=== PATIENT | male | born 1960 | race Caucasian/White ===

== ENCOUNTER 2024-10-19 13:56 | Inpatient (IN) | payer OTHER, SELFPAY ==
[2024-10-16 20:18] VITALS: BP 144/97
[2024-10-16 20:22] LABS: Glucose - Point of Care 121 mg/dl (70-99)
--- NOTE | 2024-10-16 20:38 | ED.CVA ---
History of Present Illness
General
Chief Complaint: CVA/TIA Symptoms
Source: patient, ambulance crew and other (Patient's roommate who I spoke to over the phone at [phone])
Exam Limitations: none
Time Seen by Provider: 10/16/24 20:22
Nursing documentation reviewed up to this point in time: agreed with
Onset of Stroke Symptoms
Onset of symptoms known: No
Date of onset of symptoms: 10/16/24
Time pt last seen normal is known: No
Date last time pt seen normal: 10/16/24
History of Present Illness
History of Present Illness:
The patient is a 63-year-old man with a past medical history of traumatic brain injury and strokes in the past with baseline ataxia and some speech difficulties, who was noticed by his roommate to have great trouble speaking and performing simple
tasks today at around 6 PM. His roommate reports that he was working all day today but when he got home at 6 PM, he noticed the changes with the patient. The patient is a vague historian. On arrival, he denies any speech issues, weakness,
numbness and headache. However, his roommate reports that he is greatly concerned about the changes that he is observed in the patient. He reports that prior to arrival to the ED, the patient was saying things that were completely
incomprehensible. He reports that he was completely slurring his words. Additionally, he reports that the patient had difficulty using a zipper as well as using utensils to eat. His remade states this is very unusual for him.
Past History
Past History
ED Past Medical History: CVA and Other (Traumatic brain injury 18 months ago )
ED Past Surgical History: Appendectomy, Orthopedic (Rotator cuff repair ) and Other (Hemorrhoidectomy )
Social History
Tobacco: Non-smoker
Alcohol: None
Drug: None
Personal: Single
Living: with roommate
Employment: Not employed (Recently lost his job)
Family History
Family History: Other
Review of Systems
Review of Systems
Allergies reviewed?: Yes
All Other Systems: ROS reviewed and negative except as documented in HPI and ROS
Constitutional: Reports no symptoms
EENT: Reports no symptoms
Respiratory: Reports no symptoms
Cardiac: Reports no symptoms
ABD/GI: Reports no symptoms
: Reports no symptoms
Musculoskeletal: Reports no symptoms
Skin: Reports no symptoms
Neurological: Reports other
Endocrine: Reports no symptoms
Hematologic/Lymphatic: Reports no symptoms
Psychiatric: Reports no symptoms
Phy Exam
Physical Exam
Physical Exam:
Physical Exam
General: no apparent distress, not acutely ill
Neck: supple. no meningeal signs. normal psoterior pharynx
Heart: s1/s2 regular rate and rhythm,
Lungs: no acute respiratory distress. clear bilaterally
Abdomen: normal bowel sounds. not tender. no CVAT
Neuro: alert and orientedx3 Cranial nerves equal and symmetric bilaterally. Patient very ataxic with finger-nose. Visual santos intact. Extraocular muscles intact. 5 out of 5 strength in all extremities with no
drift. Patient with slurring of speech and having some difficulty naming objects but overall speech is understandable
Skin: no rash
Psychiatric: well kept. interactive and cooperative
Extremities: no edema. no calf tenderness. negative homans. good distal pulses
Scores
NIH Stroke Score
Level of Consciousness: 0 - Alert
LOC Questions: 0-Answers both correctly
LOC Commands: 0-Performs both correctly
Best Horizontal Gaze: 0-Normal
Visual Santos: 0=Normal, no visual loss
Facial Palsy: 0=Normal, symmetrical
Motor - Right Arm: 0=No drift 10 seconds
Motor - Left Arm: 0=No drift 10 seconds
Motor - Right Le-No drift 5 seconds
Motor - Left Le-No drift 5 seconds
Limb Ataxia: 1-Present in one limb
Sensation: 0-Normal
Best Language: 1-Mild aphasia
Dysarthria: 1-Mild slurring
Extinction and Inattention: 0-No abnormality
Total Score:: 3
Course
Orders/Labs/Results
Orders:
Orders
10/16/24 20:33
CT Head W/o Iv Contrast Urgent
Comment:
Reason For Exam: aphasia
10/16/24 20:34
Urine Drug Abuse Screen Urgent
10/16/24 20:37
Electrocardiogram (*1) Urgent
Reason for Study: TIA/Stroke
EKG- Treatment ONCE
10/16/24 20:41
Alcohol Urgent
Basic Metabolic Panel Urgent
Complete Blood Count/With Diff Urgent
Abnormal Lab Results
10/16/24 10/16/24
20:20 20:41
RBC 4.05 L 10^6/uL
(4.70-6.10)
MCV 97.0 H fL
(80.0-94.0)
MCH 34.8 H pg
(27.0-31.0)
Absolute Monos (auto) 0.9 H 10^3/uL
(0.1-0.6)
Monocytes % 10.2 H %
(1.7-9.3)
Chloride 108 H mmol/L
(98-107)
Carbon Dioxide 21 L mmol/L
(22-30)
Calcium 7.0 L mg/dl
(8.4-10.2)
POC Glucose 121 H mg/dl
(70-99)
10/16/24 20:41
10/16/24 20:41
Vital Signs
Initial and Last Documented VS:
Initial Vital Signs
Temp Pulse Resp BP Pulse Ox
98 F 101 22 144/97 98
10/16/24 20:18 10/16/24 20:18 10/16/24 20:18 10/16/24 20:18 10/16/24 20:18
Last Documented Vital Signs
Temp Pulse Resp BP Pulse Ox
98 F 96 20 144/97 95
10/16/24 20:18 10/16/24 22:45 10/16/24 22:45 10/16/24 20:18 10/16/24 22:45
MDM/Problems Addressed
Differential Diagnosis Includes:
Acute CVA, hyponatremia, hypoglycemia, alcohol intoxication
MDM/Problems Addressed:
Patient arrives with increased difficulty speaking and performing simple tasks
Chronic conditions affecting care:
History of brain injury
Acute Exacerbation and/or Progression of Chronic Illness:
Patient may have acute exacerbation of chronic neurological infarct
*Radiology
Radiology exam reviewed: radiology read reviewed
*Pulse Oximetry
Patient hypoxic: no
*EKG
Interpreted by ED Provider?: Yes
Interpretation: normal
Comparison EKG: no comparison EKG present
Rate: normal
Rhythm: sinus
Buckner: normal axis
Interval: normal interval
QRS Pattern: normal QRS
Ischemia: no ischemia
*Hard Tile Setter Interpretation
Rate: normal
Interpretation: normal
Rhythm: sinus
*Critical Care Note
Total Time (30-74mins, 75-104mins- exclusive of procedures): Not Applicable
Data Reviewed
Review of Other/Old Records Reveals: Radiology Studies (CT head reviewed from 2018 which shows concerns for chronic infarcts)
Source: patient and other (Patient's roommate)
Update Note
Update Note:
Patient is not a thrombolytics candidate given time of onset of symptoms are unknown and stroke score is low at 3
ED Attending Note
-
Portions of this chart may have been created with voice recognition software.� Occasional wrong word or��sound alike� substitutions may have occurred due to the inherent limitations of voice recognition software.
Discharge Plan
Departure
Patient Disposition: Admit
Date of Disposition: 10/16/24
Time of Disposition: 22:52
Admit to: Telemetry
Presentation/result/management discussed w/ accepting MD/DO: Hospitalist
Patient with high blood pressure during this ER visit?: Yes
Condition: Fair
Covid-19: Not Applicable
Discharge Problem:
acute CVA
Prescriptions:
No Action
sertraline 25 MG tablet
25 mg PO DAILY
prednisone 20 MG tablet
40 mg PO DAILY Qty: 6 0RF
clindamycin HCl 300 MG capsule
300 mg PO TID Qty: 21 0RF
Referrals:
UNKNOWN - PT DOES,NOT KNOW [Family Provider] -
Interventions
Interventions:
*Risk Screen - Suicide Last Done: 10/16/24 20:18
*General Assessment Last Done: 10/16/24 20:18
*Neglect/Abuse Screening Last Done: 10/16/24 20:18
ED- Pulmonary Assessment Last Done: 10/16/24 21:39
ED- Neurological Assessment Last Done: 10/16/24 22:43
ED- Cardiac Assessment Last Done: 10/16/24 21:39
Discharge Date and Time
Print Language: NEPALI
[2024-10-16 20:52] LABS: % Basophils 0.9 % (0-2); % Eosinophils 2.2 % (0-6); % Immature Granulocytes 0.2 % (0-0.5); % Lymphocytes 23.9 % (20.5-51.1); % Monocytes 10.2 % (1.7-9.3); % Neutrophils 62.6 % (42.2-75.2); Absolute Basophils 0.1 10^3/uL (0-0.2); Absolute Eosinophils 0.2 10^3/uL (0-0.7); Absolute Lymphocytes 2.2 10^3/uL (1.2-3.4); Absolute Monocytes 0.9 10^3/uL (0.1-0.6); Absolute Neutrophils 5.7 10^3/uL (1.4-6.5); Hematocrit 39.3 % (39.0-52.0); Hemoglobin 14.1 g/dL (13.0-18.0); Mean Corp Hgb Conc. 35.9 g/dL (33.0-37.0); Mean Corpuscular Hgb 34.8 pg (27.0-31.0); Mean Platelet Volume 9.9 fL (7.4-10.4); Nucleated Red Blood Cells % 0 % (-); Platelet Count 261 10^3/uL (130-400); Red Blood Cell Count 4.05 10^6/uL (4.70-6.10); Red Cell Dist. Width 14.5 % (11.5-14.5); White Blood Cell Count 9.1 10^3/uL (4.8-10.8)
[2024-10-16 21:16] LABS: Alcohol None Detected; Blood Urea Nitrogen 16 mg/dl (9-20); Carbon Dioxide 21 mmol/L (22-30); Chloride 108 mmol/L (98-107); Glucose 85 mg/dl (70-99); Sodium 136 mmol/L (135-145); eGFR > 60.00
[2024-10-16 22:43] VITALS: BMI 29.1
[2024-10-16 23:00] VITALS: BP 131/92
--- NOTE | 2024-10-16 23:33 | HPS.HSE ---
Family Physician
-
Family Physician: NOT KNOW UNKNOWN - PT DOES
Chief Complaint
-
Slurred speech and dropping objects
History of Present Illness
This is a 63-year-old with past medical history significant for TBI, known word finding difficulties, prior occipital CVA about 15 years ago, brought in by EMS after a roommate found him to have some word finding difficulties and dropping objects.
Patient is a fairly poor historian likely due to memory issues. He himself denies any symptoms. Per EMS record with a roommate came home from work at around 6 PM and found patient with slurred speech and dropping objects. Was reported to be
incomprehensible which is unusual for him. Was having difficulty with was saying things that were completely incomprehensible. He had difficulty using a zipper as well as using utensils to eat. Patient himself denies any changes. He denies any
weakness. He reports some mild tingling at the fingertips but otherwise no other focal neurological deficits. He remembers his history of TBI. He does not remember his history of a CVA. He denies taking any medications. He denies having any
facial asymmetry, difficulty swallowing or speaking.
In the emergency department he was afebrile, blood pressure was 145/97 with a pulse of 96. ECG showed normal sinus rhythm with a rate of 97. He had a CT of the head which shows no acute findings. CBC was unremarkable. Electrolytes BUN/creatinine
were within normal range.
Medical History
Past Medical History
Past Medical History: Reports CVA
Additional Past Medical History:
Traumatic brain injury
Past Surgical History: Reports Appendectomy
Additional Past Surgical History:
Hernia repair
Social History
Tobacco: Smoker
Alcohol: Daily
Drug: None
Personal: Single
Living: With Roomate
Employment: Disabled
Family History
Family History: Not pertinent
Allergies / Home Medications
Allergies reflects when Allergies were last updated in [facility].
Home Medications with original date entered in [facility]
Allergy/Medication List:
Allergies
Allergy/AdvReac Type Severity Reaction Status Date / Time
amoxicillin [From Augmentin] Allergy Unknown Verified 10/16/24 20:18
clavulanic acid Allergy Unknown Verified 10/16/24 20:18
[From Augmentin]
Home Medications
sertraline 25 mg tablet 25 mg PO DAILY 01/17/10
prednisone 20 mg tablet 40 mg (2 x 20 mg) PO DAILY #6 tabs 10/31/19
clindamycin HCl 300 mg capsule 300 mg PO TID #21 caps 03/14/20
Review of Systems
-
Constitutional: Reports No Symptoms
EENT: Reports No Symptoms
Respiratory: Reports No Symptoms
Cardiac: Reports No Symptoms
Abdomen/GI: Reports No Symptoms
: Reports No Symptoms
Musculoskeletal: Reports No Symptoms
Skin: Reports No Symptoms
Neurological: Reports No Symptoms
Endocrine: Reports No Symptoms
Hematologic/Lymphatic: Reports No Symptoms
Psych: Reports No Symptoms
Physical Exam
Vital Signs
Vital Signs
Temp Pulse Resp BP Pulse Ox
98 F 96 20 144/97 95
10/16/24 20:18 10/16/24 22:45 10/16/24 22:45 10/16/24 20:18 10/16/24 22:45
Physical Exam
General: Well Developed, Well Nourished, No Apparent Distress and Comfortable
HEENT: NormoCephalic, Anicteric, Moist mucous membranes and Atraumatic
Respiratory: Clear
Cardiac: S1/S2 and Regular Rhythm
Breast: Deferred by me
GI: Soft, Non Tender, Non Distended and Normal Bowel Sounds
Rectal: Deferred by Provider
Genito-urinary: Deferred by me
Musculoskeletal: No Clubbing, No Cyanosis and No Edema
Skin: Warm
Neuro: AO x 3, Nonfocal/grossly intact and Slurred Speech
Psych: Calm
Laboratory Results
-
10/16/24 20:41
10/16/24 20:41
Laboratory Results
Total Bilirubin Cancelled 10/16/24 20:41
AST Cancelled 10/16/24 20:41
ALT Cancelled 10/16/24 20:41
Alkaline Phosphatase Cancelled 10/16/24 20:41
Data Reviewed
-
CT Scan: Report Reviewed by me
Lab Data: Labs Reviewed by me
Old Records: Reviewed
Impression/Plan
-
IMPRESSION:
Patient with history of TBI and prior CVA presents to the emergency department with episode of slurred speech and difficulty manipulating objects which are unusual for him. On my examination is speech remains slurred but he had no other focal
neurological deficits. Unclear whether the current finding is chronic or part of the presenting episode. Patient is not on any medications at home and is a very poor historian.
PLAN:
1. TIA/CVA
- admit to telemetry
- aspirin 81 for now
- check cardiovascular panel, tsh, esr, b12
- u/a
- MRI and MRA
- speech, pt ot consult
- neurology consult
DVT - lovenox sq
Code status - full code
[2024-10-17] VITALS (10 sets, daily range): BP systolic 124–163; BP diastolic 85–102; PULSE 83–88; O2SAT 96–99; BMI 28.9
--- NOTE | 2024-10-17 01:40 | PTCARENOTE ---
Pt received from ED via stretcher at 0120. Pt pleasant, AAOX3, VSS, and able to ambulate into room with 1x assistance. Bed alarm placed and plugged in. Pt exhibits slurred speech and dysphasia, unchanged from ED NIH assessment. Pt receptive to room
and call villalta. Pt bed in lowest position and call villalta within reach. Pt educated on importance of call villalta usage, pt relays understanding and cooperation. Will continue with current plan of care.
[2024-10-17 02:07] LABS: Urine Albumin Negative (Neg - Trace); Urine Bilirubin Negative (Negative); Urine Character Clear (Clear); Urine Color Yellow; Urine Glucose Negative (Negative); Urine Ketone Negative (Negative); Urine Leukocyte Negative (Negative); Urine Nitrite Negative (Negative); Urine Occult Blood 1+ (Negative); Urine Specific Gravity 1.015 (<1.030); Urine Urobilinogen Negative (Neg - 1+); Urine pH 6.5 (5.0-9.0)
[2024-10-17 02:25] LABS: Amphetamines Negative (Negative); Barbiturates Negative (Negative); Benzodiazepines Negative (Negative); Buprenorphine Negative (Negative); Cocaine Negative (Negative); Marijuana Negative (Negative); Methadone Negative (Negative); Methamphetamines Negative (Negative); Opiates Negative (Negative); Phencyclidine Negative (Negative); Tricyclic Antidepressants Negative (Negative); Urine Bacteria Few (Negative); Urine White Cell 0-2 /HPF (0-5)
[2024-10-17] MEDS: LOW STRENGTH ASPIRIN 81 MG PO (08:10)
[2024-10-17 08:50] LABS: Erythrocyte Sed Rate 14 mm/hour (0-20)
[2024-10-17 09:16] LABS: Blood Urea Nitrogen 14 mg/dl (9-20); Calcium 8.7 mg/dl (8.4-10.2); Carbon Dioxide 23 mmol/L (22-30); Chloride 105 mmol/L (98-107); Estimated Creatinine Clearance 80 ml/min; Glucose 98 mg/dl (70-99); HDL Cholesterol 64 mg/dl; LDL Cholesterol, Calculated 122 mg/dl; Potassium 4.2 mmol/L (3.5-5.1); Sodium 139 mmol/L (135-145); Total Cholesterol 207 mg/dl (50-199); Triglyceride 105 mg/dl (10-149); Very Low Density Lipoprotein 21 mg/dl (0-30); eGFR > 60.00
[2024-10-17 10:02] LABS: Glycohemoglobin (HgbA1c) 5.3 % (4.0-5.6)
[2024-10-17] MEDS: PLAVIX 300 MG PO (12:30)
--- NOTE | 2024-10-17 14:58 | PTOTSP ---
Speech Therapy Evaluation:
Pt exhibits clinical signs of oropharyngeal dysphagia, likely acute on chronic related to history of CVA and TBI, compounded by acute/subacute infarcts throughout left cerebral hemisphere. Pt remains at in increased risk of aspiration and related
complication given cognitive status with noted impulsivity in relation to bolus size. Pt demonstrated no overt s/sx of aspiration on evaluation and passed nursing 3oz swallow screen. WBC WNL. No CXR completed at this time.
Additionally, pt presents with mild dysarthria in conversation as characterized by reduced articulatory precision, resulting in mildly decreased speech intelligibility. Pt with known cognitive deficits, however no documentation of ST hx or
standardized testing on file, therefore difficult to differentiate new versus old deficits. Pt would benefit from ongoing assessment.
Recommend:
1. Continue regular solids and thin liquids
2. Medications as tolerated
3. General aspiration precautions
4. Supervision with PO intake to ensure small bites/sips and slow rate
5. ELECTRIC SHIPYARD OPERATOR to follow to monitor tolerance of current diet level (likely brief) and for further cognitive assessment given level of independence CAN CRIMPER with acute on chronic CVA and TBI
--- NOTE | 2024-10-17 15:03 | W.PN.HOSP.TC ---
Today's Communication/Plan
-
neuro recs
dapt
echo
carotid us
Assessment / Plan
Assessment / Plan
General: Well Developed, Well Nourished, No Apparent Distress and Comfortable
HEENT: NormoCephalic, Anicteric, Moist mucous membranes and Atraumatic
Respiratory: Clear
Cardiac: S1/S2 and Regular Rhythm
Breast: Deferred by me
GI: Soft, Non Tender, Non Distended and Normal Bowel Sounds
Rectal: Deferred by Provider
Genito-urinary: Deferred by me
Musculoskeletal: No Clubbing, No Cyanosis and No Edema
Skin: Warm
Neuro: AO x 3, Nonfocal/grossly intact and Slurred Speech
Psych: Calm
Patient with history of TBI and prior CVA presents to the emergency department with episode of slurred speech and difficulty manipulating objects which are unusual for him. On my examination is speech remains slurred but he had no other focal
neurological deficits. Unclear whether the current finding is chronic or part of the presenting episode. Patient is not on any medications at home and is a very poor historian.
PLAN:
#CVA
#Several scattered small nonhemorrhagic acute/subacute infarcts throughout the left cerebral hemisphere
� Plavix load, continue Plavix daily
� Continue aspirin
� Neurology consulted
� Initiate statin
� Hemoglobin A1c 5.3
� Follow-up echo
� Follow-up carotid ultrasounds
DVT - lovenox sq
Code status - full code
Total time spent on today's encounter was 50 minutes which included time spent in counseling the patient/family regarding diagnosis and treatment plan as listed above, goals of care, and symptom management. Case was discussed with nursing staff,
specialists, and care coordinators/case management. All labs and imaging personally reviewed by me. Remainder the time spent in detailed review of previous records, lab data, imaging, and other medical provider documentation.
Anticipated Discharge: > 48 hours
Subjective/Interval History
-
Date of Service: October 17, 2024
No acute events
Objective Data
-
Labs:
Laboratory Results
10/17/24
07:45
Sodium 139
Potassium 4.2
Chloride 105
Carbon Dioxide 23
BUN 14
Creatinine 0.9
Glucose 98
Calcium 8.7 D
Vital Signs:
Vital Signs
Temp Pulse Resp BP Pulse Ox
97.6 F 67 18 134/85 96
10/17/24 11:57 10/17/24 11:57 10/17/24 11:57 10/17/24 11:57 10/17/24 11:57
I&O
10/16/24 10/17/24 10/18/24
06:59 06:59 06:59
Output Total 450 / 450
Balance -450 / -450
Review of Systems
-
History Source: Patient
All other systems: Not reviewed unless documented
Data Reviewed
-
CT Scan: Report Reviewed by me
MRI: Report Reviewed by me
Labs: Labs Reviewed by me
[2024-10-17] MEDS: LIPITOR 40 MG PO (17:59)
[2024-10-17] MEDS: LOVENOX 40 MG SC (17:59)
[2024-10-18 03:00] VITALS: BP 133/92
[2024-10-18 07:03] VITALS: BP 157/85
[2024-10-18 08:08] LABS: Hemoglobin 15.1 g/dL (13.0-18.0); Mean Corp Hgb Conc. 35.1 g/dL (33.0-37.0); Mean Corpuscular Hgb 34.2 pg (27.0-31.0); Mean Corpuscular Volume 97.5 fL (80.0-94.0); Mean Platelet Volume 9.7 fL (7.4-10.4); Platelet Count 285 10^3/uL (130-400); Red Blood Cell Count 4.41 10^6/uL (4.70-6.10); Red Cell Dist. Width 14.6 % (11.5-14.5)
[2024-10-18] MEDS: PLAVIX 75 MG PO (08:09)
[2024-10-18] MEDS: LOW STRENGTH ASPIRIN 81 MG PO (08:09)
[2024-10-18 08:38] LABS: ALT (SGPT) 34 U/L (0-50); AST (SGOT) 31 U/L (17-59); Alkaline Phosphatase 61 U/L (38-126); Blood Urea Nitrogen 14 mg/dl (9-20); Calcium 8.6 mg/dl (8.4-10.2); Carbon Dioxide 23 mmol/L (22-30); Chloride 104 mmol/L (98-107); Estimated Creatinine Clearance 80 ml/min; Glucose 94 mg/dl (70-99); Potassium 4.4 mmol/L (3.5-5.1); Sodium 136 mmol/L (135-145); Total Bilirubin 1.3 mg/dl (0.2-1.3); Total Protein 6.9 g/dl (6.3-8.2); eGFR > 60.00
[2024-10-18 11:06] VITALS: BP 130/86
--- NOTE | 2024-10-18 12:27 | CM ---
Pt seen bedside. Initial assessment completed. Admitted for slurred speech and dropping objects.
Pt reports that he lives w/ his friend, Will, in a [employer]- 6 steps to enter.
Pt states he is independent, denies any DME use.
Pt denies SNF/VN/PT hx. Pt states he did engage in OP therapy about 6 years ago.
Address, points of contact and insurance verified.
Pt reports that he is unemployed and uninsured at this time.
PCP: Pt states he does not have a PCP at this time
Pharmacy: Per chart, pt has [facility]. Pt belongs to [facility] in [place]
Plan: CM will cont to follow hospital course for d/c planning
--- NOTE | 2024-10-18 13:42 | CON.NEURO ---
Neuro Assessment/Plan
Assessment
brain MRI imgs rev'd, multiple scattered L MCA territory infarcts
MRA head/neck does not show any vascular lesions to explain this
Acute stroke
concern for cardioembolic etiology, as the L mca is the straightest path for emboli to travel
likelihood of finding source ~1/3
would advise cardiology consult for DALTON, zio patch
Consultation
Order
Date of Consultation: 10/17/24
Requesting Provider: D
Reason for Consult:
Subjective/Objective
Subjective Data
Date of Service: October 17, 2024
Seen yesterday, late note
This is a 63-year-old with past medical history significant for TBI, known word finding difficulties, prior occipital CVA about 15 years ago, brought in by EMS after a roommate found him to have some word finding difficulties and dropping objects.
difficulty using eating utensil, zipper
Patient is a fairly poor historian likely due to memory issues. He himself denies any symptoms.
Objective Data
Vital Signs
Temp Pulse Resp BP Pulse Ox
36.7 C 65 16 130/86 97
10/18/24 11:06 10/18/24 11:06 10/18/24 11:06 10/18/24 11:06 10/18/24 11:06
Lab Results
10/18/24 06:25
10/18/24 06:25
Sodium 136 mmol/L (135-145) 10/18/24 06:25
Potassium 4.4 mmol/L (3.5-5.1) 10/18/24 06:25
BUN 14 mg/dl (9-20) 10/18/24 06:25
Glucose 94 mg/dl (70-99) 10/18/24 06:25
Calcium 8.6 mg/dl (8.4-10.2) 10/18/24 06:25
LDL Cholesterol, Calc 122 mg/dl 10/17/24 07:45
Ur Buprenorphine Negative (Negative) 10/17/24 01:57
Patient Allergies
amoxicillin [From Augmentin] Allergy (Verified 10/16/24 20:18)
Unknown
clavulanic acid [From Augmentin] Allergy (Verified 10/16/24 20:18)
Unknown
Physical Exam
-
AAOx3, speech clear, language intact
VFF, EOMI, face symmetric
full strength b/l UE/LE
sensation intact touch/pin
DTR normal and symmetric
mild distal dysmetria
Medications
-
Active Medications
Generic Name Dose Route Start Last Admin
Trade Name Freq PRN Reason Stop Dose Admin
Acetaminophen 650 mg 10/17/24 01:12
Acetaminophen 650 Mg Rectal Suppository RECTAL 11/14/24 01:11
Q4HPRN PRN
MCKEON, mild pain, or temp >100.4F
Acetaminophen 650 mg 10/17/24 01:12
Acetaminophen 325 Mg Tablet PO 11/14/24 01:11
Q4HPRN PRN
MCKEON, mild pain, or temp >100.4F
Aspirin 81 mg 10/17/24 08:00 10/18/24 08:09
Aspirin 81 Mg Chewable Tablet PO 11/14/24 07:59 81 mg
DAILY DESTIN Administration
Atorvastatin Calcium 40 mg 10/17/24 18:00 10/17/24 17:59
Atorvastatin (Lipitor) 40 Mg Tablet PO 11/14/24 17:59 40 mg
QPM DESTIN Administration
Clopidogrel Bisulfate 75 mg 10/18/24 08:00 10/18/24 08:09
Clopidogrel 75 Mg Tablet PO 11/07/24 08:01 75 mg
DAILY DESTIN Administration
Enoxaparin Sodium 40 mg 10/17/24 18:00 10/17/24 17:59
Enoxaparin Sodium 40 Mg/0.4 Ml Syringe SC 11/14/24 17:59 40 mg
QPM DESTIN Administration
Sodium Chloride 0 flush 10/17/24 02:00
Sodium Chloride 0.9% (Flush) Syringe IV 11/14/24 01:59
PER PROTOCOL DESTIN
Home Medications
�Medication �Instructions �Recorded
No Meds [No Current Medications] 10/17/24
--- NOTE | 2024-10-18 14:32 | W.PN.HOSP.TC ---
Today's Communication/Plan
-
Plan for DALTON tentatively tomorrow
DAPT, Statin
Assessment / Plan
Assessment / Plan
General: Well Developed, Well Nourished, No Apparent Distress and Comfortable
HEENT: NormoCephalic, Anicteric, Moist mucous membranes and Atraumatic
Respiratory: Clear
Cardiac: S1/S2 and Regular Rhythm
Breast: Deferred by me
GI: Soft, Non Tender, Non Distended and Normal Bowel Sounds
Rectal: Deferred by Provider
Genito-urinary: Deferred by me
Musculoskeletal: No Clubbing, No Cyanosis and No Edema
Skin: Warm
Neuro: AO x 3, Nonfocal/grossly intact and Slurred Speech
Psych: Calm
Patient with history of TBI and prior CVA presents to the emergency department with episode of slurred speech and difficulty manipulating objects which are unusual for him. On my examination is speech remains slurred but he had no other focal
neurological deficits. Unclear whether the current finding is chronic or part of the presenting episode. Patient is not on any medications at home and is a very poor historian.
PLAN:
#CVA
#Several scattered small nonhemorrhagic acute/subacute infarcts throughout the left cerebral hemisphere sinus
� Concern for cardioembolic etiology
� Plavix load, continue Plavix daily
� Continue aspirin
� Neurology consulted
� Initiate statin
� Hemoglobin A1c 5.3
� Follow-up echo
� Plan for DALTON tomorrow, cardiology aware
DVT - lovenox sq
Code status - full code
Total time spent on today's encounter was 52 minutes which included time spent in counseling the patient/family regarding diagnosis and treatment plan as listed above, goals of care, and symptom management. Case was discussed with nursing staff,
specialists, and care coordinators/case management. All labs and imaging personally reviewed by me. Remainder the time spent in detailed review of previous records, lab data, imaging, and other medical provider documentation.
Anticipated Discharge: 24 - 48 hours
Subjective/Interval History
-
Date of Service: October 18, 2024
No acute events
Objective Data
-
Labs:
Laboratory Results
10/18/24
06:25
WBC 8.0
Hgb 15.1
Hct 43.0
Plt Count 285
Sodium 136
Potassium 4.4
Chloride 104
Carbon Dioxide 23
BUN 14
Creatinine 0.9
Glucose 94
Calcium 8.6
Total Bilirubin 1.3
AST 31
ALT 34
Alkaline Phosphatase 61
Vital Signs:
Vital Signs
Temp Pulse Resp BP Pulse Ox
98.0 F 65 16 130/86 97
10/18/24 11:06 10/18/24 11:06 10/18/24 11:06 10/18/24 11:06 10/18/24 11:06
I&O
10/17/24 10/18/24 10/19/24
06:59 06:59 06:59
Output Total 450 / 450
Balance -450 / -450
Review of Systems
-
History Source: Patient
All other systems: Not reviewed unless documented
Data Reviewed
-
CT Scan: Report Reviewed by me
MRI: Report Reviewed by me
Labs: Labs Reviewed by me
[2024-10-18 15:06] VITALS: BP 150/81
[2024-10-18] MEDS: LOVENOX 40 MG SC (17:03)
[2024-10-18] MEDS: LIPITOR 40 MG PO (17:03)
[2024-10-18 19:00] VITALS: BP 129/89
[2024-10-18 23:00] VITALS: BP 149/90
[2024-10-19] VITALS (7 sets, daily range): BP systolic 136–153; BP diastolic 88–96; PULSE 67
[2024-10-19] MEDS: LOW STRENGTH ASPIRIN 81 MG PO (08:13)
[2024-10-19] MEDS: PLAVIX 75 MG PO (08:13)
--- NOTE | 2024-10-19 08:16 | CON.CAR ---
Addendum entered and electronically signed by Audi Mehta DO 10/19/24 10:14:
I saw and examined the patient.
The Spinning Operator's note was reviewed and I agree with the note.
Comment:
Plan:
HPI: Patient came to [facility] ER on Saturday night with symptoms of possible stroke and MRI later demonstrated acute and subacute infarcts that are concerning for cardioembolic phenomenon and so cardiology has been consulted. Patient lives
with a roommate, patient is currently not working and has no insurance. Patient's roommate found patient to be confused and unable to speak in intelligible speech and also noted him to have trouble holding a fork to feed himself as of of his pants
on Saturday night. All this was unusual for the patient and so his roommate sent patient to the ER if patient was admitted. MRI of the brain showed several scattered small nonhemorrhagic acute and subacute infarcts throughout the left cerebral
hemisphere in the left MCA territory and this is concerning for possible cardioembolic phenomenon per neurology input. Neurology is recommending a DALTON. Patient denies history of DALTON and has never had upper endoscopy to his knowledge. Patient
denies any trouble swallowing. No history of varices. 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
Plan:
Discussed DALTON procedure including risks and benefits. He is agreeable.
Discussed 14 day monitor and he was agreeable.
Neuro work up and eval ongoing.
Patient was advised on the importance of smoking cessation.
Cont DAPT.
Original Note:
Consultation
Consultation Request
Date/Time Consultation Requested: 10/18/24 at 1700
Date/Time Consultation Performed: 10/19/24 at 0724
Requesting Provider: Dr. Heredia
Performing Provider: Dr. Mehta
Reason for Consultation: CVA, evaluation for DALTON
Medical History
-
History of Present Illness:
Patient came to [facility] ER on Saturday night with symptoms of possible stroke and MRI later demonstrated acute and subacute infarcts that are concerning for cardioembolic phenomenon and so cardiology has been consulted. Patient lives with
a roommate, patient is currently not working and has no insurance. Patient's roommate found patient to be confused and unable to speak in intelligible speech and also noted him to have trouble holding a fork to feed himself as of of his pants on
Saturday night. All this was unusual for the patient and so his roommate sent patient to the ER if patient was admitted. MRI of the brain showed several scattered small nonhemorrhagic acute and subacute infarcts throughout the left cerebral
hemisphere in the left MCA territory and this is concerning for possible cardioembolic phenomenon per neurology input. Neurology is recommending a DALTON. Patient denies history of DALTON and has never had upper endoscopy to his knowledge. Patient
denies any trouble swallowing. No history of varices. 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
PMH:
h/o subacute left occipital CVA 01/2010
h/o seizures
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
Smoker
Past Medical History
Past Medical History: Other (in HPI)
Past Surgical History: Appendectomy and Orthopedic
Social History
Tobacco: Smoker
Alcohol: Occasional (2-4 times a month)
Drug: None
Personal: Single
Living: With Roomate
Employment: Not Employed
Family History
Family History: Cancer
Allergies / Home Medications
Allergy/AdvReac Type Severity Reaction Status Date / Time
amoxicillin [From Augmentin] Allergy Unknown Verified 10/16/24 20:18
clavulanic acid Allergy Unknown Verified 10/16/24 20:18
[From Augmentin]
�Medication �Instructions �Recorded �Confirmed �Type
No Meds [No Current Medications] 10/17/24 10/17/24 History
Review of Systems
-
History Source: Patient
All other systems: Negative unless noted
Physical Exam
Vital Signs
Temp Pulse Resp BP Pulse Ox
97.7 F 70 18 148/96 96
10/19/24 08:13 10/19/24 08:13 10/19/24 08:13 10/19/24 08:13 10/19/24 08:13
GEN: Sleeping initially then awakens easily and is in NAD. AAOx3
HEENT: EOMI, MMM
LUNGS: RA. CTA B/L, no wheezes or rales
CV: SR on tele. Reg, S1/S2, no murmur
ABD: soft, BS+, NT, ND
EXT: No clubbing, cyanosis, lesions or edema B/L
NEURO: Gross non-focal
SKIN: Warm, dry and pink. No rash
Lab Results
CBC 10/18/2024: Hemoglobin 15.1, WBC 8, PLT 285
Chemistry 10/18/2024: Sodium 136, potassium 4.4, BUN 14, creatinine 0.9, blood sugar 94, AST 31, ALT 34
CVE 10/17/2024: Total cholesterol 207, TG 105, LDL 122, HDL 64
Impression / Plan
-
PCP: None
Cardiology: None
Impression:
Admitted with possible CVA, dysarthria 10/16/24
Scattered small nonhemorrhagic acute/subacute infarcts throughout the left cerebral hemisphere by MRI 10/17/24
h/o subacute left occipital CVA 01/2010
h/o seizures
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
Smoker
Echo 01/17/2010: Normal echo, EF 55%, no significant valve disease
Plan:
-Patient came to [facility] ER on Saturday night with symptoms of possible stroke and MRI later demonstrated acute and subacute infarcts that are concerning for cardioembolic phenomenon and so cardiology has been consulted. Patient lives
with a roommate, patient is currently not working and has no insurance. Patient's roommate found patient to be confused and unable to speak in intelligible speech and also noted him to have trouble holding a fork to feed himself as of of his pants
on Saturday night. All this was unusual for the patient and so his roommate sent patient to the ER if patient was admitted. MRI of the brain showed several scattered small nonhemorrhagic acute and subacute infarcts throughout the left cerebral
hemisphere in the left MCA territory and this is concerning for possible cardioembolic phenomenon per neurology input. Neurology is recommending a DALTON. Patient denies history of DALTON and has never had upper endoscopy to his knowledge. Patient
denies any trouble swallowing. No history of varices. 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
-ECG reviewed by me shows NSR without acute ST changes. Telemetry from this admission thus far reviewed by me at length and shows no evidence of atrial arrhythmia.
-Talked with patient about findings on MRI being suggestive of possible cardioembolic event. Talked about possible sources including blood clot in the heart and patient says that he understands. We talked about proceeding with a DALTON to better
visualize and rule out clot. We talked about DALTON procedure and risks versus benefits. Patient reports he makes his own medical decisions. Patient denies trouble swallowing or history of varices. Patient says he would be agreeable to proceed with
DALTON today.
-Will plan on DALTON 10/19/2024. We can likely cancel the previously planned TTE
-Could consider placing a 14 day Medilynx prior to d/c.
-Patient was advised on the importance of smoking cessation, but he is under a lot of stress because he is not working and it is also a habit while he is home alone.
-LDL 122 and patient was started on atorvastatin 40 mg daily, but he is not sure if he will be able to afford this.
-Patient was also started on aspirin and Plavix this admission and again he is not sure if he will be able to pay for this, but is hoping that he can buy generic medications.
-Patient also has a h/o seizure disorder and is no longer on antiseizure meds because he has not been able to afford to see any of his doctors and his prescriptions ran out.
-Patient reports his only family is a son who lives in [place], otherwise he relies on his roommate.
[2024-10-19 08:37] LABS: Hemoglobin 15.1 g/dL (13.0-18.0); Mean Corpuscular Hgb 34.6 pg (27.0-31.0); Mean Corpuscular Volume 96.1 fL (80.0-94.0); Platelet Count 286 10^3/uL (130-400); Red Blood Cell Count 4.37 10^6/uL (4.70-6.10); Red Cell Dist. Width 14.5 % (11.5-14.5); White Blood Cell Count 8.2 10^3/uL (4.8-10.8)
[2024-10-19 09:11] LABS: ALT (SGPT) 37 U/L (0-50); AST (SGOT) 35 U/L (17-59); Albumin 4.1 g/dl (3.5-5.0); Alkaline Phosphatase 62 U/L (38-126); Blood Urea Nitrogen 15 mg/dl (9-20); Calcium 8.8 mg/dl (8.4-10.2); Carbon Dioxide 23 mmol/L (22-30); Chloride 103 mmol/L (98-107); Estimated Creatinine Clearance 72 ml/min; Glucose 98 mg/dl (70-99); Potassium 4.6 mmol/L (3.5-5.1); Sodium 137 mmol/L (135-145); Total Bilirubin 1.1 mg/dl (0.2-1.3); Total Protein 7.2 g/dl (6.3-8.2); eGFR > 60.00
--- NOTE | 2024-10-19 11:17 | CM ---
CM placed a call to [facility] regarding MA for pt, left message.
Will provide pt w/ [facility] information as he does not belong to a PCP or current w/ any insurance.
Per chart, plan for DALTON procedure today
Plan: Home; no needs anticipated
CM will cont to follow for support and d/c planning
--- NOTE | 2024-10-19 13:26 | PTOTSP ---
Speech Therapy: Cognitive eval completed. Moderate to severe cognitive communication deficits characterized by poor expressive formulation, poor memory, limited insight into deficits, visual spatial deficits, decreased reasoning and attention.
Speech therapy is recommended to address these issues. Patient reports that he just needs to go home; does not think he will need any assistance after discharge. [place] Cognitive Assessment score of 12/30 (normal is >25)
--- NOTE | 2024-10-19 13:47 | W.PN.UPDATE ---
Update Note
Progress Note Update
.
Reviewed the DALTON with patient. He has a positive PFO by agitated saline contrast study. We discussed outpatient follow-up with interventional cardiology to discuss possible PFO closure if he turns out to be an acceptable candidate. He was not
enthusiastic about considering this but was not against following up. He may ultimately choose medical therapy.
--- NOTE | 2024-10-19 16:09 | W.PN.HOSP.TC ---
Today's Communication/Plan
-
US Legs
DC planning
Assessment / Plan
Assessment / Plan
Patient with history of TBI and prior CVA presents to the emergency department with episode of slurred speech and difficulty manipulating objects which are unusual for him. On my examination is speech remains slurred but he had no other focal
neurological deficits. Unclear whether the current finding is chronic or part of the presenting episode. Patient is not on any medications at home and is a very poor historian.
PLAN:
#Acute CVA
#Several scattered small nonhemorrhagic acute/subacute infarcts throughout the left cerebral hemisphere sinus
� Concern for cardioembolic etiology
� Plavix load, continue Plavix daily
� Continue aspirin
� Neurology consulted
� Initiated statin
� Hemoglobin A1c 5.3
� DALTON shows PFO but no cardiac source of emboli. Check US legs to rule out DVT
- For OP tele monitor
# PFO - follow with cards as OP
PT/OT eval
DC planning
DVT - lovenox sq
Code status - full code
Anticipated Discharge: Within 24 hours
Subjective/Interval History
-
Date of Service: October 19, 2024
He denies any limb weakness.
Feels speech was impaired.
He lives with a roommate. No immediate family per pt.
Denies MCKEON today.
He seems not to grasp the medical info given to him by me today . When told he had stroke , he didnt have any inquires further. He seems to have poor insight into his issues. He has hx of TBI .
Objective Data
-
Labs:
Laboratory Results
10/19/24
07:35
WBC 8.2
Hgb 15.1
Hct 42.0
Plt Count 286
Sodium 137
Potassium 4.6
Chloride 103
Carbon Dioxide 23
BUN 15
Creatinine 1.0
Glucose 98
Calcium 8.8
Total Bilirubin 1.1
AST 35
ALT 37
Alkaline Phosphatase 62
Vital Signs:
Vital Signs
Temp Pulse Resp BP Pulse Ox
97.0 F 60 18 153/88 96
10/19/24 15:34 10/19/24 15:34 10/19/24 15:34 10/19/24 15:34 10/19/24 15:34
I&O
10/18/24 10/19/24 10/20/24
06:59 06:59 06:59
Intake Total 420 / 420
Balance 420 / 420
Review of Systems
-
Unable to obtain full review of systems at this time due to: Other (due to cognitive issues)
Physical Exam
-
General: No Apparent Distress
Respiratory: Non Labored Respirations; Negative Accessory Resp Muscle Use
Cardiac: Regular Rhythm and S1/S2; Negative Tachycardic
GI: Soft
Neuro: AO x 3, No Motor Deficits and Other (speech slow but seems to get right words out); Negative Tremors or Facial Droop
Psych: Calm
Data Reviewed
-
Labs: Labs Reviewed by me
[2024-10-19] MEDS: LIPITOR 40 MG PO (16:44)
[2024-10-19] MEDS: LOVENOX 40 MG SC (16:44)
[2024-10-20 03:31] VITALS: BP 142/91
[2024-10-20 07:20] VITALS: BP 143/88
[2024-10-20 07:58] LABS: Hemoglobin 15.1 g/dL (13.0-18.0); Mean Corpuscular Hgb 34.7 pg (27.0-31.0); Mean Corpuscular Volume 96.6 fL (80.0-94.0); Mean Platelet Volume 10.1 fL (7.4-10.4); Platelet Count 275 10^3/uL (130-400); Red Blood Cell Count 4.35 10^6/uL (4.70-6.10); Red Cell Dist. Width 14.6 % (11.5-14.5); White Blood Cell Count 7.7 10^3/uL (4.8-10.8)
[2024-10-20 08:36] LABS: ALT (SGPT) 38 U/L (0-50); AST (SGOT) 33 U/L (17-59); Albumin 3.9 g/dl (3.5-5.0); Alkaline Phosphatase 55 U/L (38-126); Blood Urea Nitrogen 17 mg/dl (9-20); Calcium 8.7 mg/dl (8.4-10.2); Carbon Dioxide 24 mmol/L (22-30); Chloride 104 mmol/L (98-107); Estimated Creatinine Clearance 72 ml/min; Glucose 100 mg/dl (70-99); Potassium 4.9 mmol/L (3.5-5.1); Sodium 137 mmol/L (135-145); Total Protein 6.9 g/dl (6.3-8.2); eGFR > 60.00
[2024-10-20] MEDS: PLAVIX 75 MG PO (08:39)
[2024-10-20] MEDS: LOW STRENGTH ASPIRIN 81 MG PO (08:39)
--- NOTE | 2024-10-20 09:22 | W.PN.CARDCBS ---
Today's Communication / Plan
-
Again reviewed the DALTON with patient. He has a positive PFO by agitated saline contrast study.
Again discussed outpatient follow-up with interventional cardiology to discuss possible PFO closure if he turns out to be an acceptable candidate.
-He was not enthusiastic about considering this but was not against following up. He may ultimately choose medical therapy.
A 14 day Medilynx monitor has been placed.
Smoking cessation discussed.
LDL 122 and patient was started on atorvastatin 40 mg daily, but he is not sure if he will be able to afford this.
Cont DAPT as per neuro. Seizure disorder tx as per neuro.
Pt reports his only family is a son who lives in [place], otherwise he relies on his roommate.
Will arrange outpt follow up.
Please recall if needed.
Impression / Plan
-
.
PCP: None
Cardiology: None
Impression:
Admitted with possible CVA, dysarthria 10/16/24
Scattered small nonhemorrhagic acute/subacute infarcts throughout the left cerebral hemisphere by MRI 10/17/24
h/o subacute left occipital CVA 01/2010
h/o seizures
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
Smoker
PFO by agitated saline contrast study
Echo 01/17/2010: Normal echo, EF 55%, no significant valve disease
Plan:
Again reviewed the DALTON with patient. He has a positive PFO by agitated saline contrast study.
Again discussed outpatient follow-up with interventional cardiology to discuss possible PFO closure if he turns out to be an acceptable candidate.
-He was not enthusiastic about considering this but was not against following up. He may ultimately choose medical therapy.
A 14 day Medilynx monitor has been placed.
Smoking cessation discussed.
LDL 122 and patient was started on atorvastatin 40 mg daily, but he is not sure if he will be able to afford this.
Cont DAPT as per neuro. Seizure disorder tx as per neuro.
Pt reports his only family is a son who lives in [place], otherwise he relies on his roommate.
Will arrange outpt follow up.
Please recall if needed.
HPI: Patient came to [facility] ER on Saturday night with symptoms of possible stroke and MRI later demonstrated acute and subacute infarcts that are concerning for cardioembolic phenomenon and so cardiology has been consulted. Patient lives
with a roommate, patient is currently not working and has no insurance. Patient's roommate found patient to be confused and unable to speak in intelligible speech and also noted him to have trouble holding a fork to feed himself as of of his pants
on Saturday night. All this was unusual for the patient and so his roommate sent patient to the ER if patient was admitted. MRI of the brain showed several scattered small nonhemorrhagic acute and subacute infarcts throughout the left cerebral
hemisphere in the left MCA territory and this is concerning for possible cardioembolic phenomenon per neurology input. Neurology is recommending a DALTON. Patient denies history of DALTON and has never had upper endoscopy to his knowledge. Patient
denies any trouble swallowing. No history of varices. 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
Progress Note - Senior Grants Officer
Subjective
Date of Service: October 20, 2024
Pt seen and examined. No complaints. No chest pain or shortness of breath.
Objective
Labs:
10/20/24 07:32
10/20/24 07:32
Labs
Hgb 15.1 g/dL (13.0-18.0) 10/20/24 07:32
Hct 42.0 % (39.0-52.0) 10/20/24 07:32
Plt Count 275 10^3/uL (130-400) 10/20/24 07:32
Sodium 137 mmol/L (135-145) 10/20/24 07:32
Potassium 4.9 mmol/L (3.5-5.1) 10/20/24 07:
BUN 17 mg/dl (9-20) 10/20/24 07:32
Creatinine 1.0 mg/dL (0.7-1.3) 10/20/24 07:32
Glucose 100 mg/dl (70-99) H 10/20/24 07:32
Vital Signs and I&O:
Vital Signs
Temp Pulse Resp BP Pulse Ox
97.9 F 57 18 143/88 97
10/20/24 07:20 10/20/24 07:20 10/20/24 07:20 10/20/24 07:20 10/20/24 07:20
Vital Signs
Temp Pulse Resp BP Pulse Ox
97.9 F 57 18 143/88 97
10/20/24 07:20 10/20/24 07:20 10/20/24 07:20 10/20/24 07:20 10/20/24 07:20
Intake & Output
10/18/24 10/19/24 10/20/24 10/21/24
06:59 06:59 06:59 06:59
Intake Total 420 / 420 720 / 720
Balance 420 / 420 720 / 720
Physical Exam
Physical Exam
General: No acute distress, AAOX3
Neck: Negative JVD
Heart: Regular, Negative S3 positive S1/S2, Negative S4, No murmur
Lungs: CTA b/l, negative wheezes/rales/rhonchi
Abd: Positive BS, NT/ND, neg rebound/rigidity/guarding
Ext: Negative cyanosis/clubbing/edema
Neuro: nonfocal
--- NOTE | 2024-10-20 10:54 | CM ---
Addendum entered by Loulou Govea 10/20/24 12:24:
Per physician therapy recommendation is for acute rehab, patient reevaluated and referral sent to [facility], multiple messages left with [facility] to evaluate patient.
Addendum entered by Loulou Govea 10/20/24 10:58:
Information on [facility] will be provided to patient.
Original Note:
manager library reviewed patient's chart and spoke with patient and patient made aware that he has switched to inpatient, patient has no insurance, patient was working for [employer], but no longer has an income or medical insurance, referral sent to [facility]
to evaluate for medical insurance. manager library reached out to [facility] who reviewed patient progress with physical therapy and patient does not meet acute rehab criteria.
Plan; Plan is to home, referral sent to [facility].
[2024-10-20 11:50] VITALS: BP 136/90
--- NOTE | 2024-10-20 12:28 | W.PN.HOSP.TC ---
Today's Communication/Plan
-
DC planning
Assessment / Plan
Assessment / Plan
Patient with history of TBI and prior CVA presents to the emergency department with episode of slurred speech and difficulty manipulating objects which are unusual for him. On my examination is speech remains slurred but he had no other focal
neurological deficits. Unclear whether the current finding is chronic or part of the presenting episode. Patient is not on any medications at home and is a very poor historian.
PLAN:
#Acute CVA
#Several scattered small nonhemorrhagic acute/subacute infarcts throughout the left cerebral hemisphere sinus
� Concern for cardioembolic etiology
� Plavix loaded, continue Plavix daily
� Continue aspirin
� Neurology consulted -discussed with them today-advised to continue with medical treatment and okay for discharge from their standpoint.
� Initiated statin
� Hemoglobin A1c 5.3
� DALTON shows PFO but no cardiac source of emboli. US legs neg for DVT
- For OP tele monitor. No events on monitor
# PFO - follow with cards as OP
PT/OT eval
Medically stable for discharge. Discussed with case management regarding disposition. She made referral to [facility]
DVT - lovenox sq
Code status - full code
Anticipated Discharge: Today
Subjective/Interval History
-
Date of Service: October 20, 2024
Patient is alert and oriented x 3.
He denies any limb weakness or balance issues. Denying any speech impairment.
He scored 12/ 30 on [place] cognitive assessment score when tested by speech therapy. He has history of TBI.
Went over the findings of acute stroke and PFO but he does not seems to grasp or understand his disease processes ie findings or the treatments.
He says he got a son who lives in [place] and when offered to touch base with him he didn't say much.
Objective Data
-
Labs:
Laboratory Results
10/20/24
07:32
WBC 7.7
Hgb 15.1
Hct 42.0
Plt Count 275
Sodium 137
Potassium 4.9
Chloride 104
Carbon Dioxide 24
BUN 17
Creatinine 1.0
Glucose 100 H
Calcium 8.7
Total Bilirubin 1.0
AST 33
ALT 38
Alkaline Phosphatase 55
Vital Signs:
Vital Signs
Temp Pulse Resp BP Pulse Ox
97.8 F 77 18 136/90 97
10/20/24 11:50 10/20/24 11:50 10/20/24 11:50 10/20/24 11:50 10/20/24 11:50
I&O
10/19/24 10/20/24 10/21/24
06:59 06:59 06:59
Intake Total 420 / 420 720 / 720
Balance 420 / 420 720 / 720
Review of Systems
-
Unable to obtain full review of systems at this time due to: Other (cognitive impairment)
Respiratory: Denies Trouble Breathing
Cardiac: Denies Chest Pain or Palpitations
Abdomen/GI: Denies Abdominal Pain, Nausea or Vomiting
Neuro: Denies Headache
Physical Exam
-
General: Comfortable
Respiratory: Non Labored Respirations and Accessory Resp Muscle Use
Cardiac: Regular Rhythm and S1/S2; Negative Tachycardic
Neuro: AO x 3; Negative No Motor Deficits
Psych: Calm
Data Reviewed
-
Labs: Labs Reviewed by me
--- NOTE | 2024-10-20 13:29 | W.PN.NEURO.1 ---
Today's Communication / Plan
-
.
Subjective/Objective
Subjective Data
Date of Service: October 20, 2024
Neurology follow-up note
HPI: This is a 63-year-old man who presented to [facility] on 10/16/2024 and aphasia.
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
hemosiderin deposition.
DALTON(10/19/2024)-evidence of PFO with positive agitated saline contrast bubble study.
Lower extremity ultrasound�no evidence of DVT.
EKG: NSR, QTc Int : 457 ms
PDMP:none
Labs: ESR�14, MCV�97.0, normal sodium, hemoglobin A1c�5.3, LDL�122
MRA head/neck(motion artifact limited)�no high-grade occlusion.
PMH:TBI (2007), L occipital stroke(2010), HTN, DLP, vitamin D deficiency,ABA,
PSH: R neck biopsy, right rotator cuff repair, appendectomy,Hemorrhoidectomy
SH:lives with roommate, does not work, active smoker
FH:mother-laryngeal CA
All:amoxicillin, clavulanic acid
ROS: Limited due to aphasia.
General: Well developed. In no acute distress.
Cardio: Regular rate and rhythm without murmur. Extremities are without cyanosis or edema.
Neuro:
Mental Status: Alert, oriented to name. Moderate to severe nonfluent expressive aphasia. Follows simple requests.
Cranial Nerves: Pupils are equally round and reactive to light. EOMs full. Blink to threat right less than left. No ptosis. No nystagmus. V1-V3 intact to light touch and pinprick bilaterally, symmetric. Face symmetric. Normal hearing AU. The
palate elevated well. SCMs and traps 5/5. Tongue midline. No dysarthria.
Motor: No pronator or leg drift.
Reflexes: Negative Magdaleno's bilaterally.
Sensory: Limited exam due to aphasia
Coordination: No tremors myoclonic movements.
Gait: deferred
Assessment and Plan:
I. Acute left MCA territory stroke. Likely etiology�embolic.
II. Multifactorial encephalopathy (vascular, posttraumatic)
III. 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
IV. History of TBI
V. PFO. Risk of Paradoxical Embolism-4. 38% chance that stroke is due to PFO. 12% risk of 2 year recurrence of stroke/TIA.
-Continue Telemetry monitoring.
-Continue ASA 81 mg QD indefinitely and Plavix 75 mg QD for 21 days.
-Lipitor 40 mg QHS. LDL goal�less than 100.
-Vit b12, nicotine patch
-Cardiology follow-up (Holter, ILR)
-Continue speech therapy.
-DVT prophylaxis.
-Outpatient neurology follow-up
I personally reviewed all radiology and labs along with past medical records pertinent to current medical problems. Total time spent in patient care is 62 minutes.
Thank you for allowing us to participate in the care of this patient. Please do not hesitate to contact us with any questions or c
Objective Data
Vital Signs
Temp Pulse Resp BP Pulse Ox
36.6 C 77 18 136/90 97
10/20/24 11:50 10/20/24 11:50 10/20/24 11:50 10/20/24 11:50 10/20/24 11:50
Lab Results
10/20/24 07:32
10/20/24 07:32
Sodium 137 mmol/L (135-145) 10/20/24 07:32
Potassium 4.9 mmol/L (3.5-5.1) 10/20/24 07:32
BUN 17 mg/dl (9-20) 10/20/24 07:32
Glucose 100 mg/dl (70-99) H 10/20/24 07:32
Calcium 8.7 mg/dl (8.4-10.2) 10/20/24 07:32
LDL Cholesterol, Calc 122 mg/dl 10/17/24 07:45
Ur Buprenorphine Negative (Negative) 10/17/24 01:57
Patient Allergies
amoxicillin [From Augmentin] Allergy (Verified 10/16/24 20:18)
Unknown
clavulanic acid [From Augmentin] Allergy (Verified 10/16/24 20:18)
Unknown
Vital Signs and Labs
-
Vital Signs and Labs:
Vital Signs
Temp Pulse Resp BP Pulse Ox
36.6 C 77 18 136/90 97
10/20/24 11:50 10/20/24 11:50 10/20/24 11:50 10/20/24 11:50 10/20/24 11:50
Lab Results
10/20/24 07:32
10/20/24 07:32
Sodium 137 mmol/L (135-145) 10/20/24 07:32
Potassium 4.9 mmol/L (3.5-5.1) 10/20/24 07:32
BUN 17 mg/dl (9-20) 10/20/24 07:32
Glucose 100 mg/dl (70-99) H 10/20/24 07:32
Calcium 8.7 mg/dl (8.4-10.2) 10/20/24 07:32
LDL Cholesterol, Calc 122 mg/dl 10/17/24 07:45
Ur Buprenorphine Negative (Negative) 10/17/24 01:57
Medications
-
Medications:
Generic Name Dose Route Start Last Admin
Trade Name Freq PRN Reason Stop Dose Admin
Acetaminophen 650 mg 10/17/24 01:12
Acetaminophen 650 Mg Rectal Suppository RECTAL 11/14/24 01:11
Q4HPRN PRN
MCKEON, mild pain, or temp >100.4F
Acetaminophen 650 mg 10/17/24 01:12
Acetaminophen 325 Mg Tablet PO 11/14/24 01:11
Q4HPRN PRN
MCKEON, mild pain, or temp >100.4F
Aspirin 81 mg 10/17/24 08:00 10/20/24 08:39
Aspirin 81 Mg Chewable Tablet PO 11/14/24 07:59 81 mg
DAILY DESTIN Administration
Atorvastatin Calcium 40 mg 10/17/24 18:00 10/19/24 16:44
Atorvastatin (Lipitor) 40 Mg Tablet PO 11/14/24 17:59 40 mg
QPM DESTIN Administration
Clopidogrel Bisulfate 75 mg 10/18/24 08:00 10/20/24 08:39
Clopidogrel 75 Mg Tablet PO 11/07/24 08:01 75 mg
DAILY DESTIN Administration
Enoxaparin Sodium 40 mg 10/17/24 18:00 10/19/24 16:44
Enoxaparin Sodium 40 Mg/0.4 Ml Syringe SC 11/14/24 17:59 40 mg
QPM DESTIN Administration
Sodium Chloride 0 flush 10/17/24 02:00
Sodium Chloride 0.9% (Flush) Syringe IV 11/14/24 01:59
PER PROTOCOL DESTIN
Home Medications
-
Home Medications
No Meds [No Current Medications] 10/17/24
[2024-10-20 14:45] VITALS: BP 133/86; PULSE 64; O2SAT 97
[2024-10-20 15:22] VITALS: BP 138/99
[2024-10-20] MEDS: LIPITOR 40 MG PO (17:23)
[2024-10-20] MEDS: LOVENOX 40 MG SC (17:23)
[2024-10-20 23:27] VITALS: BP 138/84
[2024-10-21 07:30] VITALS: BP 145/83
[2024-10-21] MEDS: PLAVIX 75 MG PO (07:58)
[2024-10-21] MEDS: LOW STRENGTH ASPIRIN 81 MG PO (07:58)
[2024-10-21 08:21] LABS: Hematocrit 42.4 % (39.0-52.0); Hemoglobin 14.7 g/dL (13.0-18.0); Mean Corp Hgb Conc. 34.7 g/dL (33.0-37.0); Mean Corpuscular Volume 98.1 fL (80.0-94.0); Mean Platelet Volume 9.9 fL (7.4-10.4); Platelet Count 274 10^3/uL (130-400); Red Blood Cell Count 4.32 10^6/uL (4.70-6.10); Red Cell Dist. Width 14.5 % (11.5-14.5); White Blood Cell Count 7.5 10^3/uL (4.8-10.8)
[2024-10-21 08:37] LABS: ALT (SGPT) 42 U/L (0-50); AST (SGOT) 34 U/L (17-59); Albumin 3.8 g/dl (3.5-5.0); Alkaline Phosphatase 62 U/L (38-126); Blood Urea Nitrogen 19 mg/dl (9-20); Carbon Dioxide 25 mmol/L (22-30); Chloride 103 mmol/L (98-107); Estimated Creatinine Clearance 71 ml/min; Glucose 94 mg/dl (70-99); Potassium 4.4 mmol/L (3.5-5.1); Sodium 137 mmol/L (135-145); Total Protein 6.9 g/dl (6.3-8.2); eGFR > 60.00
--- NOTE | 2024-10-21 13:25 | W.PN.HOSP.TC ---
Today's Communication/Plan
-
Ongoing dispo efforts
Assessment / Plan
Assessment / Plan
Patient with history of TBI and prior CVA presents to the emergency department with episode of slurred speech and difficulty manipulating objects which are unusual for him. On my examination is speech remains slurred but he had no other focal
neurological deficits. Unclear whether the current finding is chronic or part of the presenting episode. Patient is not on any medications at home and is a very poor historian.
PLAN:
#Acute CVA
#Several scattered small nonhemorrhagic acute/subacute infarcts throughout the left cerebral hemisphere sinus
� Concern for cardioembolic etiology
� Plavix loaded, continue Plavix daily for total of 21 days
� Continue aspirin indefinitely
� Neurology recs noted
� Initiated statin
� Hemoglobin A1c 5.3
� DALTON shows PFO but no cardiac source of emboli. US legs neg for DVT
- For OP tele monitor. No events on monitor
# PFO - follow with cards as OP
PT/OT eval
Medically stable for discharge.
Ongoing dispo efforts
DVT - lovenox sq
Code status - full code
Anticipated Discharge: Today
Subjective/Interval History
-
Date of Service: October 21, 2024
No overnight events.
Today he was cognizant of the fact that he had a stroke. He got confused and thought it was on the right side of the brain.
Denies any limb weakness. No visual impairment. States speech is okay. No obvious aphasia noted.
Objective Data
-
Labs:
Laboratory Results
10/21/24
06:51
WBC 7.5
Hgb 14.7
Hct 42.4
Plt Count 274
Sodium 137
Potassium 4.4
Chloride 103
Carbon Dioxide 25
BUN 19
Creatinine 1.0
Glucose 94
Calcium 9.0
Total Bilirubin 1.0
AST 34
ALT 42
Alkaline Phosphatase 62
Vital Signs:
Vital Signs
Temp Pulse Resp BP Pulse Ox
97.6 F 64 18 145/83 97
10/21/24 07:30 10/21/24 07:30 10/21/24 07:30 10/21/24 07:30 10/21/24 12:16
I&O
10/20/24 10/21/24 10/22/24
06:59 06:59 06:59
Intake Total 720 / 720 960 / 960
Balance 720 / 720 960 / 960
Review of Systems
-
Respiratory: Denies Trouble Breathing
Cardiac: Denies Chest Pain or Palpitations
Abdomen/GI: Denies Abdominal Pain, Nausea or Vomiting
Neuro: Denies Dizzy
Physical Exam
-
General: No Apparent Distress
HEENT: Moist Mucous Membranes
Respiratory: Non Labored Respirations; Negative Accessory Resp Muscle Use
Cardiac: Regular Rhythm and S1/S2
Neuro: Awake, Alert and Oriented; Negative No Motor Deficits
Psych: Calm and Confused; Negative Agitated
[2024-10-21 14:15] VITALS: BP 143/88
[2024-10-21 15:00] VITALS: BP 127/75
--- NOTE | 2024-10-21 15:08 | CM ---
Pt has MA application pending currently. Pt is being recommended for acute rehab at this time.
[facility]. Per Sobeida, she will reach out to pt's prev employer to complete verification form today.
Pt will need to provide September/Oct bank statements as pt disclosed he has been living off of funds from both checking and savings accounts.
CM discussed status w/ pt at bedside and the needed documents. Pt states he has no one or no way to retrieve bank statements. CM asked pt if he has his bank's mobile julia on a phone, pt stated he does not have a phone. CM encouraged pt to call his
bank and ask if his statements can be emailed since he is unable to physically go and request this. CM provided pt the number to [facility] that he vega with.
CM is unsure [facility] will accept w/ MA pending. [facility] hospitalist to order PM&R assessment.
Plan: Acute rehab is being recommended. May have to explore SNF if [facility] unable to accept MA pending
[2024-10-21] MEDS: LIPITOR 40 MG PO (17:17)
[2024-10-21] MEDS: LOVENOX 40 MG SC (17:18)
[2024-10-21 23:26] VITALS: BP 129/86
[2024-10-22 07:00] VITALS: BP 138/86
[2024-10-22] MEDS: PLAVIX 75 MG PO (07:49)
[2024-10-22] MEDS: LOW STRENGTH ASPIRIN 81 MG PO (07:49)
[2024-10-22 08:37] LABS: Hematocrit 41.9 % (39.0-52.0); Hemoglobin 14.7 g/dL (13.0-18.0); Mean Corp Hgb Conc. 35.1 g/dL (33.0-37.0); Mean Corpuscular Hgb 34.4 pg (27.0-31.0); Mean Corpuscular Volume 98.1 fL (80.0-94.0); Mean Platelet Volume 10.3 fL (7.4-10.4); Platelet Count 286 10^3/uL (130-400); Red Blood Cell Count 4.27 10^6/uL (4.70-6.10); Red Cell Dist. Width 14.6 % (11.5-14.5); White Blood Cell Count 7.5 10^3/uL (4.8-10.8)
--- NOTE | 2024-10-22 08:54 | CON.MD ---
Addendum entered and electronically signed by Blayne Pugh MD 10/22/24 13:13:
Sensory:
�� Light touch: Intact in bilateral upper and lower extremities
�� Pinprick:
�� Proprioception:
�� Temperature:�
�
Reflexes:
�� Biceps: 3+ bilaterally
�� Brachioradialis: 3+ bilaterally
�� Triceps: 3+ bilaterally
�� Patellar: 3+ bilaterally
�� Achilles: 3+ bilaterally
�� Babinski: Up going bilaterally
�� Clonus: None
�� Blossom: Present bilaterally�
Cerebellar: Dysmetria/Ataxia: Bilaterally
Original Note:
Consultation - Medical
-
Referring Provider:�Dr. Amaury Heredia
Chief Complaint:�Stroke
�
History of Present Illness:�64-year-old right-handed male with PMH (as below) presented to [facility] on 10/16/2024 with difficulty speaking, tingling in the fingertips, and dropping things. MRI of the brain without contrast noting acute
left MCA territory infarct as well as chronic right frontal, left thalamic, bilateral cerebellar infarcts, severe white matter leukoaraiosis, atrophy, 5 mm right pontine cavernous venous malformation, multiple foci of chronic hemosiderin deposition.
Concern for cardioembolic source. 10/19/2024 DALTON with PFO present and positive agitated saline contrast bubble study. Lower extremity ultrasound negative for DVT. MRA of the head of the neck with no high-grade occlusion. Seen by neurology with
plan for aspirin Plavix for 21 days followed by aspirin indefinitely. Patient not interested in PFO closure at this time and may ultimately choose medical therapy.
�
Past Medical History:�TBI (2007), L occipital stroke(2009), HTN, DLP, vitamin D deficiency, generalized anxiety disorder
Procedure History:�R neck biopsy, right rotator cuff repair, appendectomy, Hemorrhoidectomy
Family History:�Mother with laryngeal cancer
�
Social History:�
Functional Level Premorbidly:�Independent with all activities�
Functional Level Currently:�Min assist ambulate 50 feet x 2 with rolling walker, concern for oropharyngeal dysphagia, dysarthria and severe cognitive communication deficits. Currently taking a regular diet with thin liquids. Supervision grooming
and toileting.
�
Tobacco:�Smoking daily
Alcohol:�Daily
Drug use:�Denies�
�
Lives with:�Roommate
24-hour assistance available:�No
Number of floors:�2
# steps to enter:�6
# steps to second floor: Full flight
Potential First floor set up:�No
Driving:�Yes
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
�
�
Allergies:�
Allergy/AdvReac Type Severity Reaction Status Date / Time
amoxicillin [From Augmentin] Allergy Unknown Verified 10/16/24 20:18
clavulanic acid Allergy Unknown Verified 10/16/24 20:18
[From Augmentin]
�
Review of Systems:�
Constitutional: (x) abNormal _fatigue
Eye: (x) Normal _
Ear/Nose/Throat: (x) Normal _
Respiratory: (x) Normal _
Cardiovascular: (x) Normal _
Gastrointestinal: (x) Normal _
Genitourinary: (x) Normal _
Musculoskeletal: (x) Normal _
Integumentary: (x) Normal _
Neurologic: (x) abNormal _people say that he has had a stroke
Psychiatric: (x) Normal _
Endocrine: (x) Normal _
Hematologic/Lymphatic: (x) Normal _
Allergic/Immunologic: (x) Normal _
�
Medications:�
Active Current Visit Medication List
Category Date Time Status
Acetaminophen [Tylenol/Feverall] Med 10/17/24 01:12 Active
650 mg RECTAL Q4HPRN PRN
Acetaminophen [Tylenol] Med 10/17/24 01:12 Active
650 mg PO Q4HPRN PRN
Aspirin Chewable [Low Strength Aspirin] Med 10/17/24 08:00 Active
81 mg PO DAILY
Atorvastatin [Lipitor] Med 10/17/24 18:00 Active
40 mg PO QPM
Clopidogrel Bisulfate [Plavix] Med 10/18/24 08:00 Active
75 mg PO DAILY
Enoxaparin Sodium [Lovenox] Med 10/17/24 18:00 Active
40 mg SC QPM
Flush (0.9% Sodium Chloride) [Flush (Nss)] Med 10/17/24 02:00 Active
See Dose Instructions IV PER PROTOCOL
�
Vitals:�
Temp Pulse Resp BP Pulse Ox
97.7 F 55 20 129/86 97
10/21/24 23:26 10/21/24 23:26 10/21/24 23:26 10/21/24 23:26 10/21/24 23:26
Height 5 ft 7 in
Actual Weight 83.546 kg
Body Mass Index (BMI) 28.9
�
Physical Exam:�
General Appearance/Observation: Well-developed, well-nourished male in no apparent distress.�
Pain/Comfort Assessment: Denies�
Mood/Affect: Appropriate�
�
Integumentary/Operative Site:�No lesions noted during course of exam
�
Eyes: Conjunctiva/Lids: normal���� Pupils: pupils equal round and reactive to light and Accommodation�
Ears/Nose/Throat: oral mucosa moist,� throat clear.������������ Lips/Teeth/Gums: normal�
Cardiovascular: Heart: regular, no murmur�
Pulses: dorsalis pedis 2+ bilaterally�
Respiratory: Respiratory Effort/Chest Expansion: normal������� Auscultation: Clear to auscultation bilaterally�
Gastrointestinal: abdomen not tender, no distension, normal abdominal bowel sounds
Genitourinary: No Morocho�
Extremities:�Edema: None�Cyanosis: None�Trophic�changes: None
�
Neurology Exam:
Orientation: Alert, Oriented to self, Time, Place. Cannot remember name of president but was able to get correctly with choices
Memory: Impaired
Insight: Impaired
Comprehension: Intact
Two step command: Intact
Cranial Nerves:
�� CNII:�Pupillary light reflex: Intact����Visual Field: Intact
�� CN III, IV, : Extraocular muscles: Intact�
�� CN V:�Facial Sensation�at�Forehead: Intact,�Maxilla: Intact,�Mandible: Intact
�� CN VII:�Facial movement: Symmetric
�� CN VIII:�Hearing: Normal
�� CN IX/X:�Speech & swallow: Dysarthria, mild aphasia�position of Uvula: Midline
�� CN XI:�Shoulder shrug: Symmetric
�� CN XII:�Tongue protrusion: Midline
Sensory:
�� Light touch: Intact in bilateral upper and lower extremities
�� Pinprick:
�� Proprioception:
�� Temperature:�
�
Reflexes:
�� Biceps: 2+ bilaterally
�� Brachioradialis: 2+ bilaterally
�� Triceps: 2+ bilaterally
�� Patellar: 2+ bilaterally
�� Achilles: 2+ bilaterally
�� Babinski: Down going bilaterally
�� Clonus: None
�� Blossom: Negative bilaterally�
Cerebellar: Dysmetria/Ataxia: None�
Musculoskeletal: Motor: (Manual muscle scale 0-5)�
Muscle SA EF WE EE FF FA HF KE DF EHL PF
Right� 5 5 5 5 5 5 5 5 5 5 5
Left 5 5 5 5 5 5 5 5 5 5 5
�
Tone: Normal in all extremities�
Range of Motion: Passively within normal limits in all extremities�
�
Lab Results
Laboratory Data
10/22/24 06:53
10/22/24 06:53
Total Bilirubin 0.8 mg/dl (0.2-1.3) 10/22/24 06:53
AST 30 U/L (17-59) 10/22/24 06:53
ALT 41 U/L (0-50) 10/22/24 06:53
Alkaline Phosphatase 59 U/L (38-126) 10/22/24 06:53
Total Protein 6.7 g/dl (6.3-8.2) 10/22/24 06:53
Albumin 3.8 g/dl (3.5-5.0) 10/22/24 06:53
�
Diagnostic Results:�as per HPI�
�
Assessment
64 y/o M PMH (TBI (2007), L occipital stroke(2010), HTN, DLP, vitamin D deficiency, generalized anxiety disorder) with 10/16/2024 acute left MCA territory infarct with concern for cardioembolic source with PFO present as well as chronic right frontal,
left thalamic, bilateral cerebellar infarcts, severe white matter leukoaraiosis, atrophy, 5 mm right pontine cavernous venous malformation, multiple foci of chronic hemosiderin deposition--- with ADL, ambulatory, and speech/swallow dysfunction.
Plan�
PM&R�PT/OT to increase independence with ADLs, improve balance, coordination, endurance, strength, mobility, community reintegration, decreased burden of care on others and family education.�
�
CVA: Secondary prophylaxis with aspirin and Plavix for 21 days (last dose 11/07/24) followed by aspirin lifelong, statin, and blood pressure control (SBP less than 180 and diastolic less than 100 to participate with therapy for ischemic stroke).
Continue to monitor neurologic status.� Patient not interested in PFO closure at this time and may ultimately choose medical therapy.
Dysphagia: speech, oral care protocol, aspiration precautions.� Currently tolerating regular diet
Dysarthria: speech �
Aphasia: speech �
HTN: Not currently on medication, monitor closely�
HLD: Statin�
Generalized anxiety disorder: Psychology consult.� Monitor mood, medications as needed.�
Skin: monitor for pressure sores/rashes/lesions.�
Pain: acetaminophen or oxycodone as needed.�
Bowel: Monitor bowels all medications.
Bladder: Time void, PVRs, PRN straight cath.�
Alcohol Abuse: Alcohol cessation education, offering of outpatient alcohol abuse program�
Tobacco Abuse: Smoking cessation counseling. Need to find out why smoking whether it is nicotine withdrawal, habit, or oral fixation.�
DVT Prophylaxis: Mechanical and Lovenox
Pulmonary: Incentive spirometry�
Safety: Continue to reinforce assistance with all transfers.�
Code Status:� Full code
Dispo�(date/plan/equipment needs): Home with family care.� Social history reviewed.�
Functional and Medical Goals:�Modified Independent with ADL�s, ambulation, transfers�
Discharge Destination:�Acute inpatient rehabilitation
�
Summary of recommendations:
-�Discharge Destination:�Acute inpatient rehabilitation
CVA: Secondary prophylaxis with aspirin and Plavix for 21 days (last dose 11/07/24) followed by aspirin lifelong, statin, and blood pressure control (SBP less than 180 and diastolic less than 100 to participate with therapy for ischemic stroke).
Continue to monitor neurologic status.� Patient not interested in PFO closure at this time and may ultimately choose medical therapy.
Dysphagia: speech, oral care protocol, aspiration precautions.� Currently tolerating regular diet
Dysarthria: speech �
Aphasia: speech �
�
Thank you for allowing me to care for your patient. Please contact me with any questions or concerns.
[2024-10-22 09:13] LABS: ALT (SGPT) 41 U/L (0-50); AST (SGOT) 30 U/L (17-59); Albumin 3.8 g/dl (3.5-5.0); Alkaline Phosphatase 59 U/L (38-126); Blood Urea Nitrogen 16 mg/dl (9-20); Calcium 8.8 mg/dl (8.4-10.2); Carbon Dioxide 27 mmol/L (22-30); Chloride 103 mmol/L (98-107); Estimated Creatinine Clearance 64 ml/min; Glucose 92 mg/dl (70-99); Potassium 4.5 mmol/L (3.5-5.1); Sodium 137 mmol/L (135-145); Total Bilirubin 0.8 mg/dl (0.2-1.3); Total Protein 6.7 g/dl (6.3-8.2); eGFR > 60.00
[2024-10-22 10:00] VITALS: BP 141/84; PULSE 62
[2024-10-22 15:00] VITALS: BP 137/91
--- NOTE | 2024-10-22 16:09 | W.PN.HOSP.TC ---
Today's Communication/Plan
-
Ongoing disposition efforts
Assessment / Plan
Assessment / Plan
Patient with history of TBI and prior CVA presents to the emergency department with episode of slurred speech and difficulty manipulating objects which are unusual for him. On my examination is speech remains slurred but he had no other focal
neurological deficits. Unclear whether the current finding is chronic or part of the presenting episode. Patient is not on any medications at home and is a very poor historian.
PLAN:
#Acute CVA
#Several scattered small nonhemorrhagic acute/subacute infarcts throughout the left cerebral hemisphere sinus
� Concern for cardioembolic etiology
� Plavix loaded, continue Plavix daily for total of 21 days
� Continue aspirin indefinitely
� Neurology recs noted
� Initiated statin
� Hemoglobin A1c 5.3
� DALTON shows PFO but no cardiac source of emboli. US legs neg for DVT
- For OP tele monitor. No events on monitor
# PFO - follow with cards as OP
PT/OT eval
Medically stable for discharge.
Ongoing dispo efforts
DVT - lovenox sq
Code status - full code
Anticipated Discharge: Within 24 hours
Subjective/Interval History
-
Date of Service: October 22, 2024
No overnight events.
Await placement.
Denies any new symptoms.
Denies any headache or visual disturbances. No speech impairment. Denies any limb weakness but is requiring assistance with ambulation and PT still recommending rehab.
Objective Data
-
Labs:
Laboratory Results
10/22/24
06:53
WBC 7.5
Hgb 14.7
Hct 41.9
Plt Count 286
Sodium 137
Potassium 4.5
Chloride 103
Carbon Dioxide 27
BUN 16
Creatinine 1.1
Glucose 92
Calcium 8.8
Total Bilirubin 0.8
AST 30
ALT 41
Alkaline Phosphatase 59
Vital Signs:
Vital Signs
Temp Pulse Resp BP Pulse Ox
98.4 F 61 20 138/86 95
10/22/24 07:00 10/22/24 07:00 10/22/24 07:00 10/22/24 07:00 10/22/24 07:00
I&O
10/21/24 10/22/24 10/23/24
06:59 06:59 06:59
Intake Total 960 / 960 840 / 840
Output Total 500 / 500
Balance 960 / 960 340 / 340
Review of Systems
-
Respiratory: Denies Trouble Breathing
Cardiac: Denies Chest Pain
Abdomen/GI: Denies Abdominal Pain, Nausea or Vomiting
Neuro: Denies Dizzy
Physical Exam
-
General: Comfortable
Respiratory: Non Labored Respirations; Negative Accessory Resp Muscle Use
Cardiac: Regular Rhythm and S1/S2
GI: Soft
Neuro: Awake, Alert and Oriented; Negative No Motor Deficits
Psych: Calm
Data Reviewed
-
Labs: Labs Reviewed by me
[2024-10-22] MEDS: LIPITOR 40 MG PO (19:08)
[2024-10-22] MEDS: LOVENOX 40 MG SC (19:09)
[2024-10-22 23:39] VITALS: BP 136/85
[2024-10-23 03:00] VITALS: BP 135/87
[2024-10-23 08:06] VITALS: BP 125/95
[2024-10-23] MEDS: LOW STRENGTH ASPIRIN 81 MG PO (08:45)
[2024-10-23] MEDS: PLAVIX 75 MG PO (08:45)
[2024-10-23 11:38] VITALS: BP 135/89; PULSE 62
[2024-10-23 15:00] VITALS: BP 135/87
[2024-10-23 15:30] VITALS: BP 135/87; PULSE 62; O2SAT 98
--- NOTE | 2024-10-23 16:25 | W.PN.HOSP.TC ---
Today's Communication/Plan
-
Ongoing disposition efforts
Assessment / Plan
Assessment / Plan
Patient with history of TBI and prior CVA presents to the emergency department with episode of slurred speech and difficulty manipulating objects which are unusual for him. On my examination is speech remains slurred but he had no other focal
neurological deficits. Unclear whether the current finding is chronic or part of the presenting episode. Patient is not on any medications at home and is a very poor historian.
PLAN:
#Acute CVA
#Several scattered small nonhemorrhagic acute/subacute infarcts throughout the left cerebral hemisphere sinus
� Concern for cardioembolic etiology
� Plavix loaded, continue Plavix daily for total of 21 days
� Continue aspirin indefinitely
� Neurology recs noted
� Initiated statin
� Hemoglobin A1c 5.3
� DALTON shows PFO but no cardiac source of emboli. US legs neg for DVT
- For OP tele monitor. No events on monitor
# PFO - follow with cards as OP
PT/OT eval
Medically stable for discharge.
Ongoing dispo efforts
DVT - lovenox sq
Code status - full code
Anticipated Discharge: Within 24 hours
Subjective/Interval History
-
Date of Service: October 23, 2024
No overnight events. Await placement
Objective Data
-
Vital Signs:
Vital Signs
Temp Pulse Resp BP Pulse Ox
97.4 F 65 16 125/95 96
10/23/24 08:06 10/23/24 08:06 10/23/24 08:06 10/23/24 08:06 10/23/24 08:06
I&O
10/22/24 10/23/24 10/24/24
06:59 06:59 06:59
Intake Total 840 / 840 480 / 480
Output Total 500 / 500
Balance 340 / 340 480 / 480
Review of Systems
-
Respiratory: Denies Trouble Breathing
Cardiac: Denies Chest Pain
Abdomen/GI: Denies Abdominal Pain, Nausea or Vomiting
Neuro: Denies Dizzy or Headache
Physical Exam
-
General: Comfortable
Respiratory: Non Labored Respirations; Negative Accessory Resp Muscle Use
Cardiac: Regular Rhythm and S1/S2
Neuro: AO x 3; Negative No Motor Deficits
Psych: Calm
[2024-10-23] MEDS: LOVENOX 40 MG SC (18:44)
[2024-10-23] MEDS: LIPITOR 40 MG PO (18:44)
[2024-10-23 22:41] VITALS: BP 143/94
[2024-10-24 07:00] VITALS: BP 131/89
--- NOTE | 2024-10-24 09:03 | W.PN.HOSP.TC ---
Today's Communication/Plan
-
Ongoing disposition efforts
Assessment / Plan
Assessment / Plan
Patient with history of TBI and prior CVA presents to the emergency department with episode of slurred speech and difficulty manipulating objects which are unusual for him. On my examination is speech remains slurred but he had no other focal
neurological deficits. Unclear whether the current finding is chronic or part of the presenting episode. Patient is not on any medications at home and is a very poor historian.
PLAN:
#Acute CVA
#Several scattered small nonhemorrhagic acute/subacute infarcts throughout the left cerebral hemisphere sinus
� Concern for cardioembolic etiology
� Plavix loaded, continue Plavix daily for total of 21 days
� Continue aspirin indefinitely
� Neurology recs noted
� Initiated statin
� Hemoglobin A1c 5.3
� DALTON shows PFO but no cardiac source of emboli. US legs neg for DVT
- For OP tele monitor. No events on monitor
# PFO - follow with cards as OP
PT/OT eval
Medically stable for discharge.
Discussed with case management today-still ongoing disposition efforts
DVT - lovenox sq
Code status - full code
Anticipated Discharge: 24 - 48 hours
Subjective/Interval History
-
Date of Service: October 24, 2024
No overnight events. Voices no specific complaint.
Objective Data
-
Vital Signs:
Vital Signs
Temp Pulse Resp BP Pulse Ox
97.9 F 65 18 131/89 97
10/24/24 07:00 10/24/24 07:00 10/24/24 07:00 10/24/24 07:00 10/24/24 07:00
I&O
10/23/24 10/24/24 10/25/24
06:59 06:59 06:59
Intake Total 480 / 480 1080 / 1080
Output Total 600 / 600
Balance 480 / 480 480 / 480
Review of Systems
-
Respiratory: Denies Trouble Breathing
Cardiac: Denies Chest Pain
Abdomen/GI: Denies Abdominal Pain, Nausea or Vomiting
Neuro: Denies Dizzy or Headache
Physical Exam
-
General: Comfortable
Respiratory: Non Labored Respirations; Negative Accessory Resp Muscle Use
Cardiac: Regular Rhythm and S1/S2; Negative Tachycardic
GI: Soft
Neuro: Awake, Alert and Oriented (Place and person)
Psych: Calm
[2024-10-24] MEDS: PLAVIX 75 MG PO (09:22)
[2024-10-24] MEDS: LOW STRENGTH ASPIRIN 81 MG PO (09:22)
[2024-10-24 11:25] VITALS: BP 133/101; PULSE 107
[2024-10-24 15:47] VITALS: BP 129/78
[2024-10-24] MEDS: LOVENOX 40 MG SC (16:37)
[2024-10-24] MEDS: LIPITOR 40 MG PO (16:37)
[2024-10-24 23:13] VITALS: BP 150/89
[2024-10-25 06:42] VITALS: BP 119/85
--- NOTE | 2024-10-25 09:29 | W.PN.HOSP.TC ---
Today's Communication/Plan
-
Ongoing disposition efforts
Assessment / Plan
Assessment / Plan
Patient with history of TBI and prior CVA presents to the emergency department with episode of slurred speech and difficulty manipulating objects which are unusual for him. On my examination is speech remains slurred but he had no other focal
neurological deficits. Unclear whether the current finding is chronic or part of the presenting episode. Patient is not on any medications at home and is a very poor historian.
PLAN:
#Acute CVA
#Several scattered small nonhemorrhagic acute/subacute infarcts throughout the left cerebral hemisphere sinus
� Concern for cardioembolic etiology
� Plavix loaded, continue Plavix daily for total of 21 days
� Continue aspirin indefinitely
� Neurology recs noted
� Initiated statin
� Hemoglobin A1c 5.3
� DALTON shows PFO but no cardiac source of emboli. US legs neg for DVT
- For OP tele monitor.
# PFO - follow with cards as OP
PT/OT eval
Medically stable for discharge.
DVT - lovenox sq
Code status - full code
Anticipated Discharge: Within 24 hours
Subjective/Interval History
-
Date of Service: October 25, 2024
No overnight events. Voicing no new specific complaints.
Denies headache.
Wants to get out of here.
Objective Data
-
Vital Signs:
Vital Signs
Temp Pulse Resp BP Pulse Ox
98.0 F 62 16 119/85 96
10/25/24 06:42 10/25/24 06:42 10/25/24 06:42 10/25/24 06:42 10/25/24 06:42
I&O
10/24/24 10/25/24 10/26/24
06:59 06:59 06:59
Intake Total 1080 / 1080 720 / 720
Output Total 600 / 600
Balance 480 / 480 720 / 720
Review of Systems
-
Respiratory: Denies Trouble Breathing
Cardiac: Denies Chest Pain
Abdomen/GI: Denies Abdominal Pain, Nausea or Vomiting
Physical Exam
-
General: Comfortable
Respiratory: Non Labored Respirations; Negative Accessory Resp Muscle Use
Cardiac: Regular Rhythm and S1/S2
Neuro: Awake, Alert, Oriented (Place and person) and No Motor Deficits
Psych: Calm
[2024-10-25] MEDS: PLAVIX 75 MG PO (09:43)
[2024-10-25] MEDS: LOW STRENGTH ASPIRIN 81 MG PO (09:44)
[2024-10-25 11:05] VITALS: BP 134/99; PULSE 83; O2SAT 97
[2024-10-25 15:07] VITALS: BP 135/91
[2024-10-25] MEDS: LIPITOR 40 MG PO (17:18)
[2024-10-25] MEDS: LOVENOX 40 MG SC (17:18)
[2024-10-25 23:30] VITALS: BP 135/90
[2024-10-26 07:13] VITALS: BP 145/93
[2024-10-26] MEDS: PLAVIX 75 MG PO (08:41)
[2024-10-26] MEDS: LOW STRENGTH ASPIRIN 81 MG PO (08:41)
--- NOTE | 2024-10-26 13:40 | CM ---
Left message w/ Sobeida/[facility] to get update on pt's MA application.
CM discussed w/ pt the possible need to explore SNF as [facility] would not be able to accept him w/ MA pending unfortunately. Pt agreeable to explore SNF who is willing to accept him w/ his application pending.
CM spoke w/ Loulou/admissions from [facility] and [facility]. Per Loulou, facilities can accept pt w/ MA pending but will require a financial review to see if he qualifies for MA dustin that can be offered.
Referrals completed in [facility], pt agreeable to financial review and plan for SNF now.
Plan: SNF pending accepting facility and financial review
[2024-10-26 13:46] VITALS: BP 149/106; PULSE 86
[2024-10-26 15:08] VITALS: BP 176/20
--- NOTE | 2024-10-26 16:38 | W.PN.HOSP.TC ---
Today's Communication/Plan
-
Medically stable for discharge
Case management made aware
Assessment / Plan
Assessment / Plan
63-year-old man who presented to [place] on 10/16/2024 and aphasia.
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
hemosiderin deposition.
DALTON-10/19/24- PFO with positive agitated saline contrast bubble study.
Lower extremity ultrasound�no evidence of DVT.
CVS: S1-S2 normal
Chest: CTA B/L
Abdomen: Soft, NT / Bowel sounds present
Extremities: No edema, normal pulses
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
#Acute CVA
Several scattered small nonhemorrhagic acute/subacute infarcts throughout the left cerebral hemisphere sinus� Concern for cardioembolic etiology
Continue Plavix for total of 21 days and aspirin indefinitely
Statin started
Hemoglobin A1c 5.3
DALTON shows PFO but no cardiac source of emboli. Ultrasound legs negative for DVT
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
# [id number] with cardiology as outpatient
# Smoker-cessation counseling
# History of tracheostomy and PEG tube for prior head injury
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
# DVT prophylaxis-Lovenox
# Full code
Anticipated Discharge: Within 24 hours
Subjective/Interval History
-
Date of Service: October 26, 2024
Objective Data
-
Vital Signs:
Vital Signs
Temp Pulse Resp BP Pulse Ox
98.7 F 122 20 176/20 98
10/26/24 15:08 10/26/24 15:08 10/26/24 15:08 10/26/24 15:08 10/26/24 15:08
I&O
10/25/24 10/26/24 10/27/24
06:59 06:59 06:59
Intake Total 720 / 720 720 / 720
Balance 720 / 720 720 / 720
[2024-10-26] MEDS: LOVENOX 40 MG SC (18:00)
[2024-10-26] MEDS: LIPITOR 40 MG PO (18:00)
[2024-10-26 23:31] VITALS: BP 116/82
[2024-10-27 07:30] VITALS: BP 128/75
[2024-10-27 08:57] LABS: Hemoglobin 16.3 g/dL (13.0-18.0); Mean Corp Hgb Conc. 35.4 g/dL (33.0-37.0); Mean Corpuscular Hgb 34.3 pg (27.0-31.0); Mean Corpuscular Volume 96.8 fL (80.0-94.0); Mean Platelet Volume 9.7 fL (7.4-10.4); Platelet Count 320 10^3/uL (130-400); Red Blood Cell Count 4.75 10^6/uL (4.70-6.10); Red Cell Dist. Width 13.7 % (11.5-14.5); White Blood Cell Count 10.7 10^3/uL (4.8-10.8)
[2024-10-27] MEDS: LOW STRENGTH ASPIRIN 81 MG PO (09:09)
[2024-10-27] MEDS: PLAVIX 75 MG PO (09:09)
[2024-10-27 09:46] LABS: Blood Urea Nitrogen 23 mg/dl (9-20); Calcium 9.3 mg/dl (8.4-10.2); Carbon Dioxide 20 mmol/L (22-30); Chloride 101 mmol/L (98-107); Estimated Creatinine Clearance 59 ml/min; Glucose 133 mg/dl (70-99); Potassium 4.1 mmol/L (3.5-5.1); Sodium 135 mmol/L (135-145); eGFR > 60.00
[2024-10-27 11:25] LABS: TSH 1.24 uIU/ml (0.47-4.68)
[2024-10-27] MEDS: NSS 1000 IV (11:59)
[2024-10-27 12:39] VITALS: BP 130/95; PULSE 113
--- NOTE | 2024-10-27 14:13 | W.PN.HOSP.TC ---
Addendum entered and electronically signed by Kezia Macias MD 10/27/24 14:33:
Notified primary contact Gil. Updated regarding patient's condition
Per Gil patient is not in touch with the son Behzad Alvarenga for past 20 years
Original Note:
Today's Communication/Plan
-
Check neurovirus
Follow heart rate
Assessment / Plan
Assessment / Plan
63-year-old man who presented to [place] on 10/16/2024 and aphasia.
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
hemosiderin deposition.
DALTON-10/19/24- PFO with positive agitated saline contrast bubble study.
Lower extremity ultrasound�no evidence of DVT.
CVS: S1-S2 normal
Chest: CTA B/L
Abdomen: Soft, NT / Bowel sounds present
Extremities: No edema, normal pulses
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
# Vomiting and diarrhea-check norovirus
# Tachycardia-normal TSH likely secondary to volume depletion from vomiting and diarrhea. Monitor on telemetry. IV fluids ordered.
EKG [facility].
#Acute CVA
Several scattered small nonhemorrhagic acute/subacute infarcts throughout the left cerebral hemisphere sinus� Concern for cardioembolic etiology
Continue Plavix for total of 21 days and aspirin indefinitely
Statin started
Hemoglobin A1c 5.3
DALTON shows PFO but no cardiac source of emboli. Ultrasound legs negative for DVT
Outpatient case monitor
# [id number] with cardiology as outpatient
# Smoker-cessation counseling
# History of tracheostomy and PEG tube for prior head injury
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
# DVT prophylaxis-Lovenox
# Full code
Anticipated Discharge: Within 24 hours
Subjective/Interval History
-
Date of Service: October 27, 2024
Objective Data
-
Labs:
Laboratory Results
10/27/24
08:43
WBC 10.7
Hgb 16.3
Hct 46.0
Plt Count 320
Sodium 135
Potassium 4.1
Chloride 101
Carbon Dioxide 20 L
BUN 23 H
Creatinine 1.2
Glucose 133 H
Calcium 9.3
Vital Signs:
Vital Signs
Temp Pulse Resp BP Pulse Ox
98.3 F 132 18 128/75 96
10/27/24 07:30 10/27/24 07:30 10/27/24 07:30 10/27/24 07:30 10/27/24 09:00
I&O
10/26/24 10/27/24 10/28/24
06:59 06:59 06:59
Intake Total 720 / 720 960 / 960
Balance 720 / 720 960 / 960
[2024-10-27 15:01] LABS: Magnesium 2.1 mg/dl (1.6-2.3)
[2024-10-27 15:30] VITALS: BP 109/75
[2024-10-27] MEDS: LOVENOX 40 MG SC (17:14)
[2024-10-27] MEDS: LIPITOR 40 MG PO (17:14)
[2024-10-27 19:49] VITALS: BP 133/95
[2024-10-27 23:09] VITALS: BP 125/91
[2024-10-28] VITALS (7 sets, daily range): BP systolic 112–161; BP diastolic 76–94; PULSE 67
[2024-10-28] MEDS: LOW STRENGTH ASPIRIN 81 MG PO (10:10)
[2024-10-28] MEDS: PLAVIX 75 MG PO (10:10)
--- NOTE | 2024-10-28 15:43 | W.PN.HOSP.TC ---
Today's Communication/Plan
-
medically stable for discharge
Assessment / Plan
Assessment / Plan
63-year-old man who presented to [place] on 10/16/2024 and aphasia.
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
hemosiderin deposition.
DALTON-10/19/24- PFO with positive agitated saline contrast bubble study.
Lower extremity ultrasound�no evidence of DVT.
CVS: S1-S2 normal
Chest: CTA B/L
Abdomen: Soft, NT / Bowel sounds present
Extremities: No edema, normal pulses
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
# Vomiting and diarrhea-resolved. No further episodes of diarrhea
# Tachycardia-normal TSH likely secondary to volume depletion from vomiting and diarrhea.
EKG [facility]
Heart rate improved with IV fluids
#Acute CVA
Several scattered small nonhemorrhagic acute/subacute infarcts throughout the left cerebral hemisphere sinus� Concern for cardioembolic etiology
Continue Plavix for total of 21 days and aspirin indefinitely
Statin started
Hemoglobin A1c 5.3
DALTON shows PFO but no cardiac source of emboli. Ultrasound legs negative for DVT
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
# [id number]-ly with cardiology as outpatient
# Smoker-cessation counseling
# History of tracheostomy and PEG tube for prior head injury
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
# DVT prophylaxis-Lovenox
# Full code
Discussed with case management
Anticipated Discharge: Within 24 hours
Subjective/Interval History
-
Date of Service: October 28, 2024
Objective Data
-
Vital Signs:
Vital Signs
Temp Pulse Resp BP Pulse Ox
98.9 F 67 20 161/76 96
10/28/24 06:46 10/28/24 12:15 10/28/24 12:15 10/28/24 12:15 10/28/24 09:00
I&O
10/27/24 10/28/24 10/29/24
06:59 06:59 06:59
Intake Total 960 / 960 840 / 840
Balance 960 / 960 840 / 840
--- NOTE | 2024-10-28 16:17 | CM ---
Chart reviewed. Pt continues to be recommended for rehab.
[facility] unable to accept pt w/ MA pending status.
CM cont efforts to assist [facility] w/ obtaining needed documents for application to be considered for SNF
[2024-10-28] MEDS: LOVENOX 40 MG SC (17:54)
[2024-10-28] MEDS: LIPITOR 40 MG PO (17:54)
[2024-10-29] VITALS (7 sets, daily range): BP systolic 120–147; BP diastolic 74–96; PULSE 73
[2024-10-29] MEDS: LOW STRENGTH ASPIRIN 81 MG PO (08:27)
[2024-10-29] MEDS: PLAVIX 75 MG PO (08:27)
--- NOTE | 2024-10-29 14:58 | W.PN.HOSP.TC ---
Today's Communication/Plan
-
medically stable for discharge
Assessment / Plan
Assessment / Plan
63-year-old man who presented to [place] on 10/16/2024 and aphasia.
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
hemosiderin deposition.
DALTON-10/19/24- PFO with positive agitated saline contrast bubble study.
Lower extremity ultrasound�no evidence of DVT.
CVS: S1-S2 normal
Chest: CTA B/L
Abdomen: Soft, NT / Bowel sounds present
Extremities: No edema, normal pulses
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
# Vomiting and diarrhea-resolved. No further episodes of diarrhea
# Tachycardia-normal TSH likely secondary to volume depletion from vomiting and diarrhea.
EKG [facility]
Heart rate improved with IV fluids
#Acute CVA
Several scattered small nonhemorrhagic acute/subacute infarcts throughout the left cerebral hemisphere sinus� Concern for cardioembolic etiology
Continue Plavix for total of 21 days and aspirin indefinitely
Statin started
Hemoglobin A1c 5.3
DALTON shows PFO but no cardiac source of emboli. Ultrasound legs negative for DVT
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
# [id number] with cardiology as outpatient
# Smoker-cessation counseling
# History of tracheostomy and PEG tube for prior head injury
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
# DVT prophylaxis-Lovenox
# Full code
Discussed with case management at bed side
Anticipated Discharge: Within 24 hours
Subjective/Interval History
-
Date of Service: October 29, 2024
Objective Data
-
Vital Signs:
Vital Signs
Temp Pulse Resp BP Pulse Ox
97.8 F 105 18 125/96 96
10/29/24 11:23 10/29/24 11:23 10/29/24 11:23 10/29/24 11:23 10/29/24 11:23
I&O
10/28/24 10/29/24 10/30/24
06:59 06:59 06:59
Intake Total 840 / 840 840 / 840
Balance 840 / 840 840 / 840
--- NOTE | 2024-10-29 15:29 | CM ---
Spoke w/ pt's friend Will in additional effort to gain information on pt's family and possible assistance in d/c planning.
Per Will, pt has a son in [place] and is due to come to [place] the end of the month to assist w/ pt's care/needs. Will stated he has been updating pt's son frequently since pt has been in the hospital. discussed efforts in obtaining pt's bank statements
to support [facility] in Medicaid application as well as the inability to place pt in SNF due to lack of funding. Will stated he has access to pt's bank statements as they get mailed to the house. Will confirmed he has September statement available to
send to CM via email. Will stated pt receives social security that may not qualify him for Medicaid, stating he received a back pay amount from July and August. Will also shared that pt has been needing to take money from his snf
prematurely as well. provided email and will await email to share w/ Sobeida/[facility].
Updated CM director and hospitalist
[2024-10-29] MEDS: LOVENOX 40 MG SC (17:43)
[2024-10-29] MEDS: LIPITOR 40 MG PO (17:43)
[2024-10-30 03:48] VITALS: BP 132/83
[2024-10-30 07:00] VITALS: BP 125/72
[2024-10-30] MEDS: LOW STRENGTH ASPIRIN 81 MG PO (08:15)
[2024-10-30] MEDS: PLAVIX 75 MG PO (08:16)
[2024-10-30 09:26] LABS: Blood Urea Nitrogen 15 mg/dl (9-20); Calcium 8.6 mg/dl (8.4-10.2); Carbon Dioxide 20 mmol/L (22-30); Chloride 104 mmol/L (98-107); Estimated Creatinine Clearance 71 ml/min; Glucose 88 mg/dl (70-99); Potassium 4.4 mmol/L (3.5-5.1); Sodium 134 mmol/L (135-145); eGFR > 60.00
[2024-10-30 11:00] VITALS: BP 126/84
--- NOTE | 2024-10-30 13:18 | W.PN.HOSP.TC ---
Today's Communication/Plan
-
medically stable for discharge
Assessment / Plan
Assessment / Plan
63-year-old man who presented to [place] on 10/16/2024 and aphasia.
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
hemosiderin deposition.
DALTON-10/19/24- PFO with positive agitated saline contrast bubble study.
Lower extremity ultrasound�no evidence of DVT.
CVS: S1-S2 normal
Chest: CTA B/L
Abdomen: Soft, NT / Bowel sounds present
Extremities: No edema, normal pulses
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
# Vomiting and diarrhea-resolved. No further episodes of diarrhea
# Tachycardia-normal TSH likely secondary to volume depletion from vomiting and diarrhea.
EKG [facility]
Heart rate improved with IV fluids
#Acute CVA
Several scattered small nonhemorrhagic acute/subacute infarcts throughout the left cerebral hemisphere sinus� Concern for cardioembolic etiology
Continue Plavix for total of 21 days and aspirin indefinitely
Statin started
Hemoglobin A1c 5.3
DALTON shows PFO but no cardiac source of emboli. Ultrasound legs negative for DVT
Outpatient monitoring coordinator
# [id number] with cardiology as outpatient
# Smoker-cessation counseling
# History of tracheostomy and PEG tube for prior head injury
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
# DVT prophylaxis-Lovenox
# Full code
Discussed with case management
Anticipated Discharge: Within 24 hours
Subjective/Interval History
-
Date of Service: October 30, 2024
Objective Data
-
Labs:
Laboratory Results
10/30/24
08:19
Sodium 134 L
Potassium 4.4
Chloride 104
Carbon Dioxide 20 L
BUN 15
Creatinine 1.0
Glucose 88
Calcium 8.6
Vital Signs:
Vital Signs
Temp Pulse Resp BP Pulse Ox
98.2 F 71 18 126/84 100
10/30/24 11:00 10/30/24 11:00 10/30/24 11:00 10/30/24 11:00 10/30/24 11:00
I&O
10/29/24 10/30/24 10/31/24
06:59 06:59 06:59
Intake Total 840 / 840 480 / 480
Balance 840 / 840 480 / 480
[2024-10-30 15:00] VITALS: BP 128/83
[2024-10-30] MEDS: LIPITOR 40 MG PO (17:11)
[2024-10-30] MEDS: LOVENOX 40 MG SC (17:11)
[2024-10-30 19:00] VITALS: BP 124/83
[2024-10-30 23:00] VITALS: BP 127/82
[2024-10-31 03:00] VITALS: BP 110/72
--- NOTE | 2024-10-31 05:59 | W.PN.HOSP.TC ---
Today's Communication/Plan
-
Medically stable for discharge pending placement/insurance
Assessment / Plan
Assessment / Plan
Physical Exam
General: no acute distress appears comfortable at this time
HEENT: Normocephalic Atraumatic moist oral mucosa
CVS: S1-S2 NSR no murmurs rubs gallops
Chest: CTA B/L
Abdomen: Soft, NT / Bowel sounds present
Extremities: No edema, normal pulses
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
Psych: Calm
64M hx TBI uninsured tobacco use here for CVA.
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
hemosiderin deposition.
DALTON-10/19/24- PFO with positive agitated saline contrast bubble study.
Lower extremity ultrasound�no evidence of DVT.
# Vomiting and diarrhea-resolved. No further episodes of diarrhea
# Tachycardia-normal TSH likely secondary to volume depletion from vomiting and diarrhea.
EKG [facility]
Heart rate improved with IV fluids
resolved
ok to dc vehicle monitor technician
#Acute CVA
Several scattered small nonhemorrhagic acute/subacute infarcts throughout the left cerebral hemisphere sinus� Concern for cardioembolic etiology
Continue Plavix for total of 21 days and aspirin indefinitely
Statin started
Hemoglobin A1c 5.3
DALTON shows PFO but no cardiac source of emboli. Ultrasound legs negative for DVT
14 day Medilynx monitor placed by cardio 10/20/24
# [id number] with cardiology as outpatient
# Smoker-cessation counseling
# History of tracheostomy and PEG tube for prior head injury
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
# DVT prophylaxis-Lovenox
# Full code
Medically stable for discharge pending placement/insurance
I spent a total of 35 minutes with the patient or on the floor. More than 50% of this time involved counseling and coordination of care.
Anticipated Discharge: Within 24 hours
Subjective/Interval History
-
Date of Service: October 31, 2024
No acute distress sitting up comfortably in chair. Overall reports feeling well. Denies new acute issues at this time. AOx3
Objective Data
-
Vital Signs:
Vital Signs
Temp Pulse Resp BP Pulse Ox
98.5 F 75 16 110/72 96
10/31/24 03:00 10/31/24 03:00 10/31/24 03:00 10/31/24 03:00 10/31/24 03:00
I&O
10/29/24 10/30/24 10/31/24
06:59 06:59 06:59
Intake Total 840 / 840 480 / 480 1200 / 1200
Balance 840 / 840 480 / 480 1200 / 1200
[2024-10-31 07:22] VITALS: BP 116/71
[2024-10-31] MEDS: PLAVIX 75 MG PO (08:52)
[2024-10-31] MEDS: LOW STRENGTH ASPIRIN 81 MG PO (08:52)
[2024-10-31 11:20] VITALS: BP 121/78
[2024-10-31 15:12] VITALS: BP 135/81
[2024-10-31 16:34] VITALS: BP 144/93; BP 149/101; PULSE 71; O2SAT 98
[2024-10-31] MEDS: LOVENOX 40 MG SC (17:57)
[2024-10-31] MEDS: LIPITOR 40 MG PO (17:57)
[2024-10-31 23:42] VITALS: BP 123/73
--- NOTE | 2024-11-01 06:23 | W.PN.HOSP.TC ---
Today's Communication/Plan
-
Medically stable for discharge pending placement/insurance
Assessment / Plan
Assessment / Plan
Physical Exam
General: no acute distress appears comfortable at this time
HEENT: Normocephalic Atraumatic moist oral mucosa
CVS: S1-S2 NSR no murmurs rubs gallops
Chest: CTA B/L
Abdomen: Soft, NT / Bowel sounds present
Extremities: No edema, normal pulses
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
Psych: Calm
64M hx TBI uninsured tobacco use here for CVA.
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
hemosiderin deposition.
DALTON-10/19/24- PFO with positive agitated saline contrast bubble study.
Lower extremity ultrasound�no evidence of DVT.
# Vomiting and diarrhea-resolved. No further episodes of diarrhea
# Tachycardia-normal TSH likely secondary to volume depletion from vomiting and diarrhea.
EKG [facility]
Heart rate improved with IV fluids
resolved
ok to dc telemetry, patient started on Medilynx monitor as below
#Acute CVA
Several scattered small nonhemorrhagic acute/subacute infarcts throughout the left cerebral hemisphere sinus� Concern for cardioembolic etiology
Continue Plavix for total of 21 days and aspirin indefinitely
Statin started
Hemoglobin A1c 5.3
DALTON shows PFO but no cardiac source of emboli. Ultrasound legs negative for DVT
14 day Medilynx monitor placed by cardio 10/20/24
# [id number] with cardiology as outpatient
# Smoker-cessation counseling
# History of tracheostomy and PEG tube for prior head injury
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
# DVT prophylaxis-Lovenox
# Full code
PT/OT appreciated Acute vs SNF rehab
Medically stable for discharge pending placement/insurance
I spent a total of 35 minutes with the patient or on the floor. More than 50% of this time involved counseling and coordination of care.
Anticipated Discharge: Within 24 hours
Subjective/Interval History
-
Date of Service: November 01, 2024
no acute distress. appears comfortable at this time. Working with PT/OT
Objective Data
-
Vital Signs:
Vital Signs
Temp Pulse Resp BP Pulse Ox
98.3 F 58 18 123/73 96
10/31/24 23:42 10/31/24 23:42 10/31/24 23:42 10/31/24 23:42 10/31/24 23:42
I&O
10/30/24 10/31/24 11/01/24
06:59 06:59 06:59
Intake Total 480 / 480 1340 / 1340 1025 / 1025
Output Total 200 / 200
Balance 480 / 480 1140 / 1140 1025 / 1025
[2024-11-01 07:10] VITALS: BP 132/82
[2024-11-01] MEDS: PLAVIX 75 MG PO (09:19)
[2024-11-01] MEDS: LOW STRENGTH ASPIRIN 81 MG PO (09:20)
[2024-11-01 14:13] VITALS: BP 140/89; PULSE 67; O2SAT 97
[2024-11-01 15:30] VITALS: BP 122/77
[2024-11-01] MEDS: LOVENOX 40 MG SC (17:55)
[2024-11-01] MEDS: LIPITOR 40 MG PO (17:55)
[2024-11-01 23:00] VITALS: BP 125/83
--- NOTE | 2024-11-02 06:22 | W.PN.HOSP.TC ---
Today's Communication/Plan
-
Medically stable for discharge pending placement/insurance
Assessment / Plan
Assessment / Plan
Physical Exam
General: no acute distress appears comfortable at this time
HEENT: Normocephalic Atraumatic moist oral mucosa
CVS: S1-S2 NSR no murmurs rubs gallops
Chest: CTA B/L
Abdomen: Soft, NT / Bowel sounds present
Extremities: No edema, normal pulses
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
Psych: Calm
64M hx TBI uninsured tobacco use here for CVA.
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
hemosiderin deposition.
DALTON-10/19/24- PFO with positive agitated saline contrast bubble study.
Lower extremity ultrasound�no evidence of DVT.
# Vomiting and diarrhea-resolved. No further episodes of diarrhea
# Tachycardia-normal TSH likely secondary to volume depletion from vomiting and diarrhea.
EKG [facility].
Heart rate improved with IV fluids
resolved
ok to dc telemetry, patient started on Medilynx monitor as below
#Acute CVA
Several scattered small nonhemorrhagic acute/subacute infarcts throughout the left cerebral hemisphere sinus� Concern for cardioembolic etiology
Continue Plavix for total of 21 days and aspirin indefinitely
Statin started
Hemoglobin A1c 5.3
DALTON shows PFO but no cardiac source of emboli. Ultrasound legs negative for DVT
14 day Medilynx monitor placed by cardio 10/20/24
# [id number]-[id number]-hp with cardiology as outpatient
# Smoker-cessation counseling
# History of tracheostomy and PEG tube for prior head injury
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
# DVT prophylaxis-Lovenox
# Full code
PT/OT appreciated Acute vs SNF rehab
Medically stable for discharge pending placement/insurance
I spent a total of 35 minutes with the patient or on the floor. More than 50% of this time involved counseling and coordination of care.
Anticipated Discharge: Within 24 hours
Subjective/Interval History
-
Date of Service: November 02, 2024
no acute distress, appears comfortable. Denies new acute issues.
Objective Data
-
Vital Signs:
Vital Signs
Temp Pulse Resp BP Pulse Ox
98.1 F 62 16 125/83 96
11/01/24 23:00 11/01/24 23:00 11/01/24 23:00 11/01/24 23:00 11/01/24 23:00
I&O
10/31/24 11/01/24 11/02/24
06:59 06:59 06:59
Intake Total 1340 / 1340 1265 / 1265 960 / 960
Output Total 200 / 200 400 / 400
Balance 1140 / 1140 865 / 865 960 / 960
[2024-11-02 07:29] VITALS: BP 131/81
[2024-11-02] MEDS: LOW STRENGTH ASPIRIN 81 MG PO (08:49)
[2024-11-02] MEDS: PLAVIX 75 MG PO (08:49)
[2024-11-02 15:17] VITALS: BP 140/85
[2024-11-02] MEDS: LOVENOX 40 MG SC (17:54)
[2024-11-02] MEDS: LIPITOR 40 MG PO (17:55)
[2024-11-02 22:58] VITALS: BP 123/84
--- NOTE | 2024-11-03 07:25 | W.PN.HOSP.TC ---
Today's Communication/Plan
-
Medically stable for discharge pending placement/insurance
Assessment / Plan
Assessment / Plan
Physical Exam
General: no acute distress appears comfortable at this time
HEENT: Normocephalic Atraumatic moist oral mucosa
CVS: S1-S2 NSR no murmurs rubs gallops
Chest: CTA B/L
Abdomen: Soft, NT / Bowel sounds present
Extremities: No edema, normal pulses
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
Psych: Calm
64M hx TBI uninsured tobacco use here for CVA.
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
hemosiderin deposition.
DALTON-10/19/24- PFO with positive agitated saline contrast bubble study.
Lower extremity ultrasound�no evidence of DVT.
# Vomiting and diarrhea-resolved. No further episodes of diarrhea
# Tachycardia-normal TSH likely secondary to volume depletion from vomiting and diarrhea.
EKG [facility].
Heart rate improved with IV fluids
resolved
ok to dc telemetry, patient completed 14 day Medilynx monitor as below
#Acute CVA
Several scattered small nonhemorrhagic acute/subacute infarcts throughout the left cerebral hemisphere sinus� Concern for cardioembolic etiology
Continue Plavix for total of 21 days and aspirin indefinitely
Statin started
Hemoglobin A1c 5.3
DALTON shows PFO but no cardiac source of emboli. Ultrasound legs negative for DVT
14 day Medilynx monitor completed with cardio 10/20/24-11/02/24 results pending, cont follow up with cardio
# VBP-vydjwz-kx with cardiology as outpatient
# Smoker-cessation counseling
# History of tracheostomy and PEG tube for prior head injury
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
# DVT prophylaxis-Lovenox
# Full code
PT/OT appreciated Acute vs SNF rehab
Medically stable for discharge pending placement/insurance
I spent a total of 25 minutes with the patient or on the floor. More than 50% of this time involved counseling and coordination of care.
Anticipated Discharge: Within 24 hours
Subjective/Interval History
-
Date of Service: November 03, 2024
no new acute issues. awaiting placement
Objective Data
-
Vital Signs:
Vital Signs
Temp Pulse Resp BP Pulse Ox
97.9 F 60 16 123/84 97
11/02/24 22:58 11/02/24 22:58 11/02/24 22:58 11/02/24 22:58 11/02/24 22:58
I&O
11/02/24 11/03/24 11/04/24
06:59 06:59 06:59
Intake Total 960 / 960 960 / 960
Balance 960 / 960 960 / 960
[2024-11-03 07:50] VITALS: BP 123/84
[2024-11-03] MEDS: PLAVIX 75 MG PO (08:50)
[2024-11-03] MEDS: LOW STRENGTH ASPIRIN 81 MG PO (08:50)
[2024-11-03 12:14] VITALS: BP 122/80; PULSE 66; O2SAT 96
[2024-11-03 15:00] VITALS: BP 121/82
[2024-11-03] MEDS: LIPITOR 40 MG PO (18:42)
[2024-11-03] MEDS: LOVENOX 40 MG SC (18:44)
[2024-11-03] MEDS: TYLENOL 650 MG PO (20:47)
[2024-11-03 23:25] VITALS: BP 127/75
--- NOTE | 2024-11-04 02:33 | DOWNTIME ---
There was a [employer] Client Director Transportation Downtime on 11/04/2024 from 0100 to 11/04/2023 at 0205 . Downtime documentation of patient's care, including medication administrations, has been reconciled in the electronic record per guidelines. Refer to the
patient's paper chart under the miscellaneous tab to see printed paper medication records and downtime forms.
--- NOTE | 2024-11-04 07:06 | W.PN.HOSP.TC ---
Today's Communication/Plan
-
Medically stable for discharge pending placement/insurance
Assessment / Plan
Assessment / Plan
Physical Exam
General: no acute distress appears comfortable at this time
HEENT: Normocephalic Atraumatic moist oral mucosa
CVS: S1-S2 NSR no murmurs rubs gallops
Chest: CTA B/L
Abdomen: Soft, NT / Bowel sounds present
Extremities: No edema, normal pulses
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
Psych: Calm
64M hx TBI uninsured tobacco use here for CVA.
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
hemosiderin deposition.
DALTON-10/19/24- PFO with positive agitated saline contrast bubble study.
Lower extremity ultrasound�no evidence of DVT.
# Vomiting and diarrhea-resolved. No further episodes of diarrhea
# Tachycardia-normal TSH likely secondary to volume depletion from vomiting and diarrhea.
EKG [facility].
Heart rate improved with IV fluids
resolved
ok to dc telemetry, patient completed 14 day Medilynx monitor as below
#Acute CVA
Several scattered small nonhemorrhagic acute/subacute infarcts throughout the left cerebral hemisphere sinus� Concern for cardioembolic etiology
Continue Plavix for total of 21 days and aspirin indefinitely
Statin started
Hemoglobin A1c 5.3
DALTON shows PFO but no cardiac source of emboli. Ultrasound legs negative for DVT
14 day Medilynx monitor completed with cardio 10/20/24-11/02/24 results pending, cont follow up with cardio
# XGF-vjccyg-ji with cardiology as outpatient
# Smoker-cessation counseling
# History of tracheostomy and PEG tube for prior head injury
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
# DVT prophylaxis-Lovenox
# Full code
PT/OT appreciated Acute vs SNF rehab
Medically stable for discharge pending placement/insurance
I spent a total of 25 minutes with the patient or on the floor. More than 50% of this time involved counseling and coordination of care.
Anticipated Discharge: Within 24 hours
Subjective/Interval History
-
Date of Service: November 04, 2024
no new acute issues. comfortable
Objective Data
-
Vital Signs:
Vital Signs
Temp Pulse Resp BP Pulse Ox
98.2 F 60 18 127/75 97
11/03/24 23:25 11/03/24 23:25 11/03/24 23:25 11/03/24 23:25 11/03/24 23:25
I&O
11/03/24 11/04/24 11/05/24
06:59 06:59 06:59
Intake Total 960 / 960 720 / 720
Balance 960 / 960 720 / 720
[2024-11-04] MEDS: LOW STRENGTH ASPIRIN 81 MG PO (07:17)
[2024-11-04] MEDS: PLAVIX 75 MG PO (07:17)
[2024-11-04 07:35] VITALS: BP 127/89
--- NOTE | 2024-11-04 12:21 | CM ---
CM attempted call to pt's son, Behzad Delatorre Left message
CM spoke w/ pt's friend/roommate, Will, regarding d/c plan and efforts in establishing insurance for pt. CM informed Will that pt does not qualify for medicare per [employer]. Per director, pt wouldn't be able to apply for Medicaid as there is a time
period of 2 years, 4 months before he can apply. Will confirmed that pt does not receive SSDI, but SSI that equates monthly to about $1,900. CM discussed the unfortunate options of pt having to either private pay for rehab or d/c home. ARDEN stated pt
can be seen at [facility] for free health and dental care but will need to assist pt w/ filling out the application. Pt will need to have an income of nothing greater than $3,138 per month to qualify, Will confirmed pt is below that
income as his SSI is his only income at this time. ARDEN shared [employer] website to explore low cost health insurance coverage. Will confirmed he has heard of this and will have to look into this for pt as pt is incapable of doing this independently.
Will had some concerns of pt returning home and being alone as he works 8 hours per day and pt resides on the second floor. Per request, CM emailed Will Mcelroy application and [employer] website information. Will stated he is able to transport
pt home tomorrow if he is d/c. Will stated he is unsure if pt's son is now coming from [place] as he now has no vehicle.
[2024-11-04 15:15] VITALS: BP 128/91
[2024-11-04] MEDS: LOVENOX 40 MG SC (19:07)
[2024-11-04] MEDS: LIPITOR 40 MG PO (19:07)
[2024-11-04 23:42] VITALS: BP 135/83
[2024-11-05 07:15] VITALS: BP 157/80
--- NOTE | 2024-11-05 07:26 | W.PN.HOSP.TC ---
Today's Communication/Plan
-
safe discharge planning
monitor bowel movements
PT/OT
check Abd X-ray stool burden
Assessment / Plan
Assessment / Plan
Physical Exam
General: no acute distress appears comfortable at this time
HEENT: Normocephalic Atraumatic moist oral mucosa
CVS: S1-S2 NSR no murmurs rubs gallops
Chest: CTA B/L
Abdomen: Soft, NT/ Bowel sounds present, distended suspected due to constipation
Extremities: No edema, normal pulses
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
Psych: Calm
64M hx TBI uninsured tobacco use here for CVA.
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
hemosiderin deposition.
DALTON-10/19/24- PFO with positive agitated saline contrast bubble study.
Lower extremity ultrasound�no evidence of DVT.
# Vomiting and diarrhea-resolved. No further episodes of diarrhea
# Tachycardia-normal TSH likely secondary to volume depletion from vomiting and diarrhea.
EKG [facility].
Heart rate improved with IV fluids
resolved
ok to dc telemetry, patient completed 14 day Medilynx monitor as below
#Acute CVA
Several scattered small nonhemorrhagic acute/subacute infarcts throughout the left cerebral hemisphere sinus� Concern for cardioembolic etiology
Continue Plavix for total of 21 days and aspirin indefinitely
Statin started
Hemoglobin A1c 5.3
DALTON shows PFO but no cardiac source of emboli. Ultrasound legs negative for DVT
14 day Medilynx monitor completed with cardio 10/20/24-11/02/24 results pending, cont follow up with cardio
Significant cognitive impairment noted BCAT as per OT eval 10/20/24
Patient's ability to complete ADL and personal care likely significantly impaired
Psych eval appreciated patient does not have capacity for medical decision making
Constipation
resolved with laxative
Abd X-ray pending
# FKV-[id number]-wy with cardiology as outpatient
# Smoker-cessation counseling
# History of tracheostomy and PEG tube for prior head injury
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
# DVT prophylaxis-Lovenox
# Full code
PT/OT appreciated Acute vs SNF rehab, unfortunately options limited d/t lack of insurance, re-eval requested for potential needs patient may require if going home with Friend/Roommate/Family
I spent a total of 40 minutes with the patient or on the floor. More than 50% of this time involved counseling and coordination of care.
Anticipated Discharge: 24 - 48 hours
Subjective/Interval History
-
Date of Service: November 05, 2024
Abdomen distended, unclear when patient's last bowel movement was. Otherwise in no acute distress. Denies pain nausea vomiting urinary symptoms including retention. Tolerating diet
Objective Data
-
Vital Signs:
Vital Signs
Temp Pulse Resp BP Pulse Ox
98.0 F 63 14 135/83 97
11/04/24 23:42 11/04/24 23:42 11/04/24 23:42 11/04/24 23:42 11/04/24 23:42
I&O
11/04/24 11/05/24 11/06/24
06:59 06:59 06:59
Intake Total 720 / 720
Balance 720 / 720
[2024-11-05] MEDS: LOW STRENGTH ASPIRIN 81 MG PO (09:25)
[2024-11-05] MEDS: PLAVIX 75 MG PO (09:25)
--- NOTE | 2024-11-05 09:29 | CM ---
CM called [facility] to obtain information on the [employer] care management program. CM spoke w/ an intake person who discussed w/ CM about the program and if pt would eligible to receive services in the home through this program. It was clarified that the
care management program provides in home support services that includes personal care services, laundry tasks, completes shopping for the participants, provides adult day services, etc. CM stated pt is capable of doing personal care and caring for
himself in the home, despite his TBI. ARDEN was informed that pt may not be appropriate or may not be able to qualify for waiver, even with his TBI, as he is over the income threshold for services.
[2024-11-05] MEDS: SENOKOT-S 1 TABLET PO ×2 (11:50→19:19)
[2024-11-05 16:18] VITALS: BP 118/80
--- NOTE | 2024-11-05 16:26 | CON.MD ---
Consultation - Medical
-
Patient seen chart reviewed. discussed with nursing and cm. this consult was ordered re capacity for medical decision making. the patient is a 64 year old male brought to by his roommate for change in speech and problems with simple tasks eg
zippering his coat using utensils to eat. he reported tingling of his fingertips. he cannot recall today why he was here and even when i explained it to him he did not remember this situation. he said he is 'fine'. i asked him if he understood the
tests he had undergone eg JONA showing he had a patent foramen ovale. while i would not expect a medical grade explanation he seemed to have no idea of what had been done for him since he came here and no conception of his limitations. he said he
is perfectly capable of taking care of himself although the chart and those caring for him describe significant disability. when i asked him about a traumatic brain injury he could not tell me anything about it. when i told him i had been advised
his head had been injured he told me he fell out of a tree many years ago but told me there were no sequelae. from PT and OT evals patient has significant disability (he scored 25/50 on the BCAT and significant issues were noted in short term
memory, orientation and even ability to order his meals at by phone) but he was unable to describe to me any of the problems he might encounter even when asked leading questions. patient denied any psychiatric history. he was overall a poor
historian.
past psych hx none as above
medical hx patient w hx of cva subacute /acute in l [facility] noted on mri . patent foramen ovale is implicated via jona study. hx tbi. hld baseline ataxia brain atrophy and severe leukoaraosis macrocytosis vital signs today ok elevated ldl a1c
5.3
smokes cigs
substance abuse denied
fh non contributory
social resides w roommate in a home he owns. roommate reportedly care for him. 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
mse alert to person October 2024. could not tell me day of week or date. does not know president of [facility] . alert to place. could repeat four digits forward none backward. could not do serial sevens . recalled no objects at three minutes. was able
to tell me only four words beginning with an F in one minute. could not repeat sentences. was able to do one of two similarities. told me a watch and a ruler 'both begin with r'. these are components of the MOCA i did not administer full moca
but his score would be very impaired. mood was neutral affect blunted denied sx of depression including si cognitively impaired insight judgment lacking
dx cognitive impairment likely secondary to tbi and encephalopathy
recommendations given patient's presentation today...his inability to give me any reliable information as to why he is here...that he does not seem to comprehend the seriousness of his illness....the fact that he shows no understanding of the
treatment recommended and as well demonstrated significant cognitive impairment, it is my opinion that he does not have capacity for medical decision making. would check tsh folate and b12 if not already done. patient not in need of psychotropic
medication at the present time. nursing reports he is very cooperative with his care here. psych will sign off. please let us know if you need us to return.
[2024-11-05] MEDS: LIPITOR 40 MG PO (17:23)
[2024-11-05] MEDS: LOVENOX 40 MG SC (17:23)
[2024-11-05 23:16] VITALS: BP 125/86
--- NOTE | 2024-11-06 07:07 | W.PN.HOSP.TC ---
Today's Communication/Plan
-
safe discharge planning
Assessment / Plan
Assessment / Plan
Physical Exam
General: no acute distress appears comfortable at this time
HEENT: Normocephalic Atraumatic moist oral mucosa
CVS: S1-S2 NSR no murmurs rubs gallops
Chest: CTA B/L
Abdomen: Soft, NT/ Bowel sounds present, distended suspected due to constipation
Extremities: No edema, normal pulses
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
Psych: Calm
64M hx TBI uninsured tobacco use here for CVA.
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
hemosiderin deposition.
DALTON-10/19/24- PFO with positive agitated saline contrast bubble study.
Lower extremity ultrasound�no evidence of DVT.
# Vomiting and diarrhea-resolved. No further episodes of diarrhea
# Tachycardia-normal TSH likely secondary to volume depletion from vomiting and diarrhea.
EKG [facility].
Heart rate improved with IV fluids
resolved
ok to dc telemetry, patient completed 14 day Medilynx monitor as below
#Acute CVA
Several scattered small nonhemorrhagic acute/subacute infarcts throughout the left cerebral hemisphere sinus� Concern for cardioembolic etiology
Continue Plavix for total of 21 days and aspirin indefinitely
Statin started
Hemoglobin A1c 5.3
DALTON shows PFO but no cardiac source of emboli. Ultrasound legs negative for DVT
14 day Medilynx monitor completed with cardio 10/20/24-11/02/24 results pending, cont follow up with cardio
Significant cognitive impairment noted BCAT 25/50 as per OT eval 10/20/24
Patient's ability to complete ADL and personal care likely significantly impaired
Psych eval appreciated patient does not have capacity for medical decision making
Constipation
Abd X-ray appreciated moderate fecal material in rectum
resolved with laxative, patient since had large bowel movement after above Abd X-ray was done
# EZL-fbfmge-ud with cardiology as outpatient
# Smoker-cessation counseling
# History of tracheostomy and PEG tube for prior head injury
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
# DVT prophylaxis-Lovenox
# Full code
PT/OT appreciated Acute vs SNF rehab, unfortunately options limited d/t lack of insurance, if going home patient needs 24H supervision d/t to need for initiation/sequencing/planning ADL, needs assistance with medical mgmt, IADL, recommended no
driving.
Discussed with patient and patient's friend/roommate Will
I spent a total of 35 minutes with the patient or on the floor. More than 50% of this time involved counseling and coordination of care.
Anticipated Discharge: 24 - 48 hours
Subjective/Interval History
-
Date of Service: November 06, 2024
No acute distress. Comfortable. Denies new acute issues.
Objective Data
-
Labs:
Laboratory Results
11/06/24
06:27
WBC Pending
Hgb Pending
Hct Pending
Plt Count Pending
Sodium Pending
Potassium Pending
Chloride Pending
Carbon Dioxide Pending
BUN Pending
Creatinine Pending
Glucose Pending
Calcium Pending
Vital Signs:
Vital Signs
Temp Pulse Resp BP Pulse Ox
98.4 F 69 18 125/86 97
11/05/24 23:16 11/05/24 23:16 11/05/24 23:16 11/05/24 23:16 11/05/24 23:16
I&O
11/05/24 11/06/24 11/07/24
06:59 06:59 06:59
Intake Total 1560 / 1560
Balance 1559
[2024-11-06 07:31] LABS: Hematocrit 41.3 % (39.0-52.0); Hemoglobin 14.8 g/dL (13.0-18.0); Mean Corp Hgb Conc. 35.8 g/dL (33.0-37.0); Mean Corpuscular Hgb 33.9 pg (27.0-31.0); Mean Corpuscular Volume 94.5 fL (80.0-94.0); Mean Platelet Volume 9.6 fL (7.4-10.4); Platelet Count 363 10^3/uL (130-400); Red Blood Cell Count 4.37 10^6/uL (4.70-6.10); Red Cell Dist. Width 13.4 % (11.5-14.5); White Blood Cell Count 8.1 10^3/uL (4.8-10.8)
[2024-11-06 07:56] VITALS: BP 144/71
[2024-11-06 08:08] LABS: Blood Urea Nitrogen 14 mg/dl (9-20); Calcium 8.8 mg/dl (8.4-10.2); Carbon Dioxide 23 mmol/L (22-30); Chloride 101 mmol/L (98-107); Estimated Creatinine Clearance 79 ml/min; Glucose 93 mg/dl (70-99); Magnesium 2.4 mg/dl (1.6-2.3); Potassium 4.7 mmol/L (3.5-5.1); Sodium 136 mmol/L (135-145); eGFR > 60.00
[2024-11-06] MEDS: LOW STRENGTH ASPIRIN 81 MG PO (08:09)
[2024-11-06] MEDS: PLAVIX 75 MG PO (08:09)
[2024-11-06 08:33] LABS: TSH Reflex To Free T4 3.11 uIU/ml (0.47-4.68)
[2024-11-06 09:09] LABS: Folate 11.7 ng/ml (2.76-20); Vitamin B12 649 pg/ml (239-931)
--- NOTE | 2024-11-06 11:59 | CM ---
CM spoke w/ pt's friend, Will, whom he currently lives with, at length. Will informed CM that he has been calling multiple insurance companies w/ use of the [employer] website to obtain low cost insurance for pt. Will stated he is awaiting paperwork
from [employer] to see what policy pt is approved for and hoping pt can go to rehab w/ insurance coverage. CM advised Will that pt is unable to remain the hospital to await paperwork in the mail considering the uncertainty of when the insurance policy may
start. Will understood this. CM discussed the option of pt going to rehab and paying privately to possibly qualify for MA as he currently is over the income eligibility. Will understood this option as a means for pt to be qualified for MA, but has
concerns of depleting pt's money for this reason. Will stated he and pt's son, Behzad Delatorre, discussed him becoming pt's POA. Will stated he and pt have been friends for 38 years and want to be sure he is doing everything right by him as pt's son
trusts him. Will stated he will have to discuss this option w/ pt's son and niece as this is a big decision.
Discussed w/ hospitalist pt's capacity to make decisions, Dr. Santiago unsure and will consult psych. Dr. Santiago stated pt going home may not be safe as pt would not be able to complete personal care independently and that pt scored 25/50 on the BCAT and
there are some cognitive deficits.
Psych evaluated pt and deemed pt as not having capacity for medical decision making.
Discussed w/ CM director who will consult risk
[2024-11-06 15:52] VITALS: BP 105/72
[2024-11-06 16:02] VITALS: BP 127/95; PULSE 98
[2024-11-06] MEDS: LIPITOR 40 MG PO (17:55)
[2024-11-06] MEDS: LOVENOX 40 MG SC (17:56)
[2024-11-06 23:00] VITALS: BP 134/78
[2024-11-07 07:06] VITALS: BP 104/78
--- NOTE | 2024-11-07 07:20 | W.PN.HOSP.TC ---
Today's Communication/Plan
-
safe discharge planning
Assessment / Plan
Assessment / Plan
Physical Exam
General: no acute distress appears comfortable at this time
HEENT: Normocephalic Atraumatic moist oral mucosa
CVS: S1-S2 NSR no murmurs rubs gallops
Chest: CTA B/L
Abdomen: Soft, NT/ Bowel sounds present, distended suspected due to constipation
Extremities: No edema, normal pulses
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
Psych: Calm
64M hx TBI uninsured tobacco use here for CVA.
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
hemosiderin deposition.
DALTON-10/19/24- PFO with positive agitated saline contrast bubble study.
Lower extremity ultrasound�no evidence of DVT.
# Vomiting and diarrhea-resolved. No further episodes of diarrhea
# Tachycardia-normal TSH likely secondary to volume depletion from vomiting and diarrhea.
EKG [facility].
Heart rate improved with IV fluids
resolved
ok to dc telemetry, patient completed 14 day Medilynx monitor as below
#Acute CVA
Several scattered small nonhemorrhagic acute/subacute infarcts throughout the left cerebral hemisphere sinus� Concern for cardioembolic etiology
Continue Plavix for total of 21 days and aspirin indefinitely
Statin started
Hemoglobin A1c 5.3
DALTON shows PFO but no cardiac source of emboli. Ultrasound legs negative for DVT
14 day Medilynx monitor completed with cardio 10/20/24-11/02/24 results pending, cont follow up with cardio
Significant cognitive impairment noted BCAT 25/50 as per OT eval 10/20/24
Patient's ability to complete ADL and personal care likely significantly impaired
Psych eval appreciated patient does not have capacity for medical decision making
Constipation
Abd X-ray appreciated moderate fecal material in rectum
resolved with laxative, patient since had large bowel movement after above Abd X-ray was done.
laxatives prn
# [id number]-[id number] with cardiology as outpatient
# Smoker-cessation counseling
# History of tracheostomy and PEG tube for prior head injury
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
# DVT prophylaxis-Lovenox
# Full code
PT/OT appreciated Acute vs SNF rehab, unfortunately options limited d/t lack of insurance, if going home patient needs 24H supervision d/t to need for initiation/sequencing/planning ADL, needs assistance with medical mgmt, IADL, recommended no
driving.
Discussed with patient and patient's friend/roommate Will
I spent a total of 25 minutes with the patient or on the floor. More than 50% of this time involved counseling and coordination of care.
Anticipated Discharge: 24 - 48 hours
Subjective/Interval History
-
Date of Service: November 07, 2024
no acute distress. Appears comfortable
Objective Data
-
Vital Signs:
Vital Signs
Temp Pulse Resp BP Pulse Ox
97.7 F 63 16 134/78 97
11/06/24 23:00 11/06/24 23:00 11/06/24 23:00 11/06/24 23:00 11/06/24 23:00
I&O
11/06/24 11/07/24 11/08/24
06:59 06:59 06:59
Intake Total 1560 / 1560 1440 / 1440
Balance 1560 / 1560 1440 / 1440
[2024-11-07] MEDS: LOW STRENGTH ASPIRIN 81 MG PO (07:42)
[2024-11-07] MEDS: PLAVIX 75 MG PO (07:42)
[2024-11-07 15:31] VITALS: BP 131/77
[2024-11-07 16:30] VITALS: BP 131/77
[2024-11-07 16:31] VITALS: BP 131/77
[2024-11-07] MEDS: LOVENOX 40 MG SC (17:26)
[2024-11-07] MEDS: LIPITOR 40 MG PO (17:26)
[2024-11-07 23:00] VITALS: BP 135/72
[2024-11-08 07:23] VITALS: BP 129/78
--- NOTE | 2024-11-08 07:50 | W.PN.HOSP.TC ---
Today's Communication/Plan
-
safe discharge planning (ideally rehab, at minimum patient needs 24/7 supervision)
ok to discontinue NIH and neurochecks
cont ASA statin
Assessment / Plan
Assessment / Plan
Physical Exam
General: no acute distress appears comfortable at this time
HEENT: Normocephalic Atraumatic moist oral mucosa
CVS: S1-S2 NSR no murmurs rubs gallops
Chest: CTA B/L
Abdomen: Soft, NT/ Bowel sounds present, distended suspected due to constipation
Extremities: No edema, normal pulses
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
Psych: Calm
64M hx TBI uninsured tobacco use here for CVA.
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
hemosiderin deposition.
DALTON-10/19/24- PFO with positive agitated saline contrast bubble study.
Lower extremity ultrasound�no evidence of DVT.
# Vomiting and diarrhea-resolved. No further episodes of diarrhea
# Tachycardia-normal TSH likely secondary to volume depletion from vomiting and diarrhea.
EKG [facility].
Heart rate improved with IV fluids
resolved
ok to dc telemetry, patient completed 14 day Medilynx monitor as below
#Acute CVA
Several scattered small nonhemorrhagic acute/subacute infarcts throughout the left cerebral hemisphere sinus� Concern for cardioembolic etiology
Completed Plavix DAPT, cont aspirin indefinitely
Statin started, cont
Hemoglobin A1c 5.3
DALTON shows PFO but no cardiac source of emboli. Ultrasound legs negative for DVT
14 day Medilynx monitor completed with cardio 10/20/24-11/02/24 results pending, cont follow up with cardio
Significant cognitive impairment noted BCAT as per OT eval 10/20/24
Patient's ability to complete ADL and personal care likely significantly impaired
Psych eval appreciated patient does not have capacity for medical decision making
Constipation
Abd X-ray appreciated moderate fecal material in rectum
resolved with laxative, patient since had large bowel movement after above Abd X-ray was done.
laxatives prn
# [id number]-[id number]-[id number] with cardiology as outpatient
# Smoker-cessation counseling
# History of tracheostomy and PEG tube for prior head injury
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
# DVT prophylaxis-Lovenox
# Full code
PT/OT appreciated Acute vs SNF rehab, unfortunately options limited d/t lack of insurance, if going home patient needs 24H supervision d/t to need for initiation/sequencing/planning ADL, needs assistance with medical mgmt, IADL, recommended no
driving.
Discussed with patient and patient's friend/roommate Will
I spent a total of 25 minutes with the patient or on the floor. More than 50% of this time involved counseling and coordination of care.
Anticipated Discharge: 24 - 48 hours
Subjective/Interval History
-
Date of Service: November 08, 2024
No acute distress. Comfortable.
Objective Data
-
Vital Signs:
Vital Signs
Temp Pulse Resp BP Pulse Ox
98.1 F 64 20 135/72 96
11/07/24 23:00 11/07/24 23:00 11/07/24 23:00 11/07/24 23:00 11/07/24 23:00
I&O
11/07/24 11/08/24 11/09/24
06:59 06:59 06:59
Intake Total 1440 / 1440 720 / 720
Balance 1440 / 1440 720 / 720
[2024-11-08] MEDS: LOW STRENGTH ASPIRIN 81 MG PO (08:13)
[2024-11-08 15:27] VITALS: BP 116/85
[2024-11-08] MEDS: LOVENOX 40 MG SC (17:38)
[2024-11-08] MEDS: LIPITOR 40 MG PO (17:39)
[2024-11-08 23:18] VITALS: BP 142/87
[2024-11-09 07:41] VITALS: BP 134/76
[2024-11-09] MEDS: LOW STRENGTH ASPIRIN 81 MG PO (08:22)
[2024-11-09 11:25] VITALS: BP 116/82; BP 131/96; PULSE 68; O2SAT 96
--- NOTE | 2024-11-09 12:06 | W.PN.HOSP.TC ---
Today's Communication/Plan
-
Discharge planning
Medically stable for discharge
Assessment / Plan
Assessment / Plan
64M hx TBI uninsured tobacco use here for CVA.
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
hemosiderin deposition.
DALTON-10/19/24- PFO with positive agitated saline contrast bubble study.
Lower extremity ultrasound�no evidence of DVT.
CVS: S1-S2 normal
Chest: CTA B/L
Abdomen: Soft, NT / Bowel sounds present
Extremities: No edema, normal pulses
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
# Vomiting and diarrhea-resolved. No further episodes of diarrhea
# Tachycardia-normal TSH likely secondary to volume depletion from vomiting and diarrhea.
EKG [facility].
Heart rate improved with IV fluids
resolved
ok to dc telemetry, patient completed 14 day Medilynx monitor as below
#Acute CVA
Several scattered small nonhemorrhagic acute/subacute infarcts throughout the left cerebral hemisphere sinus� Concern for cardioembolic etiology
Completed Plavix DAPT, cont aspirin indefinitely
Statin started, cont
Hemoglobin A1c 5.3
DALTON shows PFO but no cardiac source of emboli. Ultrasound legs negative for DVT
14 day Medilynx monitor completed with cardio 10/20/24-11/02/24 results pending, cont follow up with cardio
Significant cognitive impairment noted BCAT 25/50 as per OT eval 10/20/24
Patient's ability to complete ADL and personal care likely significantly impaired
Psych eval appreciated patient does not have capacity for medical decision making
#Constipation
Abd X-ray appreciated moderate fecal material in rectum
resolved with laxative, patient since had large bowel movement after above Abd X-ray was done.
laxatives prn
# RJE-tuxgjz-qj with cardiology as outpatient
# Smoker-cessation counseling
# History of tracheostomy and PEG tube for prior head injury
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
# DVT prophylaxis-Lovenox
# Full code
PT/OT appreciated Acute vs SNF rehab, unfortunately options limited d/t lack of insurance, if going home patient needs 24H supervision d/t to need for initiation/sequencing/planning ADL, needs assistance with medical mgmt, IADL, recommended no
driving.
Anticipated Discharge: 24 - 48 hours
Subjective/Interval History
-
Date of Service: November 09, 2024
Objective Data
-
Vital Signs:
Vital Signs
Temp Pulse Resp BP Pulse Ox
98.7 F 60 20 134/76 99
11/09/24 07:41 11/09/24 07:41 11/09/24 07:41 11/09/24 07:41 11/09/24 07:41
I&O
11/08/24 11/09/24 11/10/24
06:59 06:59 06:59
Intake Total 720 / 720 1020 / 1020
Balance 720 / 720 1020 / 1020
[2024-11-09 15:16] VITALS: BP 126/85
--- NOTE | 2024-11-09 15:33 | CM ---
Spoke w/ pt's son, Behzad Duggan, regarding psych evaluation of pt not having decision making capacity and the need for guardianship. Behzad Duggan stated he and pt's friend/roommate, Will, are beginning the steps to obtain POA. CM clarified that POA is
no longer appropriate as pt will not be able to sign POA paperwork legally. Behzad Duggan. stated he will further discuss w/ Will
CM spoke w/ Will informing of discussion w/ Behzad Duggan, and the need to pursue guardianship for pt. Will was very agreeable and open to support in this. CM provided a contact, Mara Ramírez, who assists w/ obtaining guardianship. Will stated he
will give her a call as he wants to be able to obtain guardianship for pt to cont to support him and assist w/ his care needs.
[2024-11-09] MEDS: LOVENOX 40 MG SC (17:13)
[2024-11-09] MEDS: LIPITOR 40 MG PO (17:13)
[2024-11-09 22:48] VITALS: BP 132/88
[2024-11-10] MEDS: LOW STRENGTH ASPIRIN 81 MG PO (07:27)
[2024-11-10 07:35] VITALS: BP 122/79
[2024-11-10 14:59] VITALS: BP 143/86
[2024-11-10 15:05] VITALS: BP 129/95; BP 138/96; PULSE 128; O2SAT 94
--- NOTE | 2024-11-10 15:33 | W.PN.HOSP.TC ---
Today's Communication/Plan
-
medically stable for discharge
Assessment / Plan
Assessment / Plan
64M hx TBI uninsured tobacco use here for CVA.
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
hemosiderin deposition.
DALTON-10/19/24- PFO with positive agitated saline contrast bubble study.
Lower extremity ultrasound�no evidence of DVT.
CVS: S1-S2 normal
Chest: CTA B/L
Abdomen: Soft, NT / Bowel sounds present
Extremities: No edema
# Vomiting and diarrhea-resolved. No further episodes of diarrhea
# Tachycardia-normal TSH likely secondary to volume depletion from vomiting and diarrhea.
EKG [facility].
Heart rate improved with IV fluids
resolved
ok to dc telemetry, patient completed 14 day Medilynx monitor as below
#Acute CVA
Several scattered small nonhemorrhagic acute/subacute infarcts throughout the left cerebral hemisphere sinus� Concern for cardioembolic etiology
Completed Plavix DAPT, cont aspirin indefinitely
Statin started, cont
Hemoglobin A1c 5.3
DALTON shows PFO but no cardiac source of emboli. Ultrasound legs negative for DVT
14 day Medilynx monitor completed with cardio 10/20/24-11/02/24 results pending, cont follow up with cardio
Significant cognitive impairment noted BCAT as per OT eval 10/20/24
Patient's ability to complete ADL and personal care likely significantly impaired
Psych eval appreciated patient does not have capacity for medical decision making
#Constipation
Abd X-ray appreciated moderate fecal material in rectum
resolved with laxative, patient since had large bowel movement after above Abd X-ray was done.
laxatives prn
# MBK-hoimvm-qc with cardiology as outpatient
# Smoker-cessation counseling
# History of tracheostomy and PEG tube for prior head injury
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
# DVT prophylaxis-Lovenox
# Full code
PT/OT appreciated Acute vs SNF rehab, unfortunately options limited d/t lack of insurance, if going home patient needs 24H supervision d/t to need for initiation/sequencing/planning ADL, needs assistance with medical mgmt, IADL, recommended no
driving.
Anticipated Discharge: Within 24 hours
Subjective/Interval History
-
Date of Service: November 10, 2024
Objective Data
-
Vital Signs:
Vital Signs
Temp Pulse Resp BP Pulse Ox
98.4 F 70 18 143/86 100
11/10/24 14:59 11/10/24 14:59 11/10/24 14:59 11/10/24 14:59 11/10/24 14:59
I&O
11/09/24 11/10/24 11/11/24
06:59 06:59 06:59
Intake Total 1020 / 1020 960 / 960
Balance 1020 / 1020 960 / 960
[2024-11-10] MEDS: LOVENOX 40 MG SC (17:10)
[2024-11-10] MEDS: LIPITOR 40 MG PO (17:10)
[2024-11-10 22:51] VITALS: BP 123/84
[2024-11-11 07:28] LABS: Hematocrit 41.6 % (39.0-52.0); Mean Corp Hgb Conc. 36.1 g/dL (33.0-37.0); Mean Corpuscular Hgb 34.4 pg (27.0-31.0); Mean Corpuscular Volume 95.4 fL (80.0-94.0); Mean Platelet Volume 9.4 fL (7.4-10.4); Platelet Count 347 10^3/uL (130-400); Red Blood Cell Count 4.36 10^6/uL (4.70-6.10); Red Cell Dist. Width 13.1 % (11.5-14.5); White Blood Cell Count 8.3 10^3/uL (4.8-10.8)
[2024-11-11 07:33] VITALS: BP 113/73
[2024-11-11 07:40] LABS: Blood Urea Nitrogen 17 mg/dl (9-20); Calcium 9.1 mg/dl (8.4-10.2); Carbon Dioxide 24 mmol/L (22-30); Chloride 102 mmol/L (98-107); Estimated Creatinine Clearance 79 ml/min; Glucose 92 mg/dl (70-99); Potassium 4.5 mmol/L (3.5-5.1); Sodium 137 mmol/L (135-145); eGFR > 60.00
[2024-11-11] MEDS: LOW STRENGTH ASPIRIN 81 MG PO (09:20)
--- NOTE | 2024-11-11 10:48 | CM ---
Addendum entered by Eveline Okeefe 11/11/24 14:49:
CM received a phone call from Will w/ Mara Ramírez, city attorney, on the phone as well. CM informed of psychiatrist deeming pt incapable of health care decision making and the need for guardianship for pt. Mara stated if pt can be assessed and has the
capacity to agree for Will to be his POA, the necessary paperwork could be all completed today w/ affordable cost vs pursuing guardianship which would cost Will a lot more money.
CM discussed w/ Dr. Guerrero assessing pt for capacity to agree w/ Will being POA. Per Dr. Guerrero, she's unable to assess pt for this as she does not know who Will is and doesn't know if Will has pt's best interest. CM explained Will and pt's
lengthy friendship as well as pt's son agreeing for Will to be POA, however, Dr. Guerrero continued to refuse to assess.
CM called Mara Ramírez's office to discuss, left message w/ clerk secretary.
Original Note:
CM followed up w/ pt's friend, Will, in efforts in guardianship process. Will stated he has attempted to reach out to the contact provided to assist w/ obtaining guardianship and has not been able to speak w/ her or received a call back. CM stated
she will attempt to reach out as well however encouraged Will to explore an elder care city attorney. Will agreed to this stating he has some city attorney friends through his work who may can recommend someone. Will stated he has taken off from work today
to be able to work on this. Will stated pt has called him several times yesterday asking for him to come and pick him up. Will stated he will keep CM updated w/ progress.
Plan: Guardianship for pt
[2024-11-11 15:05] VITALS: BP 107/69
--- NOTE | 2024-11-11 16:01 | W.PN.HOSP.TC ---
Today's Communication/Plan
-
Medically stable for discharge
Assessment / Plan
Assessment / Plan
64M hx TBI uninsured tobacco use here for CVA.
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
hemosiderin deposition.
DALTON-10/19/24- PFO with positive agitated saline contrast bubble study.
Lower extremity ultrasound�no evidence of DVT.
CVS: S1-S2 normal
Chest: CTA B/L
Abdomen: Soft, NT / Bowel sounds present
Extremities: No edema
# Vomiting and diarrhea-resolved. No further episodes of diarrhea
# Tachycardia-normal TSH likely secondary to volume depletion from vomiting and diarrhea.
EKG [facility].
Heart rate improved with IV fluids
resolved
Patient completed 14 day Medilynx monitor as below
#Acute CVA
Several scattered small nonhemorrhagic acute/subacute infarcts throughout the left cerebral hemisphere sinus� Concern for cardioembolic etiology
Completed Plavix DAPT, cont aspirin indefinitely
Statin started, cont
Hemoglobin A1c 5.3
DALTON shows PFO but no cardiac source of emboli. Ultrasound legs negative for DVT
14 day Medilynx monitor completed with cardio 10/20/24-11/02/24 results pending, cont follow up with cardio
Significant cognitive impairment noted BCAT 50 as per OT eval 10/20/24
Patient's ability to complete ADL and personal care likely significantly impaired
Psych eval appreciated patient does not have capacity for medical decision making
#Constipation
Abd X-ray appreciated moderate fecal material in rectum
resolved with laxative, patient since had large bowel movement after above Abd X-ray was done.
laxatives prn
# LGP-[id number]-um with cardiology as outpatient
# Smoker-cessation counseling
# History of tracheostomy and PEG tube for prior head injury
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
# DVT prophylaxis-Lovenox
# Full code
PT/OT appreciated Acute vs SNF rehab, unfortunately options limited d/t lack of insurance, if going home patient needs 24H supervision d/t to need for initiation/sequencing/planning ADL, needs assistance with medical mgmt, IADL, recommended no
driving.
Anticipated Discharge: Within 24 hours
Subjective/Interval History
-
Date of Service: November 11, 2024
Objective Data
-
Labs:
Laboratory Results
11/11/24
06:40
WBC 8.3
Hgb 15.0
Hct 41.6
Plt Count 347
Sodium 137
Potassium 4.5
Chloride 102
Carbon Dioxide 24
BUN 17
Creatinine 0.9
Glucose 92
Calcium 9.1
Vital Signs:
Vital Signs
Temp Pulse Resp BP Pulse Ox
98.7 F 71 18 107/69 97
11/11/24 15:05 11/11/24 15:05 11/11/24 15:05 11/11/24 15:05 11/11/24 15:05
I&O
11/10/24 11/11/24 11/12/24
06:59 06:59 06:59
Intake Total 960 / 960 960 / 960
Balance 960 / 960 960 / 960
[2024-11-11] MEDS: LIPITOR 40 MG PO (17:54)
[2024-11-11] MEDS: LOVENOX 40 MG SC (17:54)
[2024-11-11 23:00] VITALS: BP 152/96
[2024-11-12] MEDS: LOW STRENGTH ASPIRIN 81 MG PO (07:49)
[2024-11-12 07:53] VITALS: BP 122/78
[2024-11-12 15:03] VITALS: BP 120/77
--- NOTE | 2024-11-12 16:28 | W.PN.HOSP.TC ---
Today's Communication/Plan
-
Medically stable for discharge.
Case management to facilitate safe discharge planning.
Assessment / Plan
Assessment / Plan
64M hx TBI uninsured tobacco use here for CVA.
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
hemosiderin deposition.
DALTON-10/19/24- PFO with positive agitated saline contrast bubble study.
Lower extremity ultrasound�no evidence of DVT.
# Vomiting and diarrhea-resolved. No further episodes of diarrhea
# Tachycardia-normal TSH likely secondary to volume depletion from vomiting and diarrhea.
EKG [facility].
Heart rate improved with IV fluids
resolved
Patient completed 14 day Medilynx monitor as below
#Acute CVA
Several scattered small nonhemorrhagic acute/subacute infarcts throughout the left cerebral hemisphere sinus� Concern for cardioembolic etiology
Completed Plavix DAPT, cont aspirin indefinitely
Statin started, cont
Hemoglobin A1c 5.3
DALTON shows PFO but no cardiac source of emboli. Ultrasound legs negative for DVT
14 day Medilynx monitor completed with cardio 10/20/24-11/02/24 results pending, cont follow up with cardio
Significant cognitive impairment noted BCAT 50 as per OT eval 10/20/24
Patient's ability to complete ADL and personal care likely significantly impaired
Psych eval appreciated patient does not have capacity for medical decision making
#Constipation
Abd X-ray appreciated moderate fecal material in rectum
resolved with laxative, patient since had large bowel movement after above Abd X-ray was done.
laxatives prn
# HMA-rsprra-zq with cardiology as outpatient
# Smoker-cessation counseling
# History of tracheostomy and PEG tube for prior head injury
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
# DVT prophylaxis-Lovenox
# Full code
PT/OT appreciated Acute vs SNF rehab, unfortunately options limited d/t lack of insurance, if going home patient needs 24H supervision d/t to need for initiation/sequencing/planning ADL, needs assistance with medical mgmt, IADL, recommended no
driving.
Anticipated Discharge: Within 24 hours
Subjective/Interval History
-
Date of Service: November 12, 2024
Objective Data
-
Vital Signs:
Vital Signs
Temp Pulse Resp BP Pulse Ox
97.9 F 69 18 120/77 96
11/12/24 15:03 11/12/24 15:03 11/12/24 15:03 11/12/24 15:03 11/12/24 15:03
I&O
11/11/24 11/12/24 11/13/24
06:59 06:59 06:59
Intake Total 960 / 960 940 / 940
Balance 960 / 960 940 / 940
[2024-11-12] MEDS: LOVENOX 40 MG SC (17:09)
[2024-11-12] MEDS: LIPITOR 40 MG PO (17:09)
[2024-11-12 23:03] VITALS: BP 124/85
[2024-11-13 07:21] VITALS: BP 136/83
[2024-11-13] MEDS: LOW STRENGTH ASPIRIN 81 MG PO (07:30)
--- NOTE | 2024-11-13 12:58 | W.PN.HOSP.TC ---
Addendum entered and electronically signed by Kezia Macias MD 11/13/24 13:30:
Left message for son to call back
Original Note:
Today's Communication/Plan
-
Medically stable for discharge
Assessment / Plan
Assessment / Plan
64M hx TBI uninsured tobacco use here for CVA.
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
hemosiderin deposition.
DALTON-10/19/24- PFO with positive agitated saline contrast bubble study.
Lower extremity ultrasound�no evidence of DVT.
# Vomiting and diarrhea-resolved. No further episodes of diarrhea
# Tachycardia-normal TSH likely secondary to volume depletion from vomiting and diarrhea.
EKG [facility].
Heart rate improved with IV fluids
resolved
Patient completed 14 day Medilynx monitor as below
#Acute CVA
Several scattered small nonhemorrhagic acute/subacute infarcts throughout the left cerebral hemisphere sinus� Concern for cardioembolic etiology
Completed Plavix DAPT, cont aspirin indefinitely
Statin started, cont
Hemoglobin A1c 5.3
DALTON shows PFO but no cardiac source of emboli. Ultrasound legs negative for DVT
14 day Medilynx monitor completed with cardio 10/20/24-11/02/24 results pending, cont follow up with cardio
Significant cognitive impairment noted BCAT as per OT eval 10/20/24
Patient's ability to complete ADL and personal care likely significantly impaired
Psych eval appreciated patient does not have capacity for medical decision making
#Constipation
Abd X-ray appreciated moderate fecal material in rectum
resolved with laxative, patient since had large bowel movement after above Abd X-ray was done.
laxatives prn
# IVO-[id number]-hn with cardiology as outpatient
# Smoker-cessation counseling
# History of tracheostomy and PEG tube for prior head injury
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
# DVT prophylaxis-Lovenox
# Full code
PT/OT appreciated Acute vs SNF rehab, unfortunately options limited d/t lack of insurance, if going home patient needs 24H supervision d/t to need for initiation/sequencing/planning ADL, needs assistance with medical mgmt, IADL, recommended no
driving.
D/W Case management
Anticipated Discharge: Within 24 hours
Subjective/Interval History
-
Date of Service: November 13, 2024
Objective Data
-
Vital Signs:
Vital Signs
Temp Pulse Resp BP Pulse Ox
97.2 F 63 18 136/83 97
11/13/24 07:21 11/13/24 07:21 11/13/24 07:21 11/13/24 07:21 11/13/24 07:30
I&O
11/12/24 11/13/24 11/14/24
06:59 06:59 06:59
Intake Total 940 / 940 490 / 490
Balance 940 / 940 490 / 490
[2024-11-13 15:31] VITALS: BP 131/85
[2024-11-13] MEDS: LOVENOX 40 MG SC (17:21)
[2024-11-13] MEDS: LIPITOR 40 MG PO (17:21)
[2024-11-13 23:11] VITALS: BP 124/80
[2024-11-14] MEDS: LOW STRENGTH ASPIRIN 81 MG PO (07:32)
[2024-11-14 07:37] VITALS: BP 141/86
--- NOTE | 2024-11-14 15:31 | W.PN.HOSP.TC ---
Today's Communication/Plan
-
medically stable for discharge
Pt frustrated of sitting here
Assessment / Plan
Assessment / Plan
64M hx TBI uninsured tobacco use here for CVA.
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
hemosiderin deposition.
DALTON-10/19/24- PFO with positive agitated saline contrast bubble study.
Lower extremity ultrasound�no evidence of DVT.
# Vomiting and diarrhea-resolved. No further episodes of diarrhea
# Tachycardia-normal TSH likely secondary to volume depletion from vomiting and diarrhea.
EKG [facility].
Heart rate improved with IV fluids
resolved
Patient completed 14 day Medilynx monitor as below
#Acute CVA
Several scattered small nonhemorrhagic acute/subacute infarcts throughout the left cerebral hemisphere sinus� Concern for cardioembolic etiology
Completed Plavix DAPT, cont aspirin indefinitely
Statin started, cont
Hemoglobin A1c 5.3
DALTON shows PFO but no cardiac source of emboli. Ultrasound legs negative for DVT
14 day Medilynx monitor completed with cardio 10/20/24-11/02/24 results pending, cont follow up with cardio
Significant cognitive impairment noted BCAT 25/50 as per OT eval 10/20/24
Patient's ability to complete ADL and personal care likely significantly impaired
Psych eval appreciated patient does not have capacity for medical decision making
#Constipation
Abd X-ray appreciated moderate fecal material in rectum
resolved with laxative, patient since had large bowel movement after above Abd X-ray was done.
laxatives prn
# EID-[id number]-hj with cardiology as outpatient
# Smoker-cessation counseling
# History of tracheostomy and PEG tube for prior head injury
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
# DVT prophylaxis-Lovenox
# Full code
PT/OT appreciated Acute vs SNF rehab, unfortunately options limited d/t lack of insurance, if going home patient needs 24H supervision d/t to need for initiation/sequencing/planning ADL, needs assistance with medical mgmt, IADL, recommended no
driving.
D/W Case management
Anticipated Discharge: Within 24 hours
Subjective/Interval History
-
Date of Service: November 14, 2024
Objective Data
-
Vital Signs:
Vital Signs
Temp Pulse Resp BP Pulse Ox
98.2 F 66 16 141/86 96
11/14/24 07:37 11/14/24 07:37 11/14/24 07:37 11/14/24 07:37 11/14/24 07:37
I&O
11/13/24 11/14/24 11/15/24
06:59 06:59 06:59
Intake Total 490 / 490 960 / 960
Balance 490 / 490 960 / 960
[2024-11-14 15:45] VITALS: BP 114/78
[2024-11-14] MEDS: LOVENOX SC (16:07)
[2024-11-14] MEDS: LIPITOR 40 MG PO (16:07)
[2024-11-14 23:00] VITALS: BP 145/101
[2024-11-15 07:24] VITALS: BP 117/81
[2024-11-15] MEDS: LOW STRENGTH ASPIRIN 81 MG PO (07:31)
--- NOTE | 2024-11-15 09:04 | CM ---
CM spoke w/ pt's friend, Will, regarding guardianship for pt. CM discussed that psychiatrist does not believe it is appropriate for pt to be assessed for capacity to agree to POA following the initial evaluation. ARDEN stated that guardianship will
have to cont to be pursued as pt will not be able to agree to POA due to him being deemed not having the capacity for decision making. ARDEN explained that pt cannot admit to a SNF from the hospital without a guardian. ARDEN also gave Will the option of
pt to d/c home as Will mentioned pt has been calling him to pick him up, and they can obtain POA, however, pt would not be able to admit to SNF from home. CM also informed of the option of caregivers in the home since Will is not comfortable w/ pt
being home alone while he is at work. CM advised caregivers would be private pay. Will understood all this information stating the ip technology transactions attorney, Mara, did explain to him that obtaining guardianship would cost around $8-12,000. Will stated he does
have access to pt's money but will need to further discuss w/ pt's son about how to move forward. Will will keep CM updated
Plan: Guardianship. PT rec SNF, pt has no insurance. Friend is obtaining insurance from [employer]
--- NOTE | 2024-11-15 15:21 | W.PN.HOSP.TC ---
Today's Communication/Plan
-
No change, he has no symptoms
MEdically stable for discharge
Labs in am
Pls help patient shower
Assessment / Plan
Assessment / Plan
64M hx TBI uninsured tobacco use here for CVA.
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
hemosiderin deposition.
DALTON-10/19/24- PFO with positive agitated saline contrast bubble study.
Lower extremity ultrasound�no evidence of DVT.
# Vomiting and diarrhea-resolved. No further episodes of diarrhea
# Tachycardia-normal TSH likely secondary to volume depletion from vomiting and diarrhea.
EKG [facility].
Heart rate improved with IV fluids
resolved
Patient completed 14 day Medilynx monitor as below
#Acute CVA
Several scattered small nonhemorrhagic acute/subacute infarcts throughout the left cerebral hemisphere sinus� Concern for cardioembolic etiology
Completed Plavix DAPT, cont aspirin indefinitely
Statin started, cont
Hemoglobin A1c 5.3
DALTON shows PFO but no cardiac source of emboli. Ultrasound legs negative for DVT
14 day Medilynx monitor completed with cardio 10/20/24-11/02/24 results pending, cont follow up with cardio
Significant cognitive impairment noted BCAT as per OT eval 10/20/24
Patient's ability to complete ADL and personal care likely significantly impaired
Psych eval appreciated patient does not have capacity for medical decision making
#Constipation
Abd X-ray appreciated moderate fecal material in rectum
resolved with laxative, patient since had large bowel movement after above Abd X-ray was done.
laxatives prn
# ELN-kzmhfd-jx with cardiology as outpatient
# Smoker-cessation counseling
# History of tracheostomy and PEG tube for prior head injury
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
# DVT prophylaxis-Lovenox
# Full code
PT/OT appreciated Acute vs SNF rehab, unfortunately options limited d/t lack of insurance, if going home patient needs 24H supervision d/t to need for initiation/sequencing/planning ADL, needs assistance with medical mgmt, IADL, recommended no
driving.
D/W Case management
Anticipated Discharge: Within 24 hours
Subjective/Interval History
-
Date of Service: November 15, 2024
Objective Data
-
Vital Signs:
Vital Signs
Temp Pulse Resp BP Pulse Ox
98.0 F 58 16 117/81 99
11/15/24 07:24 11/15/24 07:24 11/15/24 07:24 11/15/24 07:24 11/15/24 07:35
I&O
11/14/24 11/15/24 11/16/24
06:59 06:59 06:59
Intake Total 960 / 960 420 / 420 240 / 240
Balance 960 / 960 420 / 420 240 / 240
[2024-11-15 15:42] VITALS: BP 118/81
[2024-11-15] MEDS: LIPITOR 40 MG PO (16:21)
[2024-11-15] MEDS: LOVENOX SC (16:21)
[2024-11-15 23:30] VITALS: BP 127/84
[2024-11-16] MEDS: LOW STRENGTH ASPIRIN 81 MG PO (07:23)
[2024-11-16 07:48] VITALS: BP 115/88
[2024-11-16 09:15] LABS: Hematocrit 40.4 % (39.0-52.0); Hemoglobin 14.3 g/dL (13.0-18.0); Mean Corp Hgb Conc. 35.4 g/dL (33.0-37.0); Mean Corpuscular Volume 96.2 fL (80.0-94.0); Mean Platelet Volume 10.1 fL (7.4-10.4); Platelet Count 310 10^3/uL (130-400); Red Cell Dist. Width 13.2 % (11.5-14.5); White Blood Cell Count 8.3 10^3/uL (4.8-10.8)
[2024-11-16 10:00] LABS: Blood Urea Nitrogen 13 mg/dl (9-20); Calcium 8.4 mg/dl (8.4-10.2); Carbon Dioxide 22 mmol/L (22-30); Chloride 102 mmol/L (98-107); Estimated Creatinine Clearance 79 ml/min; Glucose 79 mg/dl (70-99); Potassium 4.4 mmol/L (3.5-5.1); Sodium 137 mmol/L (135-145); eGFR > 60.00
[2024-11-16 13:20] VITALS: BP 128/85; PULSE 60; O2SAT 96
--- NOTE | 2024-11-16 14:59 | CM ---
manager client support continues to follow with patient progress notes and case repairer reached out to patient's friend Will Duran and Behzad Weiss and per Behzad, Gil Parra is Medical and Financial POA for patient, case repairer requested a copy of
paperwork that needs to be sent to [facility] for patient's chart. manager client support discussed insurance, son Behzad insists that patient has insurance, case repairer reached out to admissions to have patient social security numbers used to
check on any insurance and still no insurance came up. manager client support reached out to [facility] to see if disability paperwork for Medicaid could be completed.
Plan; Possible skilled placement at [facility] or [facility], per Loulou in admissions she will speak to the business office to see what needs to be completed from them to accept patient.
[2024-11-16 15:22] VITALS: BP 118/79
--- NOTE | 2024-11-16 16:04 | W.PN.HOSP.TC ---
Today's Communication/Plan
-
Medically stable for discharge, case management to facilitate
Assessment / Plan
Assessment / Plan
64M hx TBI uninsured tobacco use here for CVA.
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
hemosiderin deposition.
DALTON-10/19/24- PFO with positive agitated saline contrast bubble study.
Lower extremity ultrasound�no evidence of DVT.
CVS: S1-S2 normal
Chest: CTA B/L
Abdomen: Soft, NT / Bowel sounds present
Extremities: No edema, normal pulses
[employer] INTEGRATOR: mild left sided weakness, mild speech abnormality
# Vomiting and diarrhea-resolved. No further episodes of diarrhea
# Tachycardia-normal TSH likely secondary to volume depletion from vomiting and diarrhea.
EKG [facility].
Heart rate improved with IV fluids
resolved
Patient completed 14 day Medilynx monitor as below
#Acute CVA
Several scattered small nonhemorrhagic acute/subacute infarcts throughout the left cerebral hemisphere sinus� Concern for cardioembolic etiology
Completed Plavix DAPT, cont aspirin indefinitely
Statin started, cont
Hemoglobin A1c 5.3
DALTON shows PFO but no cardiac source of emboli. Ultrasound legs negative for DVT
14 day Medilynx monitor completed with cardio 10/20/24-11/02/24 results pending, cont follow up with cardio
Significant cognitive impairment noted BCAT 25/50 as per OT eval 10/20/24
Patient's ability to complete ADL and personal care likely significantly impaired
Psych eval appreciated patient does not have capacity for medical decision making
#Constipation
Abd X-ray appreciated moderate fecal material in rectum
resolved with laxative, patient since had large bowel movement after above Abd X-ray was done.
laxatives prn
# RVX-kbjkdd-ey with cardiology as outpatient
# Smoker-cessation counseling
# History of tracheostomy and PEG tube for prior head injury
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
# DVT prophylaxis-Lovenox
# Full code
PT/OT appreciated Acute vs SNF rehab, unfortunately options limited d/t lack of insurance, if going home patient needs 24H supervision d/t to need for initiation/sequencing/planning ADL, needs assistance with medical mgmt, IADL, recommended no
driving.
Anticipated Discharge: Within 24 hours
Subjective/Interval History
-
Date of Service: November 16, 2024
Objective Data
-
Labs:
Laboratory Results
11/16/24
06:50
WBC 8.3
Hgb 14.3
Hct 40.4
Plt Count 310
Sodium 137
Potassium 4.4
Chloride 102
Carbon Dioxide 22
BUN 13
Creatinine 0.9
Glucose 79
Calcium 8.4
Vital Signs:
Vital Signs
Temp Pulse Resp BP Pulse Ox
97.2 F 65 16 118/79 96
11/16/24 15:22 11/16/24 15:22 11/16/24 15:22 11/16/24 15:22 11/16/24 15:22
I&O
11/15/24 11/16/24 11/17/24
06:59 06:59 06:59
Intake Total 420 / 420 1680 / 1680
Balance 420 / 420 1680 / 1680
[2024-11-16] MEDS: LIPITOR 40 MG PO (17:01)
[2024-11-16] MEDS: LOVENOX 40 MG SC (17:01)
[2024-11-16 23:52] VITALS: BP 128/85
[2024-11-17 07:26] VITALS: BP 107/70
[2024-11-17] MEDS: LOW STRENGTH ASPIRIN 81 MG PO (07:39)
--- NOTE | 2024-11-17 11:20 | CM ---
Addendum entered by Eveline Okeefe 11/18/24 14:57:
[facility]

Policy # [id number]
CM to call [facility] at [phone] to initiate auth. Fax is [phone]
Attempted call to admissions to run pt's SS number to confirm active insurance, no answer.
Original Note:
Received a call from pt's friend Will informing that pt's Gil martinez, is actually the financial and medical POA as of 2019. Will stated he doesn't have the physical copy of the paperwork and has pictures sent from pt''s son that he will email
to CM. CM advised that an actual document have to be either faxed or scanned to be able to scan into pt's medical record. Will stated he is getting a physical copy mailed to him, he may have pt's son FedEx the paperwork to him if it'll be quicker
but will confirm if copy has been mailed out yet.
Will also confirmed that pt's [facility] [employer] [facility] insurance is active as of 11/14 and provided CM the member ID and policy numbers. Will stated he doesn't have physical insurance cards just yet. Will is aware that [facility]
are potential accepting facilities once POA paperwork is obtained.
CM spoke w/ pt's Gil martinez. Per Gil, he confirmed that POA was obtained in 2019. He stated pt may have copy in his home but knows the home is a 'zoo'. Gil stated he can attempt to get a physical copy from the office he completed POA through
in [place] considering the urgency for it. Gil stated he will speak w/ Will for this to be an option.
CM will follow up w/ [facility] admissions to confirm what is needed for acceptance
Plan: SNF; pending copy of POA paperwork and auth
--- NOTE | 2024-11-17 16:03 | W.PN.HOSP.TC ---
Today's Communication/Plan
-
Medically stable for discharge
Assessment / Plan
Assessment / Plan
64M hx TBI uninsured tobacco use here for CVA.
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
hemosiderin deposition.
DALTON-10/19/24- PFO with positive agitated saline contrast bubble study.
Lower extremity ultrasound�no evidence of DVT.
# Vomiting and diarrhea-resolved. No further episodes of diarrhea
# Tachycardia-normal TSH likely secondary to volume depletion from vomiting and diarrhea.
EKG [facility].
Heart rate improved with IV fluids
resolved
Patient completed 14 day Medilynx monitor as below
#Acute CVA
Several scattered small nonhemorrhagic acute/subacute infarcts throughout the left cerebral hemisphere sinus� Concern for cardioembolic etiology
Completed Plavix DAPT, cont aspirin indefinitely
Statin started, cont
Hemoglobin A1c 5.3
DALTON shows PFO but no cardiac source of emboli. Ultrasound legs negative for DVT
14 day Medilynx monitor completed with cardio 10/20/24-11/02/24 results pending, cont follow up with cardio
Significant cognitive impairment noted BCAT 25/50 as per OT eval 10/20/24
Patient's ability to complete ADL and personal care likely significantly impaired
Psych eval appreciated patient does not have capacity for medical decision making
#Constipation
Abd X-ray appreciated moderate fecal material in rectum
resolved with laxative, patient since had large bowel movement after above Abd X-ray was done.
laxatives prn
# CNP-boyslm-tp with cardiology as outpatient
# Smoker-cessation counseling
# History of tracheostomy and PEG tube for prior head injury
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
# DVT prophylaxis-Lovenox
# Full code
Anticipated Discharge: Within 24 hours
Subjective/Interval History
-
Date of Service: November 17, 2024
Objective Data
-
Vital Signs:
Vital Signs
Temp Pulse Resp BP Pulse Ox
97.9 F 66 16 107/70 94
11/17/24 07:26 11/17/24 07:26 11/17/24 07:26 11/17/24 07:26 11/17/24 07:26
I&O
11/16/24 11/17/24 11/18/24
06:59 06:59 06:59
Intake Total 1680 / 1680 720 / 720
Balance 1680 / 1680 720 / 720
[2024-11-17 16:20] VITALS: BP 117/83
[2024-11-17] MEDS: LIPITOR 40 MG PO (17:10)
[2024-11-17] MEDS: LOVENOX 40 MG SC (17:10)
[2024-11-17 23:21] VITALS: BP 118/72
[2024-11-18] MEDS: LOW STRENGTH ASPIRIN 81 MG PO (07:24)
[2024-11-18 07:30] VITALS: BP 118/77
--- NOTE | 2024-11-18 11:54 | W.PN.HOSP.TC ---
Today's Communication/Plan
-
PT/OT-SNF. CM aware. difficult disposition.
await placement
Assessment / Plan
Assessment / Plan
64M hx TBI uninsured tobacco use here for CVA.
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
hemosiderin deposition.
DALTON-10/19/24- PFO with positive agitated saline contrast bubble study.
Lower extremity ultrasound�no evidence of DVT.
# Vomiting and diarrhea-resolved. No further episodes of diarrhea
# Tachycardia-normal TSH likely secondary to volume depletion from vomiting and diarrhea.
EKG [facility].
Heart rate improved with IV fluids
resolved
Patient completed 14 day Medilynx monitor as below
#Acute CVA
Several scattered small nonhemorrhagic acute/subacute infarcts throughout the left cerebral hemisphere sinus� Concern for cardioembolic etiology
Completed Plavix DAPT, cont aspirin indefinitely
Statin started, cont
Hemoglobin A1c 5.3
DALTON shows PFO but no cardiac source of emboli. Ultrasound legs negative for DVT. Will need OP f/u with interventional cardiology for further treatment.
14 day Medilynx monitor completed with cardio 10/20/24-11/02/24 results pending, cont follow up with cardio
Significant cognitive impairment noted BCAT as per OT eval 10/20/24
Patient's ability to complete ADL and personal care likely significantly impaired
Psych eval appreciated patient does not have capacity for medical decision making
#Constipation
Abd X-ray appreciated moderate fecal material in rectum
resolved with laxative, patient since had large bowel movement after above Abd X-ray was done.
laxatives prn
# DCI-swnqzt-ju with cardiology as outpatient
# Smoker-cessation counseling
# History of tracheostomy and PEG tube for prior head injury
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
# DVT prophylaxis-Lovenox
# Full code
PT/OT-SNF. CM aware. difficult disposition.
Anticipated Discharge: Within 24 hours
Subjective/Interval History
-
Date of Service: November 18, 2024
Resting in bed comfortably
No overnight events
Objective Data
-
Vital Signs:
Vital Signs
Temp Pulse Resp BP Pulse Ox
98.0 F 63 20 118/77 97
11/18/24 07:30 11/18/24 07:30 11/18/24 07:30 11/18/24 07:30 11/18/24 07:30
I&O
11/17/24 11/18/24 11/19/24
06:59 06:59 06:59
Intake Total 720 / 720
Balance 720 / 720
Physical Exam
-
General: Well Developed, No Apparent Distress and Comfortable
Respiratory: Non Labored Respirations; Negative Accessory Resp Muscle Use
Cardiac: Regular Rhythm and S1/S2
GI: Nondistended
Neuro: Awake, Alert, Oriented (Place and person) and No Motor Deficits
Psych: Calm
--- NOTE | 2024-11-18 14:48 | CM ---
Addendum entered by Eveline Okeefe 11/18/24 15:03:
[facility]- [place]

Policy # [id number]
[facility] at [phone] to initiate auth. Fax is [phone]
Attempted call to admissions to run pt's SS number to confirm active insurance, no answer.
Original Note:
CM spoke w/ pt's michelle/Gil STEVENS, to confirm d/c plan to SNF. ARDEN informed [facility] is willing to accept pt pending bed availability. Gil shared he does not have any preferences and agreeable to [facility]. Since pt will only
receive STR at SNF, HILDA paperwork is not being requested by facility. Per Loulou[facility] admissions, since pt now has insurance, an auth will be the only thing needed to admit pt. Pt is now w/ [facility], effective 11/14/24.
ARDEN advised therapy that pt needs to be seen by OT to initiate auth today
Plan: [facility]; pending auth
[2024-11-18 15:00] VITALS: BP 138/81
[2024-11-18] MEDS: LIPITOR 40 MG PO (17:25)
[2024-11-18] MEDS: LOVENOX 40 MG SC (17:25)
[2024-11-18] MEDS: SENOKOT-S 1 TABLET PO (17:25)
[2024-11-18 23:01] VITALS: BP 124/87
[2024-11-19 07:30] VITALS: BP 117/75
[2024-11-19] MEDS: SENOKOT-S 1 TABLET PO ×2 (09:23→16:46)
--- NOTE | 2024-11-19 10:56 | W.PN.HOSP.TC ---
Today's Communication/Plan
-
Continue aspirin
Await placement
Medically stable
Assessment / Plan
Assessment / Plan
64M hx TBI uninsured tobacco use here for CVA.
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
hemosiderin deposition.
DALTON-10/19/24- PFO with positive agitated saline contrast bubble study.
Lower extremity ultrasound�no evidence of DVT.
# Vomiting and diarrhea-resolved. No further episodes of diarrhea
# Tachycardia-normal TSH likely secondary to volume depletion from vomiting and diarrhea.
Heart rate improved with IV fluids
resolved
Patient completed 14 day Medilynx monitor as below
#Acute CVA
Several scattered small nonhemorrhagic acute/subacute infarcts throughout the left cerebral hemisphere sinus� Concern for cardioembolic etiology
Completed Plavix DAPT, cont aspirin indefinitely
Statin started, cont
Hemoglobin A1c 5.3
DALTON shows PFO but no cardiac source of emboli. Ultrasound legs negative for DVT. Will need OP f/u with interventional cardiology for further treatment.
14 day Medilynx monitor completed with cardio 10/20/24-11/02/24 results pending, cont follow up with cardio
Significant cognitive impairment noted BCAT as per OT eval 10/20/24
Patient's ability to complete ADL and personal care likely significantly impaired
Psych eval appreciated patient does not have capacity for medical decision making
#Constipation
Abd X-ray appreciated moderate fecal material in rectum
resolved with laxative, patient since had large bowel movement after above Abd X-ray was done.
senokot.
# TAB-cjicqj-cz with cardiology as outpatient
# Smoker-cessation counseling
# History of tracheostomy and PEG tube for prior head injury
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
# DVT prophylaxis-Lovenox
# Full code
PT/OT-SNF. CM aware. Medically patient has been stable for discharge. Awaiting for placement.
Anticipated Discharge: Today
Subjective/Interval History
-
Date of Service: November 19, 2024
Watching TV
No complaint
Tolerating diet
Objective Data
-
Vital Signs:
Vital Signs
Temp Pulse Resp BP Pulse Ox
97.6 F 68 20 117/75 97
11/19/24 07:30 11/19/24 07:30 11/19/24 07:30 11/19/24 07:30 11/19/24 07:30
I&O
11/18/24 11/19/24 11/20/24
06:59 06:59 06:59
Intake Total 1560 / 1560
Balance 1560 / 1560
Physical Exam
-
General: Well Developed, No Apparent Distress and Comfortable
Respiratory: Non Labored Respirations; Negative Accessory Resp Muscle Use
Cardiac: Regular Rhythm and S1/S2
GI: Nondistended
Neuro: Awake, Alert, Oriented (Place and person) and Other (Left lower extremity weakness.)
Psych: Calm
--- NOTE | 2024-11-19 12:22 | CM ---
CM spoke w/ [facility] admissions, pt can be accepted there as [facility] does not have any beds.
CM attempted call to pt's friend, Will, to confirm [facility] is okay, left message. CM did speak w/ pt's stepson/POA yesterday who did not have any preferences of facilities.
CM called [facility]- [phone] to initiate auth. CM spoke w/ Josiah, provided pt's member ID and policy numbers. Per Josiah, couldn't determine if pt is either Medicare or Medicaid or commercial insurance. CM did inform the possibility of
commercial as pt does not qualify for Medicaid and is not of age yet for Medicare. Josiah stated that the auth request will be sent to verification to verify which plan pt has and if [facility] coordinates w/ that plan to approve auth vs CM having
to contact [facility] to obtain auth.
CM faxed clinicals to [phone] for review and verification of pt's insurance plan.
Intake # [id number]. Requesting dates of approval (11/20-11/25)
Plan: [facility]; pending auth.
[2024-11-19 13:14] VITALS: BP 131/87; PULSE 65; O2SAT 98
[2024-11-19 15:27] VITALS: BP 125/70
[2024-11-19 23:22] VITALS: BP 110/75
[2024-11-20 07:24] VITALS: BP 128/75
[2024-11-20 08:31] LABS: % Basophils 1.2 % (0-2); % Eosinophils 3.6 % (0-6); % Immature Granulocytes 0.3 % (0-0.5); % Lymphocytes 25.2 % (20.5-51.1); % Monocytes 12.1 % (1.7-9.3); % Neutrophils 57.6 % (42.2-75.2); Absolute Basophils 0.1 10^3/uL (0-0.2); Absolute Eosinophils 0.3 10^3/uL (0-0.7); Absolute Lymphocytes 1.9 10^3/uL (1.2-3.4); Absolute Monocytes 0.9 10^3/uL (0.1-0.6); Absolute Neutrophils 4.5 10^3/uL (1.4-6.5); Hematocrit 42.6 % (39.0-52.0); Hemoglobin 14.6 g/dL (13.0-18.0); Mean Corp Hgb Conc. 34.3 g/dL (33.0-37.0); Mean Corpuscular Hgb 33.1 pg (27.0-31.0); Mean Corpuscular Volume 96.6 fL (80.0-94.0); Mean Platelet Volume 9.7 fL (7.4-10.4); Nucleated Red Blood Cells % 0 % (-); Platelet Count 305 10^3/uL (130-400); Red Blood Cell Count 4.41 10^6/uL (4.70-6.10); Red Cell Dist. Width 13.2 % (11.5-14.5); White Blood Cell Count 7.7 10^3/uL (4.8-10.8)
[2024-11-20] MEDS: SENOKOT-S 1 TABLET PO (08:53)
[2024-11-20 09:17] LABS: Blood Urea Nitrogen 13 mg/dl (9-20); Carbon Dioxide 22 mmol/L (22-30); Chloride 103 mmol/L (98-107); Estimated Creatinine Clearance 71 ml/min; Glucose 90 mg/dl (70-99); Potassium 4.5 mmol/L (3.5-5.1); Sodium 136 mmol/L (135-145); eGFR > 60.00
--- NOTE | 2024-11-20 10:38 | W.PN.HOSP.TC ---
Today's Communication/Plan
-
await placement
Assessment / Plan
Assessment / Plan
64M hx TBI uninsured tobacco use here for CVA.
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
hemosiderin deposition.
DALTON-10/19/24- PFO with positive agitated saline contrast bubble study.
Lower extremity ultrasound�no evidence of DVT.
# Vomiting and diarrhea-resolved. No further episodes of diarrhea. tolerating diet.
# Tachycardia-normal TSH likely secondary to volume depletion from vomiting and diarrhea.
Heart rate improved with IV fluids
resolved
Patient completed 14 day Medilynx monitor as below
#Acute CVA
Several scattered small nonhemorrhagic acute/subacute infarcts throughout the left cerebral hemisphere sinus� Concern for cardioembolic etiology
Completed Plavix DAPT, cont aspirin indefinitely
Statin started, cont
Hemoglobin A1c 5.3
DALTON shows PFO but no cardiac source of emboli. Ultrasound legs negative for DVT. Will need OP f/u with interventional cardiology for further treatment.
14 day Medilynx monitor completed with cardio 10/20/24-11/02/24 results pending, cont follow up with cardio
Significant cognitive impairment noted BCAT 25/50 as per OT eval 10/20/24
Patient's ability to complete ADL and personal care likely significantly impaired
Psych eval appreciated patient does not have capacity for medical decision making
#Constipation
Abd X-ray appreciated moderate fecal material in rectum
resolved with laxative, patient since had large bowel movement after above Abd X-ray was done.
senokot.
# STP-nqoxnr-pu with cardiology as outpatient
# Smoker-cessation counseling
# History of tracheostomy and PEG tube for prior head injury
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
# DVT prophylaxis-Lovenox
# Full code
PT/OT-SNF. CM aware. Medically patient has been stable for discharge. Awaiting for placement.
Anticipated Discharge: Today
Subjective/Interval History
-
Date of Service: November 20, 2024
eating breakfast
Objective Data
-
Labs:
Laboratory Results
11/20/24
07:53
WBC 7.7
Hgb 14.6
Hct 42.6
Plt Count 305
Sodium 136
Potassium 4.5
Chloride 103
Carbon Dioxide 22
BUN 13
Creatinine 1.0
Glucose 90
Calcium 9.0
Vital Signs:
Vital Signs
Temp Pulse Resp BP Pulse Ox
98.3 F 57 18 128/75 97
11/20/24 07:24 11/20/24 07:24 11/20/24 07:24 11/20/24 07:24 11/20/24 07:24
I&O
11/19/24 11/20/24 11/21/24
06:59 06:59 06:59
Intake Total 1560 / 1560 840 / 840
Balance 1560 / 1560 840 / 840
Physical Exam
-
General: Well Developed, No Apparent Distress and Comfortable
Respiratory: Non Labored Respirations; Negative Accessory Resp Muscle Use
Cardiac: Regular Rhythm and S1/S2
GI: Nondistended
Neuro: Awake, Alert, Oriented (Place and person) and Other (Left lower extremity weakness.)
Psych: Calm
[2024-11-20 15:06] VITALS: BP 126/78
--- NOTE | 2024-11-20 15:43 | CM ---
Viewed on [facility] portal that this patient was approved for a senior care facility stay from 11/20/24 -11/25/24, Auth [id number]. Update to CM
--- NOTE | 2024-11-20 15:55 | CM ---
Pt approved for skilled rehab from 11/20/24 -11/25/24, Auth [id number]
CM updated [facility] admissions w/ auth information, able to accept tomorrow
CM spoke w/ pt at bedside to inform of d/c plan tomorrow. CM informed pt that his new insurance policy approved his initial rehab stay and SNF will update insurance as he cont to receive rehab. Pt was happy to hear he is able to d/c tomorrow and go
to SNF.
CM spoke w/ Will, pt's friend regarding d/c plan for tomorrow. ARDEN discussed transportation as pt doesn't qualify for an ambulance. Will agreeable to WC van as he is unable to transport because he will be at work. ARDEN stated transport will be
arranged tomorrow, CM provided acute care phone number.
Updated hospitalist
Plan: [facility]-----> CM WILL NEED TO SCHEDULE WC VAN TOMORROW MORNING
[2024-11-20 16:07] VITALS: BP 131/94; PULSE 77; O2SAT 94
[2024-11-20] MEDS: ASPIR LOW (ENTERIC COATED) 81 MG PO (17:56)
[2024-11-20] MEDS: SENOKOT-S PO ×2 (17:56→17:58)
[2024-11-20 23:18] VITALS: BP 111/74
[2024-11-21 07:00] VITALS: BP 125/81
[2024-11-21] MEDS: SENOKOT-S PO (09:44)
[2024-11-21] MEDS: ASPIR LOW (ENTERIC COATED) 81 MG PO (09:45)
--- NOTE | 2024-11-21 12:07 | CM ---
Patient to transfer to [facility] today at 2pm, by ambulance, friend, Will has been notified, for transfer, admissions are a=[facility] of plan and confirmed bed for patient.
[facility]
Report [phone]
fax [phone]
--- NOTE | 2024-11-21 13:27 | W.DCSUMMARY ---
Discharge Summary
Discharge Data
Date of Admission: 10/19/24
Date of Discharge: 11/21/24
-
Pending Results: No
Hospital Course
Discharging Physician : Dr. Caitie Aparicio
Disposition :
Primary care physician :
Principal Discharge diagnosis :
1. Acute left MCA territory infarct
2. History of prior stroke
3. Patent foramen ovale
4. Constipation
5. Dyslipidemia
6. Hypertension
7. Prior history of traumatic brain injury require PEG tube and tracheostomy
8. 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
9. Significant cognitive impairment noted BCAT as per OT eval 10/20/24, but during discharge she was pretty much awake and alert
Chronic Discharge diagnosis :
History of present illness:
This is a 63-year-old with past medical history significant for TBI, known word finding difficulties, prior occipital CVA about 15 years ago, brought in by EMS after a roommate found him to have some word finding difficulties and dropping objects.
Patient is a fairly poor historian likely due to memory issues. He himself denies any symptoms. Per EMS record with a roommate came home from work at around 6 PM and found patient with slurred speech and dropping objects. Was reported to be
incomprehensible which is unusual for him. Was having difficulty with was saying things that were completely incomprehensible. He had difficulty using a zipper as well as using utensils to eat. Patient himself denies any changes. He denies any
weakness. He reports some mild tingling at the fingertips but otherwise no other focal neurological deficits. He remembers his history of TBI. He does not remember his history of a CVA. He denies taking any medications. He denies having any
facial asymmetry, difficulty swallowing or speaking.
In the emergency department he was afebrile, blood pressure was 145/97 with a pulse of 96. ECG showed normal sinus rhythm with a rate of 97. He had a CT of the head which shows no acute findings. CBC was unremarkable. Electrolytes BUN/creatinine
were within normal range.
Hospital Course :
So patient admitted for dysarthria and incoordination were initial workup in the ER showed no acute abnormality, eventually had an MRI which showed multiple stroke in the territory of left MCA.
Patient seen by neurology and eventually had echo and DALTON which were concerning for PFO.
Seen by cardiology, they recommend closure of PFO but look like patient was hesitant to go for it now but look like he is going to follow-up as an outpatient and now opted for medical management per cardiology.
While cardiology recommended placing 14 day Medilynx prior to d/c, which already been placed.
After that since patient had difficulty going back to his places he was living a roommate.
Patient seen by PT OT and recommendation [facility] [place] [facility] versus acute rehab, look like he was not able to get into acute rehab and eventually took some time for him to get approval for [facility] [facility] placement.
During hospitalization patient condition improving and on my eval today he was awake, alert and oriented x 3, some degree of cognitive decline appreciated but admit he is able to move around and denies any weakness or numbness.
Advised about continue to stay away from smoking and have close follow-up with primary care, cardiology and neurology as an outpatient.
Advised about return back to the hospital if symptoms return also advised about compliance with medication.
Patient started on statin and aspirin upon discharge well during hospitalization given Plavix as well for 21-day.
Need indefinitely to be on aspirin and statin for now.
All discussed with the patient in detail and expressed understanding.
Discharge Instructions:
Discharge Diagnosis/ProceduresStroke
PFO
Chronic 5 mm right pontine cavernous venous
malformation
Diet Low Cholesterol
Activity As tolerated,With assistance
Driving Restrictions No driving
Other Services PT,OT
Instructions: Quitting smoking for adults
Stand-Alone Forms:
Changes to Home Medications: No
Discharge Medications:
DC Medications w/original date entered in [employer]
aspirin 81 mg chewable tablet 81 mg PO DAILY Blood clot prevention/tx #0 tabs 10/28/24
atorvastatin 40 mg tablet 40 mg PO QPM High cholesterol #30 tabs 10/28/24
Home Medication Changes
Pending Results: No
Additional Pending Results:
Physical exam:
General: Awake, alert and oriented x3, not in distress and holds appropriate conversation.
HEENT: No active discharge, ecchymosis or bruising, moist lips, tongue and mucous membrane.
Eyes: No discharge or red conjunctiva, no nystagmus, pupils are reactive and equal
Neck:Supple, no JVD no bruit no goiter.
Respiratory: Normal AP contour and diameter, normal chest wall movement, normal respiratory effort, no respiratory distress,
Lungs: Good air entry bilaterally, no wheezing or rhonchi, no rales or crackles
Heart: S1, S2 regular, normal rate, no added sound.
Gastrointestinal: Positive bowel sounds, soft, nontender, no guarding or rigidity or organomegaly
Musculoskeletal: , no chest wall abnormality or tenderness. All joints and extremities have good range of motion, no muscle tenderness or any joint swelling or tenderness.
Extremities: No pitting edema, good peripheral pulses, good range of motion
Skin: Warm and dry, normal color.
Neurological: Awake, alert and oriented x3, cranial nerve II-XII grossly intact, speech clear and comprehensive, good muscle tone, normal sensory and motor function, moves extremities freely, answer question properly
Psychiatric: Normal mood, normal thought and judgment, normal affect,
Condition on discharge: Awake, alert and oriented x3, answer question properly, able to make own decision and need ob gyn physician assistant for activities of daily living, speech clear and comprehensive, continent of the bowel and bladder, ambulate without
ob gyn physician assistant, will be [facility] as he has been in the hospital for 33 days.
Discharge Plan
-
Patient Disposition: Care Home/SNF
Discharge Diagnosis/Procedures: Stroke
PFO
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
Condition: Fair
Diet: Low Cholesterol
Activity: With assistance and As tolerated
Driving Restrictions: No driving
Other Services: PT and OT
Activity Restrictions/Additional Instructions:
DO not smoke again
Instructions: Quitting smoking for adults
Referrals:
Rudy Lara MD [Active] -
Janel Sky MD [Active] - 11/26/24 3:40 pm (You have an appt to see Dr. Sky on 11/26/24 at 3:40 PM at the [facility] office to discuss the results of your heart monitor and to talk to you about possible PFO (patent foramen ovale) closure that might
help reduce risk of future stroke. )
UNKNOWN - PT DOES,NOT KNOW [Family Provider] -
Additional Discharge Medication Instructions: Needs to check comprehensive metabolic panel and CBC in 3 to 4 weeks
Prescriptions:
New
atorvastatin 40 mg Tablet
40 mg PO QPM Qty: 30 0RF
aspirin 81 mg Tablet,Chewable
81 mg PO DAILY Qty: 0 0RF
Discharge Orders:
Discharge Patient (As Directed); Ordered 11/21/24
Ordered By: Caitie Aparicio
Discharge Date and Time
Discharge Date/Time: 11/21/24 14:41
Print Language: BELARUSIAN
[2024-11-21 14:15] VITALS: BP 129/86
--- NOTE | 2024-11-21 18:08 | W.DS.TRANS ---
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
-
Discharge Instructions:
Discharge Diagnosis/Procedures Stroke
PFO
Chronic 5 mm right pontine cavernous venous
malformation
Diet Low Cholesterol
Activity As tolerated,With assistance
Driving Restrictions No driving
Other Services PT,OT
Instructions: Quitting smoking for adults
Stand-Alone Forms:
Changes to Home Medications: No
Discharge Medications:
DC Medications w/original date entered in [employer]
aspirin 81 mg chewable tablet 81 mg PO DAILY Blood clot prevention/tx #0 tabs 10/28/24
atorvastatin 40 mg tablet 40 mg PO QPM High cholesterol #30 tabs 10/28/24
Home Medication Changes
Pending Results: No
Additional Pending Results:
Physical exam:
General: Awake, alert and oriented x3, not in distress and holds appropriate conversation.
HEENT: No active discharge, ecchymosis or bruising, moist lips, tongue and mucous membrane.
Eyes: No discharge or red conjunctiva, no nystagmus, pupils are reactive and equal
Neck:Supple, no JVD no bruit no goiter.
Respiratory: Normal AP contour and diameter, normal chest wall movement, normal respiratory effort, no respiratory distress,
Lungs: Good air entry bilaterally, no wheezing or rhonchi, no rales or crackles
Heart: S1, S2 regular, normal rate, no added sound.
Gastrointestinal: Positive bowel sounds, soft, nontender, no guarding or rigidity or organomegaly
Musculoskeletal: , no chest wall abnormality or tenderness. All joints and extremities have good range of motion, no muscle tenderness or any joint swelling or tenderness.
Extremities: No pitting edema, good peripheral pulses, good range of motion
Skin: Warm and dry, normal color.
Neurological: Awake, alert and oriented x3, cranial nerve II-XII grossly intact, speech clear and comprehensive, good muscle tone, normal sensory and motor function, moves extremities freely, answer question properly
Psychiatric: Normal mood, normal thought and judgment, normal affect,
Condition on discharge: Awake, alert and oriented x3, answer question properly, able to make own decision and need speech language pathologist assistant for activities of daily living, speech clear and comprehensive, continent of the bowel and bladder, ambulate without
speech language pathologist assistant, will be transferred to long-term home for rehabilitation as he has been in the hospital for 33 days.
== END 2024-11-21 14:41 | DRG 65 ==
LOC: 4 WEST ACU 13:56
PROVIDERS: Hospitalist; Internal Medicine; ADMITTING PHYSICIAN Internal Medicine; ATTENDING PHYSICIAN Internal Medicine; CONSULT PHYSICIAN Physical Medicine & Rehabilitation; CONSULT PHYSICIAN Psychiatry & Neurology Clinical Neurophysiology; CONSULT PHYSICIAN Psychiatry & Neurology Psychiatry; EMERGENCY PHYSICIAN Emergency Medicine; OTHER PHYSICIAN Nuclear Medicine Nuclear Cardiology
PROC: B24BZZ4 Ultrasonography of Heart with Aorta, Transesophageal (ICD-10-PCS; 2024-10-19)
DX: I63.512 Cerebral infarction due to unspecified occlusion or stenosis of left middle cerebral artery (principal); G93.49 Other encephalopathy; Q21.12 Patent foramen ovale; R47.01 Aphasia; R47.81 Slurred speech; F17.210 Nicotine dependence, cigarettes, uncomplicated; G31.9 Degenerative disease of nervous system, unspecified; R19.7 Diarrhea, unspecified; R11.2 Nausea with vomiting, unspecified; R27.0 Ataxia, unspecified; R56.9 Unspecified convulsions; E86.9 Volume depletion, unspecified; R47.1 Dysarthria and anarthria; R13.12 Dysphagia, oropharyngeal phase; E55.9 Vitamin D deficiency, unspecified; E78.5 Hyperlipidemia, unspecified; F10.10 Alcohol abuse, uncomplicated; K59.00 Constipation, unspecified; F41.1 Generalized anxiety disorder; I10 Essential (primary) hypertension; Q27.9 Congenital malformation of peripheral vascular system, unspecified; Z80.2 Family history of malignant neoplasm of other respiratory and intrathoracic organs; Z87.820 Personal history of traumatic brain injury; Z88.1 Allergy status to other antibiotic agents; Z56.0 Unemployment, unspecified; Z88.0 Allergy status to penicillin; Z59.71 Insufficient health insurance coverage
CPT/HCPCS: 70450; 70544; 70548; 70551; 74018; 80048; 80053; 80061; 80306; 81003; 81015; 82077; 82607; 82746; 82962; 83036; 83735; 84100; 84443; 85025; 85027; 85652; 87086; 92507; 92523; 92526; 92610; 93005; 93312; 93320; 93325; 93880; 93970; 97110; 97112; 97116; 97129; 97163; 97167; 97530; 97535; 99285; 99406; A9585

== ENCOUNTER → 2024-12-31 09:43 | Outpatient (REF) | payer OTHER, SELFPAY ==
[2024-12-31 11:02] LABS: % Basophils 0.8 % (0-2); % Eosinophils 0.8 % (0-6); % Immature Granulocytes 0.3 % (0-0.5); % Lymphocytes 14.9 % (20.5-51.1); % Monocytes 8.7 % (1.7-9.3); % Neutrophils 74.5 % (42.2-75.2); Absolute Basophils 0.1 10^3/uL (0-0.2); Absolute Eosinophils 0.1 10^3/uL (0-0.7); Absolute Lymphocytes 1.4 10^3/uL (1.2-3.4); Absolute Monocytes 0.8 10^3/uL (0.1-0.6); Hematocrit 43.4 % (39.0-52.0); Hemoglobin 14.9 g/dL (13.0-18.0); Mean Corp Hgb Conc. 34.3 g/dL (33.0-37.0); Mean Corpuscular Hgb 34.5 pg (27.0-31.0); Mean Corpuscular Volume 100.5 fL (80.0-94.0); Mean Platelet Volume 9.6 fL (7.4-10.4); Nucleated Red Blood Cells % 0 % (-); Platelet Count 351 10^3/uL (130-400); Red Blood Cell Count 4.32 10^6/uL (4.70-6.10); White Blood Cell Count 9.3 10^3/uL (4.8-10.8)
[2024-12-31 11:34] LABS: ALT (SGPT) 52 U/L (0-50); AST (SGOT) 40 U/L (17-59); Albumin 4.3 g/dl (3.5-5.0); Alkaline Phosphatase 119 U/L (38-126); Blood Urea Nitrogen 10 mg/dl (9-20); Calcium 9.4 mg/dl (8.4-10.2); Carbon Dioxide 22 mmol/L (22-30); Chloride 104 mmol/L (98-107); Glucose 99 mg/dl (70-99); HDL Cholesterol 87 mg/dl; LDL Cholesterol, Calculated 51 mg/dl; Potassium 4.4 mmol/L (3.5-5.1); Sodium 136 mmol/L (135-145); Total Bilirubin 1.3 mg/dl (0.2-1.3); Total Cholesterol 149 mg/dl (50-199); Total Protein 7.4 g/dl (6.3-8.2); Triglyceride 58 mg/dl (10-149); Very Low Density Lipoprotein 11 mg/dl (0-30); eGFR > 60.00
[2024-12-31 12:07] LABS: PSA, Total - Screen 3.65 ng/ml (0.0-4.0); TSH 1.57 uIU/ml (0.47-4.68)
[2024-12-31 12:37] LABS: Glycohemoglobin (HgbA1c) 5.3 % (4.0-5.6)
== END ==
LOC: RCS 09:43
PROVIDERS: ATTENDING PHYSICIAN Nurse Practitioner
DX: R00.0 Tachycardia, unspecified (principal); Z12.5 Encounter for screening for malignant neoplasm of prostate; Z76.89 Persons encountering health services in other specified circumstances; E78.5 Hyperlipidemia, unspecified; I10 Essential (primary) hypertension
CPT/HCPCS: 36415; 80053; 80061; 83036; 84443; 85025; 93225; 93226; G0103

== ENCOUNTER → 2025-01-07 09:47 | Outpatient (REF) | payer OTHER, SELFPAY | LOC: HWRAD 09:47 | PROVIDERS: ATTENDING PHYSICIAN Nurse Practitioner | DX: F17.210 Nicotine dependence, cigarettes, uncomplicated (principal) | CPT/HCPCS: 71271 ==